=== PATIENT | male | born 1935 | race Caucasian/White ===

== ENCOUNTER → 2016-06-29 | Outpatient (CLI) | payer OTHER ==
[~2016-06-29] MED LIST: AMLO5CAP3 PO; PRVC20 PO; TRAV0.00 OPB; [UNRECOGNIZED DRUG - CODE] OPB
[2016-06-29 12:25] LABS: BASO % 0.8 %; BASO ABS # 0.06 K/uL (0-0.2); COMPLETE YES; EOS % 3.8 %; HEMATOCRIT 45.6 % (42-52); IG% 0.1 %; LYMPH % 25.5 %; LYMPH ABS # 1.83 K/uL (1.2-3.4); MEAN CORPUSCULAR HEMOGLOBIN 31.5 pg (25-34); MEAN CORPUSCULAR HGB CONC 33.6 g/dl (32-36); MEAN PLATELET VOLUME 10.3 fL (7.4-10.4); MONO % 10.2 %; NEUT % 59.6 %; PLATELET COUNT 199 K/uL (130-400); RED BLOOD COUNT 4.85 M/uL (4.7-6.1); WHITE BLOOD COUNT 7.19 K/uL (4.8-10.8)
[2016-06-29 12:44] LABS: ALT/SGPT 20 U/L (12-78); BLOOD UREA NITROGEN 29 mg/dl (7-18); BUN/CREATININE RATIO 26.6 (10-20); CALCIUM 8.9 mg/dl (8.5-10.1); CARBON DIOXIDE 30 mmol/L (21-32); CHLORIDE 108 mmol/L (98-107); CHOLESTEROL 189 mg/dl (0-200); GLUCOSE 108 mg/dl (70-99); POTASSIUM 4.2 mmol/L (3.5-5.1); SODIUM 143 mmol/L (136-145)
[2016-06-29 12:55] LABS: ALB/GLOB RATIO 1.2 (0.9-2); ALKALINE PHOSPHATASE 72 U/L (45-117); AST/SGOT 18 U/L (15-37); CHOLESTEROL/HDL RATIO 4.3; HDL CHOLESTEROL 44 mg/dl; LDL CHOLESTEROL CALCULATED 122 mg/dl; TRIGLYCERIDES 114 mg/dl (0-150); VERY LOW DENSITY LIPOPROT CALC 23 mg/dl
== END | disposition home or self-care (01) ==
LOC: C.LAB1850 09:44
PROVIDERS: ATTEND Internal Medicine
DX: D69.6 Thrombocytopenia, unspecified (principal); E78.5 Hyperlipidemia, unspecified

== ENCOUNTER → 2016-11-29 | Day surgery (SDC) | payer OTHER ==
[2016-11-22 10:13] VITALS: Ht 172.7 cm; Wt 68.2 kg
[~2016-11-29] VITALS: Ht 172.7 cm; Wt 68.2 kg
[~2016-11-29] MED LIST changes: +BRIMONIDINE TART 0.2% OP SOLN PER DROP CHARGE OPR ONE; +BRIMONIDINE TART 0.2% OP SOLN PER DROP CHARGE OPR SCH; +BRIMONIDINE TARTRATE 0.2% 5ML OP SCH; +PILOCARPINE HCL 2% OP SOLN PER DROP CHARGE OPR SCH; +PROPARACAINE 0.5% OP SOLN PER DROP CHARGE OPR SCH; +PrednisoLONE ACET 1% OP SUSP 5 ML BTL OP SCH; +PrednisoLONE ACET 1% OP SUSP 5 ML BTL OPR ONE; +[UNRECOGNIZED DRUG - CODE] OPB; -[UNRECOGNIZED DRUG - CODE] OPB
[2016-11-29 12:00] VITALS: BP 136/76; PULSE 61; O2SAT 97
--- NOTE | 2016-11-29 12:04 | Discharge Instructions-SurgCtr ---
Discharge Instructions Date of Service Nov 29, 2016. Visit Reason for Visit: Right Eye Glaucoma Discharge Discharge Diagnosis / Problem: cataract Discharge Goals Goal(s): Improve function, Improve disease control Activity Recommendations Activity Limitations: per Instructions/Follow-up section Anesthesia . Post Anesthesia Instructions: If you have had General Anesthesia or IV Sedation: * Do not drive today. * Resume driving when surgeon permits. * Do not make important decisions or sign legal documents today. * Call surgeon for: 1. Temperature elevations greater than 101 degrees F. 2. Uncontrollable pain. 3. Excessive bleeding. 4. Persistent nausea and vomiting. 5. Medication intolerance (nausea, vomiting or rash). * For nausea and vomiting use only clear liquids such as: tea, soda, bouillon until nausea subsides, then gradually increase diet as tolerated. * If you have any concerns or questions, call your surgeon's office. If physician is unavailable and it is an emergency, call 911 or go to the nearest emergency room. . Instructions / Follow-Up Instructions / Follow-Up ACTIVITY RECOMMENDATIONS: * No limitations RETURN TO SCHOOL/WORK: * No limitations DIET: * No limitations MEDICATIONS: Resume previous medications unless instructed otherwise by your surgeon. * Please use Prednisolone acetate drops prescription given to you at your office appointment as follows: 1 drop in effected eye 4 times a day for 5 days. * Continue all glaucoma drops as usual with no interruption to either eye. SPECIAL CARE INSTRUCTIONS: Call your doctor at with any concerns or problems. FOLLOW UP VISIT: Follow-up with Dr Dugan in 1 hour. Diet Recommendations Home Diet: resume previous diet Pending Studies Studies pending at discharge: no Medical Emergencies . Who to Call and When: Medical Emergencies: If at any time you feel your situation is an emergency, please call 911 immediately. . Non-Emergent Contact Non-Emergency issues call your: [employer] . . "Provider Documentation" section prepared by Hamzah Dugan. .
--- NOTE | 2016-11-29 12:05 | [facility] Operative Report ---
Operative Report Date of Service Nov 29, 2016. Operative Report Diagnosis: Glaucoma, right eye Procedure: SLT inferior 180 degrees, 52 spots, 1.6 mj Complications: none I attest to the content of the Intraoperative Record and any orders documented therein. Any exceptions are noted below.
== END | disposition home or self-care (01) ==
LOC: X.SURG 10:55
PROVIDERS: ATTEND Ophthalmology
DX: H40.9 Unspecified glaucoma (principal); I10 Essential (primary) hypertension

== ENCOUNTER → 2016-12-30 | Outpatient (CLI) | payer OTHER ==
[~2016-12-30] MED LIST changes: -BRIMONIDINE TART 0.2% OP SOLN PER DROP CHARGE OPR ONE; -BRIMONIDINE TART 0.2% OP SOLN PER DROP CHARGE OPR SCH; -BRIMONIDINE TARTRATE 0.2% 5ML OP SCH; -PILOCARPINE HCL 2% OP SOLN PER DROP CHARGE OPR SCH; -PROPARACAINE 0.5% OP SOLN PER DROP CHARGE OPR SCH; -PrednisoLONE ACET 1% OP SUSP 5 ML BTL OP SCH; -PrednisoLONE ACET 1% OP SUSP 5 ML BTL OPR ONE
== END | disposition home or self-care (01) ==
LOC: C.LAB1850 09:26
PROVIDERS: ATTEND Internal Medicine
DX: R73.9 Hyperglycemia, unspecified (principal)

== ENCOUNTER → 2017-06-29 | Outpatient (CLI) | payer OTHER ==
[~2017-06-29] MED LIST changes: +[UNRECOGNIZED DRUG - CODE] OPB; -[UNRECOGNIZED DRUG - CODE] OPB
[2017-06-29 12:26] LABS: ALT/SGPT 20 U/L (12-78); AST/SGOT 16 U/L (15-37); BLOOD UREA NITROGEN 25 mg/dl (7-18); CALCIUM 9.1 mg/dl (8.5-10.1); CARBON DIOXIDE 31 mmol/L (21-32); CHOLESTEROL 180 mg/dl (0-200); CREATININE 1.15 mg/dl (0.60-1.40); GLUCOSE 102 mg/dl (70-99); POTASSIUM 3.9 mmol/L (3.5-5.1); SODIUM 141 mmol/L (136-145)
[2017-06-29 12:30] LABS: LDL CHOLESTEROL CALCULATED 112 mg/dl
== END | disposition home or self-care (01) ==
LOC: C.LAB1850 09:53
PROVIDERS: ATTEND Internal Medicine
DX: E78.5 Hyperlipidemia, unspecified (principal); N40.0 Benign prostatic hyperplasia without lower urinary tract symptoms; I10 Essential (primary) hypertension

== ENCOUNTER 2021-08-07 10:01 | Inpatient (IN) ==
[2021-08-07] MEDS ORDERED: SODIUM CHLORIDE 0.9% 500 ML IV STA (10:21)
--- NOTE | 2021-08-07 10:23 | Emergency Department Note ---
Impression & Plan Empyema lung ADMIT ED Provider Note HPI: The patient is an 86-year-old gentleman with history of adenocarcinoma of the lung, malignant pleural effusion, history of COPD, presents the emergency department with some difficulty with his breathing last night. Patient states that he is having "hiccups" that were keeping him from getting any sleep last night. He does state that he seems to be working somewhat harder to breathe during this time as well. Denies any difficulty swallowing, denies any chest pain. Patient tells me that he had a Pleurx catheter removed yesterday for his pleural effusion, there was some surrounding cellulitis and purulence at the site, about 250 cc of fluid were removed from the site yesterday. Patient denies any fevers overnight, denies any chills, the site of the Pleurx catheter removal appears with some mild surrounding cellulitis but otherwise no crepitus to palpation and patient is in no acute distress. He does have bilateral breath sounds on presentation. He is saturating at 92% on room air on presentation. ROS: -Pulmonary: Shortness of breath, hiccups *10 point review systems was conducted and is otherwise negative unless stated above *Outpatient medications and allergy history reviewed PE: General: Alert, NAD HEENT: Normocephalic, atraumatic Eyes: Extraocular eye movement is intact, no scleral erythema Pulmonary: Diminished breath sounds on the right side, no wheezing or crackles Cardio: Regular rate and rhythm GI: Abdomen is soft, nontender : No suprapubic tenderness MSK: No evidence of trauma or malformation of the extremities, no edema Skin: No evidence of rash, there is some mild to moderate erythema surrounding the site on the right lower chest of catheter removal, no crepitus to palpation, no active purulent drainage Neuro: Alert, no focal deficits 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 This is in the setting of having a Pleurx catheter removed 2 days ago for malignant pleural effusion. He does have some cellulitic changes to the site. On arrival to the ED the patient does display some slight increased work of breathing on my exam but he is saturating well on room air, denies any chest pain, blood pressure stable. Shortly after arrival IV was established, lab work obtained, patient was placed on it architect. Lab work shows evidence of a new leukocytosis of 15.2, blood cultures were drawn in the ED, patient was started prophylactically on vancomycin and Zosyn. CT angiography of the chest does not show any evidence of pulmonary embolism but does show evidence of what appears to be an empyema in the region of the right lower lung where catheter was recently removed. I discussed the above findings with on-call pulmonology, Dr. Cho, who is in agreement for consultation states the patient will require pigtail catheter to be placed for evacuation of empyema. Patient was placed on 2 L nasal cannula oxygen, saturations remained in the high 90s following this, he has not had any true hypoxic episodes while here in the ED. Case was discussed with the on-call admitting team, [facility] and the patient was admitted in stable condition for further care and pulmonology consultation for empyema. Diagnosis: 1. Empyema, acute, right-sided 2. Leukocytosis 3. Dyspnea 4. History of malignant pleural effusion 5. Cellulitis of right chest wall Disposition: Admission Selvin Sutton DO Emergency Medicine Past Med/Surg History Medical History Actinic keratosis Acute gout Benign colon polyp BPH loc w urin obs/LUTS Carotid artery plaque Empyema lung Essential (primary) hypertension Glaucoma Hematuria Metastatic adenocarcinoma Pleural effusion on right Renal cyst, right Sensorineural hearing loss (SNHL) of both ears Tinnitus Surgical History History of prostate biopsy S/P cataract surgery Status post Mohs surgery Family History Daughter Colon cancer Mother Congestive heart failure Father Congestive heart failure Denies family history of Ovarian cancer Prostate cancer Myocardial infarction Breast cancer Social History Smoking Status: Former smoker Cigarettes Per Day: PIPE SMOKE FOR 5 YEARS - QUIT 50 YEARS AGO; Second Hand Exposure: No; Hx Alcohol Use: No Hx Substance Use: No Preferred Language: Colombian Communication Ability: Effective Visual Impairment: No Limitations Hearing Ability: Normal 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 Required: No Beliefs That Will Affect Care: None marital status: Current Living Situation: Spouse current occupational status: retired Feels Safe at Home: Yes Childhood Exposure to Second-Hand Smoke: Yes Dental Care, Regularly: Yes Physical Activity Frequency: Daily Seatbelt Use: always Sunscreen Use: Yes Assistive Devices: Glasses Allergies Allergies Allergy/AdvReac Type Severity Reaction Status Date / Time HMG-CoA-R Inhibitors Allergy Unknown Unknown Uncoded 08/07/21 11:11 Home Meds Home Medications Medication Instructions Recorded Confirmed travoprost 0.004 % eye drops 1 drops OP QPM 12/17/18 08/07/21 (Travatan Z) timolol 0.5 % eye drops 1 drp OPHTHALMIC (EYE) BID 05/18/20 08/07/21 pembrolizumab 25 mg/mL intravenous See Rx Instructions IV .COMPLEX 06/25/21 08/07/21 solution (Keytruda) Previous Rx's Medication Instructions Recorded pravastatin 20 mg tablet 20 mg PO DAILY #90 tab 08/07/20 tamsulosin 0.4 mg capsule 0.4 mg PO DAILY #90 cap 09/24/20 amlodipine 5 mg-benazepril 20 mg 1 cap PO DAILY #90 cap 11/17/20 capsule (Lotrel) ergocalciferol (vitamin D2) 1,250 1,250 mcg PO .COMPLEX #12 cap 05/11/21 mcg (50,000 unit) capsule tiotropium 2.5 mcg-olodaterol 2.5 2 puff INHALATION DAILY #4 g 07/02/21 mcg/actuation mist for inhalation (Stiolto Respimat) amoxicillin 875 mg-potassium 1 tab PO BID 14 Days #28 tab 08/05/21 clavulanate 125 mg tablet doxycycline hyclate 100 mg capsule 100 mg PO BID 14 Days #28 cap 08/05/21 Results & Data (ED) Vital Signs Vital Signs - 24 hr 08/07/21 10:07 08/07/21 10:56 08/07/21 11:02 Temperature 36.6 C Temperature Source Temporal Artery Scan Pulse Rate 105 H Pulse Rate [Apical] 77 Pulse Rhythm [Apical] Regular Respiratory Rate 18 16 Respiratory Effort / Characteristics Non-Labored Respiratory Depth Normal Blood Pressure 120/68 Blood Pressure [Right Arm] 102/50 L Blood Pressure Mean 85 Blood Pressure Mean [Right Arm] 67 Pulse Oximetry 92 96 99 Oxygen Delivery Method Room Air Nasal Cannula Room Air Oxygen Flow Rate 2 Sepsis Recent Fever Within 48 Hours No Sepsis New/Unexplained Change in Mental Status No Sepsis Action Taken by Nursing No Action Required Laboratory Data Result diagrams: 08/07/21 10:39 08/07/21 10:39 Lab Results 08/07/21 08/07/21 08/07/21 Range/Units 10:39 10:39 10:39 WBC 15.27 H (4.8-10.8) K/uL RBC 4.13 L (4.7-6.1) M/uL Hgb 13.0 L (14.0-18.0) g/dL Hct 39.3 L (42-52) % MCV 95.2 (80-100) fL MCH 31.5 (25-34) pg MCHC 33.1 (32-36) g/dL RDW Std Deviation 49.7 H (36.4-46.3) fL RDW Coeff of Nuno 14.4 (11.5-14.5) % Plt Count 558 H (130-400) K/uL MPV 9.3 (7.4-10.4) fL Immature Gran % (Auto) 0.4 % Neut % (Auto) 87.6 % Lymph % (Auto) 6.8 % [place] % (Auto) 4.7 % Eos % (Auto) 0.3 % Baso % (Auto) 0.2 % Neut # (Auto) 13.38 H (1.4-6.5) K/uL Lymph # (Auto) 1.04 L (1.2-3.4) K/uL [place] # (Auto) 0.72 H (0.11-0.59) K/uL Eos # (Auto) 0.04 (0-0.5) K/uL Baso # (Auto) 0.03 (0-0.2) K/uL Immature Gran # (Auto) 0.06 H (0.00-0.02) K/uL PT 11.9 (9.0-12.0) Seconds INR 1.1 (0.9-1.1) APTT 30.4 (21.0-31.0) Seconds PTT Ratio 1.1 Sodium (136-145) mmol/L Potassium (3.5-5.1) mmol/L Chloride (98-107) mmol/L Carbon Dioxide (21-32) mmol/L Anion Gap (3-11) BUN (6-23) mg/dl Creatinine (0.6-1.4) mg/dl Est Cr Clr Drug Dosing ml/min Est GFR ( Amer) ml/min Est GFR (Non-Af Amer) ml/min BUN/Creatinine Ratio (10-20) Glucose (70-99(Fasting)) mg/dl Calcium (8.5-10.1) mg/dl Total Bilirubin (0.2-1.0) mg/dl AST (13-39) U/L ALT (7-52) U/L Alkaline Phosphatase (34-104) U/L Troponin I High Sens 2.6 (0-20) pg/ml Total Protein (6.0-8.3) gm/dl Albumin (3.4-5.0) gm/dl Globulin (2.5-4.0) gm/dl Albumin/Globulin Ratio (0.9-2) Lipase (11-82) U/L SARS-CoV-2 (PCR) (Negative) Influenza Type A (PCR) (Neg) Influenza Type B (PCR) (Neg) RSV (RT-PCR) (Neg) 08/07/21 08/07/21 Range/Units 10:39 12:17 WBC (4.8-10.8) K/uL RBC (4.7-6.1) M/uL Hgb (14.0-18.0) g/dL Hct (42-52) % MCV (80-100) fL MCH (25-34) pg MCHC (32-36) g/dL RDW Std Deviation (36.4-46.3) fL RDW Coeff of Nuno (11.5-14.5) % Plt Count (130-400) K/uL MPV (7.4-10.4) fL Immature Gran % (Auto) % Neut % (Auto) % Lymph % (Auto) % [place] % (Auto) % Eos % (Auto) % Baso % (Auto) % Neut # (Auto) (1.4-6.5) K/uL Lymph # (Auto) (1.2-3.4) K/uL [place] # (Auto) (0.11-0.59) K/uL Eos # (Auto) (0-0.5) K/uL Baso # (Auto) (0-0.2) K/uL Immature Gran # (Auto) (0.00-0.02) K/uL PT (9.0-12.0) Seconds INR (0.9-1.1) APTT (21.0-31.0) Seconds PTT Ratio Sodium 138 (136-145) mmol/L Potassium 4.0 (3.5-5.1) mmol/L Chloride 103 (98-107) mmol/L Carbon Dioxide 28 (21-32) mmol/L Anion Gap 7 (3-11) BUN 23 (6-23) mg/dl Creatinine 0.95 (0.6-1.4) mg/dl Est Cr Clr Drug Dosing 46.4 ml/min Est GFR ( Amer) 83.7 ml/min Est GFR (Non-Af Amer) 72.2 ml/min BUN/Creatinine Ratio 24.2 H (10-20) Glucose 143 H (70-99(Fasting)) mg/dl Calcium 8.9 (8.5-10.1) mg/dl Total Bilirubin 0.5 (0.2-1.0) mg/dl AST 21 (13-39) U/L ALT 35 (7-52) U/L Alkaline Phosphatase 153 H (34-104) U/L Troponin I High Sens (0-20) pg/ml Total Protein 6.4 (6.0-8.3) gm/dl Albumin 2.6 L (3.4-5.0) gm/dl Globulin 3.8 (2.5-4.0) gm/dl Albumin/Globulin Ratio 0.7 L (0.9-2) Lipase 13 (11-82) U/L SARS-CoV-2 (PCR) NEGATIVE (Negative) Influenza Type A (PCR) Negative (Neg) Influenza Type B (PCR) Negative (Neg) RSV (RT-PCR) Negative (Neg) Administered Medications Vancomycin HCl 1,250 mg/ (Sodium Chloride) 525 mls @ 200 mls/hr IV NOW ONE Stop: 08/07/21 14:34 Last Admin: 08/07/21 13:08 Dose: 200 mls/hr Documented by: [id number] Discontinued Medications Albuterol (Albut/Ipratrop 3mg/0.5mg Neb 3 Ml Vial) 3 ml NEB NOW STA; Protocol Stop: 08/07/21 10:27 Last Admin: 08/07/21 10:43 Dose: 3 ml Documented by: [id number] Sodium Chloride (Nss) 500 mls @ 999 mls/hr IV .Q31M STA Stop: 08/07/21 10:51 Last Infusion: 08/07/21 11:21 Dose: 0 mls/hr Documented by: [id number] Admin: 08/07/21 10:45 Dose: 999 mls/hr Documented by: [id number] Piperacillin Sod/Tazobactam Sod (Zosyn) 4.5 gm in 120 mls @ 240 mls/hr IV NOW ONE Stop: 08/07/21 12:26 Last Admin: 08/07/21 12:23 Dose: 240 mls/hr Documented by: [id number] Ioversol (Optiray 320 125ml) 105 ml IV ONCE ONE Stop: 08/07/21 11:36 Last Admin: 08/07/21 11:36 Dose: 105 ml Documented by: [id number] Imaging Data Radiologist's Impression: Chest CTA 08/07/21 10:21 CT angio chest PE protocol CLINICAL HISTORY: Chest Pain, eval for PE TECHNIQUE: Multidetector row helical CT of the chest was performed with angiographic protocol. Coronal and sagittal reformations were obtained. Coronal and sagittal MIPS were obtained from the axial data set and were submitted for review. Automated dose lowering techniques and/or adjustment according to patient size were utilized for this exam. CT DOSE: 274.39 mGy.cm Comparison: Comparison is made to CT chest 05/18/2021 FINDINGS: Lungs and pleura: A large right pleural effusion is seen with multiple foci of air and a thickened enhancing rim. Atelectasis of the right lung is seen. Again noted is a spiculated right upper lobe nodule measuring 13 x 11 mm. Heart and pericardium: Heart size is normal. No pericardial effusion. Vessels: No evidence of pulmonary embolism. Moderate coronary artery calcifications are seen. Mediastinum and génesis: There is a 13 mm subcarinal lymph node. Additional subcentimeter nodes are seen in the mediastinum and right hilum. Chest wall and lower neck: Subcentimeter thyroid nodules are noted which do not require follow-up by ACR criteria. Abdomen: Unremarkable. Bones: Degenerative changes in the thoracic spine. IMPRESSION: 1. Interval development of a fluid collection with multiple foci of air in the right pleural space with enhancing thick rim. Findings are concerning for empyema. 2. Redemonstration of spiculated right upper lobe nodule concerning for a low density. 3. Leslye. Atelectasis of the right lung likely secondary to the empyema. 4. Subcarinal and mediastinal lymphadenopathy, likely reactive. ACT 112: Negative or not required by law. Electronically signed by: Ross Rowley M.D. 08/07/2021 11:48 AM Chest X-Ray 08/07/21 10:21 XR chest 1V portable CLINICAL HISTORY: Atypical chest pain TECHNIQUE: Single frontal radiograph of the chest was obtained. Comparison: Comparison is made to chest radiograph 06/16/2021 FINDINGS: No lines and tubes are seen. The cardiomediastinal silhouette is normal. There is a right lung base airspace opacity. Small to moderate right pleural effusion. IMPRESSION: Right lung base airspace opacity is somewhat improved from prior exam and may represent atelectasis, pneumonia, and/or aspiration. Interval improvement in small to moderate right pleural effusion. ACT 112: Negative or not required by law. Electronically signed by: Ross Rowley M.D. 08/07/2021 10:40 AM Discharge Plan Visit Data Chief Complaint: Illness Stated Complaint: hiccups last few days cant sleep ED Provider: Selvin Sutton Discharge Problem: Empyema lung Forms Stand Alone Forms: My [facility] Prescriptions Prescriptions: No Action pravastatin 20 mg tablet 20 mg PO DAILY Qty: 90 RF: 3 tamsulosin 0.4 mg capsule 0.4 mg PO DAILY Qty: 90 RF: 3 ergocalciferol (vitamin D2) 1,250 mcg (50,000 unit) capsule 1,250 mcg PO .COMPLEX Qty: 12 RF: 0 timolol 0.5 % drops 1 drp ophthalmic (eye) BID RF: 0 Stiolto Respimat 2.5-2.5 mcg/actuation mist 2 puff inhalation DAILY Qty: 4 RF: 5 Travatan Z 0.004 % drops 1 drops OP QPM RF: 0 amlodipine-benazepril [Lotrel] 5-20 mg capsule 1 cap PO DAILY Qty: 90 RF: 3 Keytruda 25 mg/mL solution See Rx Instructions IV .COMPLEX RF: 0 doxycycline hyclate 100 mg capsule 100 mg PO BID 14 Days Qty: 28 RF: 0 amoxicillin-pot clavulanate 875-125 mg tablet 1 tab PO BID 14 Days Qty: 28 RF: 0 Referrals Referrals: Yoan Nickerson MD [Primary Care Provider] -
[2021-08-07] MEDS ORDERED: ALBUT/IPRATROP 3MG/0.5MG NEB 3 ML VIAL NEB STA (10:26)
--- NOTE | 2021-08-07 10:41 | XRay Report ---
XR chest 1V portable CLINICAL HISTORY: Atypical chest pain TECHNIQUE: Single frontal radiograph of the chest was obtained. Comparison: Comparison is made to chest radiograph 06/16/2021 FINDINGS: No lines and tubes are seen. The cardiomediastinal silhouette is normal. There is a right lung base a irspace opacity. Small to moderate right pleural effusion. IMPRESSION: Right lung base airspace opacity is somewhat improved from prior exam and may represent atelectasis, pneumonia, and/or aspiration. Interval improvement in small to moderate right pleural effusion. ACT 112: Negative or not required by law. Electronically signed by: Ross Rowley M.D. 08/07/2021 10:40 AM
[2021-08-07 11:14] LABS: Basophils # (auto) 0.03 K/uL (0-0.2); Basophils % (auto) 0.2 %; Eosinophils # (auto) 0.04 K/uL (0-0.5); Eosinophils % (auto) 0.3 %; Hematocrit (blood only) 39.3 % (42-52); Immature Granulocytes # (auto) 0.06 K/uL (0.00-0.02); Immature Granulocytes % (auto) 0.4 %; Lymphocytes # (auto) 1.04 K/uL (1.2-3.4); Lymphocytes % (auto) 6.8 %; Mean Corpuscular Hemoglobin 31.5 pg (25-34); Mean Corpuscular Hgb Conc 33.1 g/dL (32-36); Mean Corpuscular Volume 95.2 fL (80-100); Mean Platelet Volume 9.3 fL (7.4-10.4); Monocytes # (auto) 0.72 K/uL (0.11-0.59); Monocytes % (auto) 4.7 %; Neutrophils # (auto) 13.38 K/uL (1.4-6.5); Neutrophils % (auto) 87.6 %; Platelet Count 558 K/uL (130-400); RDW Coefficient of Variation 14.4 % (11.5-14.5); RDW Standard Deviation 49.7 fL (36.4-46.3); Red Blood Count 4.13 M/uL (4.7-6.1); White Blood Count 15.27 K/uL (4.8-10.8)
[2021-08-07 11:16] LABS: INR 1.1 (0.9-1.1); Partial Thromboplastin Ratio 1.1; Partial Thromboplastin Time 30.4 Seconds (21.0-31.0); Prothrombin Time 11.9 Seconds (9.0-12.0)
[2021-08-07 11:20] LABS: Albumin Globulin Ratio 0.7 (0.9-2); Albumin Level 2.6 gm/dl (3.4-5.0); BUN Creatinine Ratio 24.2 (10-20); Bilirubin,Total 0.5 mg/dl (0.2-1.0); Calcium 8.9 mg/dl (8.5-10.1); Creatinine Clr Calc Pharmacy 46.4 ml/min; Est GFR (African American) 83.7 ml/min; Est GFR (Non-African American) 72.2 ml/min; Globulin 3.8 gm/dl (2.5-4.0); Total Protein 6.4 gm/dl (6.0-8.3)
[2021-08-07] MEDS ORDERED: OPTIRAY 320 125ml IV ONE (11:35)
--- NOTE | 2021-08-07 11:51 | CT Scan Report ---
CT angio chest PE protocol CLINICAL HISTORY: Chest Pain, eval for PE TECHNIQUE: Multidetector row helical CT of the chest was performed with angiographic protocol. Maria l and sagittal reformations were obtained. Coronal and sagittal MIPS were obtained from the axial keiko a set and were submitted for review. Automated dose lowering techniques and/or adjustment according to patient size were utilized for this exam. CT DOSE: 274.39 mGy.cm Comparison: Comparison is made to CT chest 05/18/2021 FINDINGS: Lungs and pleura: A large right pleural effusion is seen with multiple foci of air and a thickened en hancing rim. Atelectasis of the right lung is seen. Again noted is a spiculated right upper lobe nodu le measuring 13 x 11 mm. Heart and pericardium: Heart size is normal. No pericardial effusion. Vessels: No evidence of pulmonary embolism. Moderate coronary artery calcifications are seen. Mediastinum and génesis: There is a 13 mm subcarinal lymph node. Additional subcentimeter nodes are seen in the mediastinum and right hilum. Chest wall and lower neck: Subcentimeter thyroid nodules are noted which do not require follow-up by ACR criteria. Abdomen: Unremarkable. Bones: Degenerative changes in the thoracic spine. IMPRESSION: 1. Interval development of a fluid collection with multiple foci of air in the right pleural space w ith enhancing thick rim. Findings are concerning for empyema. 2. Redemonstration of spiculated right upper lobe nodule concerning for a low density. 3. Leslye. Atelectasis of the right lung likely secondary to the empyema. 4. Subcarinal and mediastinal lymphadenopathy, likely reactive. ACT 112: Negative or not required by law. Electronically signed by: Ross Rowley M.D. 08/07/2021 11:48 AM
[2021-08-07] MEDS ORDERED: PIPERACILL/TAZOBAC CONSULT ACTIVE PRN ×2 (11:57→15:42)
[2021-08-07] MEDS ORDERED: VANCOMYCIN CONSULT ACTIVE PRN ×2 (11:57→15:42)
[2021-08-07] MEDS ORDERED: VANCOMYCIN HCL 1,250 MG in SODIUM CHLORIDE 0.9% 500 ML IV ONE (11:57)
[2021-08-07] MEDS ORDERED: PIPERACILLIN/TAZOBACTAM 4.5 GM/120 ML BAG IV ONE (11:57)
--- NOTE | 2021-08-07 12:47 | Pulmonary Consultation ---
Date of Consultation August 07, 2021 Assessment & Plan (1) Empyema lung: (2) Metastatic adenocarcinoma: 86-year-old male with a history of metastatic adenocarcinoma of the lung presenting with an empyema likely related to an indwelling pleural catheter infection. Bedside ultrasound performed of the right hemithorax. Large loculated effusion noted. Right pigtail catheter placed with aspiration of fluid which will be sent for culture and chemistries. We will likely initiate MIST2 protocol once chest x-ray is complete and confirms adequate placement. Continue with broad- spectrum antibiotic treatment. Pleural fluid cultures from 2 days ago suggestive for Staphylococcus infection. Thank you for the consultation. Pulmonary continue following with you. 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 Patient had a Pleurx catheter that was removed on 08/05/2021 from the right hemithorax due to cellulitis. Patient underwent a CT chest today which demonstrates a split pleural sign with findings concerning for empyema. Pleural fluid cultures from the Pleurx catheter on 08/05/2021 seem to be growing Staphylococcus species. Patient was discharged after having his Pleurx catheter removed that same day with Augmentin and doxycycline. Patient also is notably on Keytruda for his adenocarcinoma. Allergies Allergy/AdvReac Type Severity Reaction Status Date / Time HMG-CoA-R Inhibitors Allergy Unknown Unknown Uncoded 08/07/21 11:11 Home Medications Medication Instructions Recorded Confirmed Type travoprost 0.004 % eye drops 1 drops OP QPM 12/17/18 08/07/21 History (Travatan Z) timolol 0.5 % eye drops 1 drp OPHTHALMIC (EYE) BID 05/18/20 08/07/21 History pravastatin 20 mg tablet 20 mg PO DAILY #90 tab 08/07/20 08/07/21 Rx tamsulosin 0.4 mg capsule 0.4 mg PO DAILY #90 cap 09/24/20 08/07/21 Rx amlodipine 5 mg-benazepril 20 mg 1 cap PO DAILY #90 cap 11/17/20 08/07/21 Rx capsule (Lotrel) ergocalciferol (vitamin D2) 1,250 1,250 mcg PO .COMPLEX #12 cap 05/11/21 08/07/21 Rx mcg (50,000 unit) capsule pembrolizumab 25 mg/mL intravenous See Rx Instructions IV .COMPLEX 06/25/21 08/07/21 History solution (Keytruda) tiotropium 2.5 mcg-olodaterol 2.5 2 puff INHALATION DAILY #4 g 07/02/21 08/07/21 Rx mcg/actuation mist for inhalation (Stiolto Respimat) amoxicillin 875 mg-potassium 1 tab PO BID 14 Days #28 tab 08/05/21 08/07/21 Rx clavulanate 125 mg tablet doxycycline hyclate 100 mg capsule 100 mg PO BID 14 Days #28 cap 08/05/21 08/07/21 Rx Patient History Medical History Actinic keratosis Acute gout Benign colon polyp BPH loc w urin obs/LUTS Carotid artery plaque Empyema lung Essential (primary) hypertension Glaucoma Hematuria Metastatic adenocarcinoma Pleural effusion on right Renal cyst, right Sensorineural hearing loss (SNHL) of both ears Tinnitus Surgical History History of prostate biopsy S/P cataract surgery Status post Mohs surgery Family History Daughter Colon cancer Mother Congestive heart failure Father Congestive heart failure Denies family history of Ovarian cancer Prostate cancer Myocardial infarction Breast cancer Social History Smoking Status: Former smoker Cigarettes Per Day: PIPE SMOKE FOR 5 YEARS - QUIT 50 YEARS AGO; Second Hand Exposure: No; Hx Alcohol Use: No Hx Substance Use: No Preferred Language: Thai Communication Ability: Effective Visual Impairment: No Limitations Hearing Ability: Normal 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 Uniforms Required: No Beliefs That Will Affect Care: None marital status: Current Living Situation: Spouse current occupational status: retired Feels Safe at Home: Yes Childhood Exposure to Second-Hand Smoke: Yes Dental Care, Regularly: Yes Physical Activity Frequency: Daily Seatbelt Use: always Sunscreen Use: Yes Assistive Devices: Glasses Review of Systems Review of Systems: All systems reviewed & are unremarkable except as noted in HPI & below Physical Exam Constitutional: + ill appearing and + thin Eyes: PERRL, conjunctivae normal, anicteric sclerae ENMT: external ear and nose normal, oropharynx normal Neck: trachea midline, no thyromegaly Respiratory: Diminished on the right side. Otherwise clear. Cardiovascular: RRR, no murmur, no edema Gastrointestinal (Abdomen): normal bowel sounds, soft, nontender, no hepatosplenomegaly Musculoskeletal: no cyanosis or clubbing, extremities motor strength 5/5 Skin: Cellulitic appearing area in the right chest wall. Induration noted. No fluctuance. Neurologic: PERRL, EOMI, accommodation nl, no face palsy, no dysarthria Psychiatric: A+Ox3, euthymic affect Results & Data Results & Data ([facility]) Vital Signs (Past 12 Hours) Vital Signs Temp Pulse Pulse Resp BP BP Pulse Ox 08/07/21 11:02 77 16 102/50 L 99 08/07/21 10:56 96 08/07/21 10:07 36.6 C 105 H 18 120/68 92 PG Care Time/CCT Total # of Minutes Spent Total Time Spent with Patient: Total time spent is greater than 50% in coordination of care (as documented) at patient's floor/unit and/or counseling patient: Coding Level of Care Code 96641 Initial Inpt Care Lvl 3 Diagnoses Empyema lung J86.9 Metastatic adenocarcinoma C79.9
--- NOTE | 2021-08-07 13:03 | History & Physical Report ---
Date of Service August 07, 2021 Assessment & Plan (1) Metastatic adenocarcinoma: Plan: - Had Pleurx catheter placed on 06/16 for malignant pleural effusion, however had to be removed on 08/05 due to developing cellulitis at catheter site. Patient placed on p.o. Augmentin and doxycycline. - Empyema seen on CTA here, will stop p.o. antibiotics and place empirically on vancomycin and Zosyn. - Pulmonary consult placed, case discussed with Dr. Monreal. Plan for pigtail catheter placement. Will defer to him for DVT PPx. - Pleural cultures from 08/05 growing Staphylococcus species. - Blood cultures collected today and sent. Pleural fluid from today sent for cultures and chemistry. - CXR s/p catheter placement without any evidence of pneumothorax. - Pembrolizumab every 3 weeks, was due for it this past , 08/05, however could not undergo due to cellulitis of Pleurx catheter site. Due for this upcoming , 08/12. (2) Empyema lung: Plan: - Vancomycin and Zosyn, as above. - WBC 15.7 on admission, with left shift. Ordered procalcitonin and repeat CBC in AM. (3) COPD (chronic obstructive pulmonary disease): Plan: - Stiolto inhaler daily, continue this or for hospital formulary equivalent. - Will order albuterol as needed. (4) Cellulitis: Plan: - Site of Pleurx catheter, reason for removal 2 days ago. Mildly erythematous, no crepitus or purulent drainage currently. Was on doxycycline Augmentin p.o., holding these in favor of IV ABX as above. (5) Essential (primary) hypertension: Plan: - Hold amlodipine/benazepril as patient is borderline hypotensive in ED. - Continue to monitor. (6) Hyperlipidemia: Plan: - Continue pravastatin 20 mg daily. (7) BPH loc w urin obs/LUTS: Plan: - Continue Flomax 0.4 mg daily. (8) Glaucoma: Plan: -Continue eyedrops. Plan: - Admit to PCU. - SCDS for DVT ppx, hold on lovenox for today 08/07, will be on MISt2 protocl s/p pigtail catheter placement. - Full Code. History of Present Illness Chief Complaint: Shortness of breath associated with hiccups Primary Care Provider: Yoan Nickerson MD Mr. 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 Cultures were obtained, so far growing Staphylococcus species. Since, he has had hiccups that interrupt his sleep and make it momentarily difficult for him to breathe, however no other symptoms, he denies fever/chills, weakness, fatigue, chest pain, palpitations, cough, abdominal pain, nausea, vomiting. In ED, borderline hypotensive 102/50, otherwise VS wnl and stable. Labs significant for WBC 15.27, Hgb 13.0, PLT 558, alk phos 153, albumin 2.6. COVID/RSV/Flu negative. CXR with right lung base airspace opacity is somewhat improved from prior exam and may represent atelectasis, pneumonia, and/or aspiration. Interval improvement in small to moderate right pleural effusion. Chest CTA with interval development of a fluid collection with multiple foci of air in the right pleural space with enhancing thick rim concerning for empyema. Re-demonstration of spiculated right upper lobe nodule concerning for a low density. Emphysema. Atelectasis of the right lung likely secondary to the empyema. Subcarinal and mediastinal lymphadenopathy, likely reactive. Blood cultures ordered, sent. Startes on vancomycin and zosyn in ED, will continue. Pulmonary consulted for evaluation and recommendations, performing ultrasound-guided right sided pigtail catheter placement at bedside for pleural effusion. Allergies Allergy/AdvReac Type Severity Reaction Status Date / Time HMG-CoA-R Inhibitors Allergy Unknown Unknown Uncoded 08/07/21 11:11 Home Medications Medication Instructions Recorded Confirmed Type travoprost 0.004 % eye drops 1 drops OP QPM 12/17/18 08/07/21 History (Travatan Z) timolol 0.5 % eye drops 1 drp OPHTHALMIC (EYE) BID 05/18/20 08/07/21 History pravastatin 20 mg tablet 20 mg PO DAILY #90 tab 08/07/20 08/07/21 Rx tamsulosin 0.4 mg capsule 0.4 mg PO DAILY #90 cap 09/24/20 08/07/21 Rx amlodipine 5 mg-benazepril 20 mg 1 cap PO DAILY #90 cap 11/17/20 08/07/21 Rx capsule (Lotrel) ergocalciferol (vitamin D2) 1,250 1,250 mcg PO .COMPLEX #12 cap 05/11/21 08/07/21 Rx mcg (50,000 unit) capsule pembrolizumab 25 mg/mL intravenous See Rx Instructions IV .COMPLEX 06/25/21 08/07/21 History solution (Keytruda) tiotropium 2.5 mcg-olodaterol 2.5 2 puff INHALATION DAILY #4 g 07/02/21 08/07/21 Rx mcg/actuation mist for inhalation (Stiolto Respimat) amoxicillin 875 mg-potassium 1 tab PO BID 14 Days #28 tab 08/05/21 08/07/21 Rx clavulanate 125 mg tablet doxycycline hyclate 100 mg capsule 100 mg PO BID 14 Days #28 cap 08/05/21 08/07/21 Rx Past Med/Surg History Medical History Actinic keratosis Acute gout Benign colon polyp BPH loc w urin obs/LUTS Carotid artery plaque Empyema lung Essential (primary) hypertension Glaucoma Hematuria Metastatic adenocarcinoma Pleural effusion on right Renal cyst, right Sensorineural hearing loss (SNHL) of both ears Tinnitus Surgical History History of prostate biopsy S/P cataract surgery Status post Mohs surgery Family History Daughter Colon cancer Mother Congestive heart failure Father Congestive heart failure Denies family history of Ovarian cancer Prostate cancer Myocardial infarction Breast cancer Social History Smoking Status: Former smoker Cigarettes Per Day: PIPE SMOKE FOR 5 YEARS - QUIT 50 YEARS AGO; Second Hand Exposure: No; Do You Dip or Chew Tobacco: No; Tobacco Cessation Education Requested by Patient: No Hx Alcohol Use: No Hx Substance Use: No Preferred Language: Syriac Communication Ability: Effective Visual Impairment: No Limitations Hearing Ability: Normal Alumnae Secretary Required: No Beliefs That Will Affect Care: None marital status: Current Living Situation: Spouse current occupational status: retired Other Information That Helps Us Care for You: No Feels Safe at Home: Yes Safety Concerns: Feels Safe At This Time Childhood Exposure to Second-Hand Smoke: Yes Dental Care, Regularly: Yes Physical Activity Frequency: Daily Seatbelt Use: always Sunscreen Use: Yes Assistive Devices: None Review of Systems Review of Systems: Constitutional: No fever/chills, weakness, fatigue, myalgias, anorexia, night sweats Eyes: No diplopia, no worsening or blurred vision ENT: normal hearing, no trouble swallowing Respiratory: No cough, sputum, dyspnea at rest or on exertion Cardiovascular: No chest pain, tightness or palpitations Abdomen: No pain, nausea, vomiting, diarrhea or constipation : Denies dysuria, hematuria, increased urgency/frequency, urinary retention Musculoskeletal: No joint pain, calf pain, swelling Neurologic: No weakness, numbness/tingling, or balance problems Psychiatric: No anxiety or depression Skin: No rash or itch Physical Exam Physical Exam: Physical exam: General: awake, alert, no apparent distress, on 2 LNC, right-sided pigtail catheter in place Head: Normocephalic, atraumatic ENT: PERRL, EOMI, no pharyngeal exudate, mucous membranes moist Chest: Clear to auscultation, on room air, no adventitious breath sounds Cardiac: Regular rate and rhythm, no murmur, no JVD, normal peripheral pulses, good capillary refill Abdominal: NABS x 4 quadrants, soft, nontender to palpation, no rebound, guarding or tenderness Extremities: Normal inspection, no peripheral edema or erythema, calfs nontender to palpation Psych: Normal mood and affect Neuro: AAO x 3, strength intact bilaterally and rated 5/5, no motor deficits, speech is clear, no peripheral sensory deficits Skin: Mild erythema under right breast where a Pleurx catheter was previously placed; no crepitus, purulent drainage Results & Data Results & Data ([facility]) Vital Signs (Past 12 Hours) Vital Signs Temp Pulse Pulse Resp BP BP Pulse Ox 08/07/21 11:02 77 16 102/50 L 99 08/07/21 10:56 96 08/07/21 10:07 36.6 C 105 H 18 120/68 92 Laboratory Results Abnormal lab results 08/07/21 08/07/21 Range/Units 10:39 10:39 WBC 15.27 H (4.8-10.8) K/uL RBC 4.13 L (4.7-6.1) M/uL Hgb 13.0 L (14.0-18.0) g/dL Hct 39.3 L (42-52) % RDW Std Deviation 49.7 H (36.4-46.3) fL Plt Count 558 H (130-400) K/uL Neut # (Auto) 13.38 H (1.4-6.5) K/uL Lymph # (Auto) 1.04 L (1.2-3.4) K/uL Navarro # (Auto) 0.72 H (0.11-0.59) K/uL Immature Gran # (Auto) 0.06 H (0.00-0.02) K/uL BUN/Creatinine Ratio 24.2 H (10-20) Glucose 143 H (70-99(Fasting)) mg/dl Alkaline Phosphatase 153 H (34-104) U/L Albumin 2.6 L (3.4-5.0) gm/dl Albumin/Globulin Ratio 0.7 L (0.9-2) Diagnostic Findings Chest CTA 08/07/21 10:21 CT angio chest PE protocol CLINICAL HISTORY: Chest Pain, eval for PE TECHNIQUE: Multidetector row helical CT of the chest was performed with angiographic protocol. Coronal and sagittal reformations were obtained. Coronal and sagittal MIPS were obtained from the axial data set and were submitted for review. Automated dose lowering techniques and/or adjustment according to patient size were utilized for this exam. CT DOSE: 274.39 mGy.cm Comparison: Comparison is made to CT chest 05/18/2021 FINDINGS: Lungs and pleura: A large right pleural effusion is seen with multiple foci of air and a thickened enhancing rim. Atelectasis of the right lung is seen. Again noted is a spiculated right upper lobe nodule measuring 13 x 11 mm. Heart and pericardium: Heart size is normal. No pericardial effusion. Vessels: No evidence of pulmonary embolism. Moderate coronary artery calcifications are seen. Mediastinum and génesis: There is a 13 mm subcarinal lymph node. Additional subcentimeter nodes are seen in the mediastinum and right hilum. Chest wall and lower neck: Subcentimeter thyroid nodules are noted which do not require follow-up by ACR criteria. Abdomen: Unremarkable. Bones: Degenerative changes in the thoracic spine. IMPRESSION: 1. Interval development of a fluid collection with multiple foci of air in the right pleural space with enhancing thick rim. Findings are concerning for empyema. 2. Redemonstration of spiculated right upper lobe nodule concerning for a low density. 3. Leslye. Atelectasis of the right lung likely secondary to the empyema. 4. Subcarinal and mediastinal lymphadenopathy, likely reactive. ACT 112: Negative or not required by law. Electronically signed by: Ross Rowley M.D. 08/07/2021 11:48 AM Chest X-Ray 08/07/21 10:21 XR chest 1V portable CLINICAL HISTORY: Atypical chest pain TECHNIQUE: Single frontal radiograph of the chest was obtained. Comparison: Comparison is made to chest radiograph 06/16/2021 FINDINGS: No lines and tubes are seen. The cardiomediastinal silhouette is normal. There is a right lung base airspace opacity. Small to moderate right pleural effusion. IMPRESSION: Right lung base airspace opacity is somewhat improved from prior exam and may represent atelectasis, pneumonia, and/or aspiration. Interval improvement in small to moderate right pleural effusion. ACT 112: Negative or not required by law. Electronically signed by: Ross Rowley M.D. 08/07/2021 10:40 AM Chest X-Ray 08/07/21 14:15 XR chest 1V portable CLINICAL HISTORY: s/p right pigtail catheter TECHNIQUE: Single frontal radiograph of the chest was obtained. Comparison: Comparison is made to chest radiograph 08/07/2021 FINDINGS: Interval placement of right pigtail catheter. The cardiomediastinal silhouette is normal. Stable appearance of right lower lung airspace opacities. Stable right pleural effusion. No evidence of pneumothorax. IMPRESSION: Status post placement of right pigtail catheter without evidence of pneumothorax. ACT 112: Negative or not required by law. Electronically signed by: Ross Rowley M.D. 08/07/2021 2:29 PM ECG Additional Comments: Normal sinus rhythm with sinus arrhythmia Normal ECG No previous ECGs available. No ST segment or T wave changes. Code Status & VTE Plan Code Status Full code. Supervising Physician Co-Signing Physician Notes I personally saw and examined the patient. I verified all burris points and agree with Edna Jeter PA-C with the following exceptions and/or additions: 86 year old male admission due to shortness of breath. Known metastatic lung adenocarcinoma O/E patient using accessory muscles, Mild dark erythema surrounding previous pleurx site. Right basal diminished breath sounds, no crackles or wheezing. A/P Empyema - discussed care with Dr Monreal at patient bedside. Pigtail catheter about to be placed. Will place on broad spectrum antibiotics pending full identification of staph species fro pleural fluid from 08/07. PG Care Time/CCT Total # of Minutes Spent Total Time Spent with Patient: Total time spent is greater than 50% in coordination of care (as documented) at patient's floor/unit and/or counseling patient: Coding Level of Care Code 88605 Initial Inpt Care Lvl 3 Diagnoses Metastatic adenocarcinoma C79.9 COPD (chronic obstructive pulmonary disease) J44.9 Empyema lung J86.9 Cellulitis L03.90 Glaucoma H40.9 Essential (primary) hypertension I10 BPH loc w urin obs/LUTS N40.1 Hyperlipidemia E78.5
[2021-08-07 13:18] LABS: Influenza A virus by PCR Negative (Neg); Influenza B virus by PCR Negative (Neg); RSV by PCR Negative (Neg); SARS CoV2 RNA(COVID-19) InHosp NEGATIVE (Negative)
[2021-08-07] MEDS ORDERED: LIDOCAINE 1% LOCAL 20 ML VIAL ONE (13:29)
--- NOTE | 2021-08-07 14:28 | Procedure Note ---
Procedure Note Date of Service August 07, 2021 Note PIGTAIL CATHETER PLACEMENT NOTE: Procedure: Pigtail Catheter Chest Tube Placement Indication: Empyema Anesthesia: 15 mL lidocaine 1% Written consent was obtained and placed on the chart. Timeout was done prior to the procedure. Prior to procedure, chest x-ray films were reviewed by myself and demonstrated a large loculated effusion. A time-out was completed verifying correct patient, procedure, site, positioning, and implant(s) or special equipment if applicable. Utilizing bedside ultrasound, chest wall was evaluated for location for optimal chest tube placement. Location between the fifth and sixth ribs were marked on the skin using gentle pressure. The right sided chest wall was prepped with chlorhexidine and draped in the typical sterile fashion. 15 mL of 1% Lidocaine without epinephrine was used to anesthetize the skin down to the dorsal surface of the fifth rib. Fluid return confirmed entry into the pleural space. Lidocaine was injected into the pleural space for increased anesthetization. Introducer needle on syringe was inserted in perpendicular fashion taking care to ride just above the dorsal surface of the sixth rib. Entry into the pleural space was heralded by fluid return into the syringe while under gentle aspiration. Guide wire was advanced into the pleural space without resistance and the introducer needle was subsequently removed. Scalpel was used to make small incision of the superficial tissue, parallel to the direction of the rib anatomy. Dilator was advanced uneventfully over the guide wire into the pleural space. 14 Welsh Pigtail Catheter was inserted into the pleural space. Inner introducer and guide wire were removed. Drain was immediately connected to pre- prepared SYDNIE pleur-evac system. Pigtail was sutured securely in place and sterile dressing was applied. Chest tube was placed to -20 cmH2O suction. Patient tolerated procedure well. Blood Loss: Minimal Complications: None Post procedure chest x-ray ordered. Coding CPT Codes Pulmonary/Thoracic - Pulmonary and Thoracic: 55814 US, Chest, real time with imaging documentation ([id number]) Pulmonary/Thoracic - Pulmonary and Thoracic: 91493 Tube thoracostomy ([id number]) [facility] [place] Procedure Codes (Charges) Pulmonary/Thoracic Procedure 1: Pulmonary and Thoracic: 69997 US, Chest, real time with imaging documentation Procedure 2: Pulmonary and Thoracic: 74818 Tube thoracostomy
--- NOTE | 2021-08-07 14:30 | XRay Report ---
XR chest 1V portable CLINICAL HISTORY: s/p right pigtail catheter TECHNIQUE: Single frontal radiograph of the chest was obtained. Comparison: Comparison is made to chest radiograph 08/07/2021 FINDINGS: Interval placement of right pigtail catheter. The cardiomediastinal silhouette is normal. Stable appe arance of right lower lung airspace opacities. Stable right pleural effusion. No evidence of pneumoth orax. IMPRESSION: Status post placement of right pigtail catheter without evidence of pneumothorax. ACT 112: Negative or not required by law. Electronically signed by: Ross Rowley M.D. 08/07/2021 2:29 PM
[2021-08-07 15:33] LABS: Amylase Pleural Fluid 22 U/L; Glucose Pleural Fluid < 10 mg/dl; LDH Pleural Fluid 8066 U/L; Total Protein Pleural Fluid < 3.0 gm/dl
[2021-08-07 15:37] LABS: Appearance Pleural Fluid BLOODY; Basophils, Fluid 0 %; Color Pleural Fluid RED; Eosinophils, Fluid 3 %; Lymphocytes, Fluid 2 %; Mono,Macrophage,Mesothelial 0 %; Neutrophils, Fluid 95 %; RBC Pleural Fluid (A) 36000 /uL; Source Pleural Fluid RIGHT LUNG; WBC Pleural Fluid (A) 29888 /uL
[2021-08-07] MEDS ORDERED: ALBUTEROL 0.083% NEBU SOLN 3 ML VIAL NEB PRN (15:42)
[2021-08-07] MEDS ORDERED: ONDANSETRON INJ 2 MG/ML 2 ML VIAL IV PRN (15:42)
[2021-08-07] MEDS ORDERED: ACETAMINOPHEN 325 MG TAB PO PRN (15:42)
[2021-08-07] MEDS ORDERED: POLYETHYLENE (MIRALAX) 17 GM PACK PO PRN (15:42)
[2021-08-07] MEDS: ALTEPLASE, RECOMBINANT 10 MG in SYRINGE 50 ML IPL SCH (16:38)
[2021-08-07] MEDS ORDERED: TAMSULOSIN HCL 0.4 MG CAP PO ONE (17:00)
[2021-08-07] MEDS: DORNASE ALFA 5 ML in SYRINGE 25 ML IPL SCH (17:43)
[2021-08-07] MEDS: PRAVASTATIN SOD 20 MG TAB PO SCH (18:12)
[2021-08-07] MEDS: PIPERACILLIN/TAZOBACTAM 4.5 GM in DEXTROSE 5% 100 ML IV SCH (18:12)
[2021-08-07] MEDS ORDERED: Nursing to Pharmacy Communication SCH (20:15)
[2021-08-07] MEDS: TRAVOPROST Z 0.004% OPH SOLN 2.5 ML BTL OP SCH (21:48)
[2021-08-07] MEDS: TIMOLOL MALEATE 0.5% OP SOLN 5 ML BTL OP SCH (21:49)
[2021-08-07] MEDS ORDERED: VANCOMYCIN HCL 1,000 MG in SODIUM CHLORIDE 0.9% 250 ML IV SCH (22:00)
[2021-08-08] MEDS: PIPERACILLIN/TAZOBACTAM 4.5 GM in DEXTROSE 5% 100 ML IV SCH (01:27)
[2021-08-08] MEDS: ALTEPLASE, RECOMBINANT 10 MG in SYRINGE 50 ML IPL SCH ×3 (04:30→21:48)
[2021-08-08 05:31] LABS: Appearance Urine Clear (Clear); Bacteria Urine Automated Negative (Negative); Bilirubin Urine Negative (Negative); Blood Urine 3+ (Negative); Color Urine Yellow; Glucose Urine UA Negative (Negative); Ketones Urine Negative (Negative); Leukocyte Esterase Urine Negative (Negative); Nitrite Urine Negative (Negative); Protein Urine Negative (Negative); RBC Urine Automated >30 /hpf (0-4); Specific Gravity Urine 1.027 (1.000-1.030); Urobilinogen Urine Negative (Negative)
[2021-08-08] MEDS: DORNASE ALFA 5 ML in SYRINGE 25 ML IPL SCH ×2 (05:40→15:04)
--- NOTE | 2021-08-08 06:17 | Communication Note ---
Date of Service: August 08, 2021 08/07/21 at 9:45pm -- Patient with urinary retention and bladder scan of 600cc. Patient with no symptoms other than the retention. Ordered straight cath. 08/08/21 at 5:00 am -- Patient still w/ urinary retention and some blood clots with straining to urinate. Most recent dose of alteplase given at 4:30am. Ordered harvey and UA. Per RN, after placement of harvey there was 450cc of mild hematuria which cleared as urine came out; urine sent for UA.
[2021-08-08 06:23] LABS: Albumin Globulin Ratio 0.6 (0.9-2); Albumin Level 2.2 gm/dl (3.4-5.0); BUN Creatinine Ratio 19.4 (10-20); Bilirubin,Total 0.5 mg/dl (0.2-1.0); Calcium 8.4 mg/dl (8.5-10.1); Creatinine Clr Calc Pharmacy 46.2 ml/min; Est GFR (African American) 85.9 ml/min; Est GFR (Non-African American) 74.1 ml/min; Globulin 3.4 gm/dl (2.5-4.0); Total Protein 5.6 gm/dl (6.0-8.3)
[2021-08-08 06:34] LABS: Basophils # (auto) 0.03 K/uL (0-0.2); Basophils % (auto) 0.2 %; Eosinophils # (auto) 0.09 K/uL (0-0.5); Eosinophils % (auto) 0.7 %; Hematocrit (blood only) 37.3 % (42-52); Hemoglobin 12.1 g/dL (14.0-18.0); Immature Granulocytes # (auto) 0.06 K/uL (0.00-0.02); Immature Granulocytes % (auto) 0.5 %; Lymphocytes # (auto) 1.49 K/uL (1.2-3.4); Lymphocytes % (auto) 12.1 %; Mean Corpuscular Hemoglobin 30.7 pg (25-34); Mean Corpuscular Hgb Conc 32.4 g/dL (32-36); Mean Corpuscular Volume 94.7 fL (80-100); Mean Platelet Volume 9.1 fL (7.4-10.4); Monocytes # (auto) 0.62 K/uL (0.11-0.59); Neutrophils % (auto) 81.5 %; Platelet Count 471 K/uL (130-400); RDW Coefficient of Variation 14.4 % (11.5-14.5); RDW Standard Deviation 49.4 fL (36.4-46.3); Red Blood Count 3.94 M/uL (4.7-6.1); White Blood Count 12.29 K/uL (4.8-10.8)
--- NOTE | 2021-08-08 07:35 | Urology Consultation ---
Date of Consultation August 08, 2021 Assessment & Plan (1) Urinary retention: Urinary retention may be secondary to blood clot that has been evacuated. This blood clot may have been precipitated by medicines administered with the mist 2 protocol Urinalysis has been checked and was not taken for infection Urine appears clear at the present time Recommend maintaining Cruz catheter for 24 hours with bladder rest at which time consideration can be given to attempting a voiding trial History of Present Illness Reason for Consultation: Urinary retention Attending Physician: Hayden Morales MD History of Present Illness This is an 86-year-old male with a history of stage IV lung cancer. He was admitted to the hospital on 08/07/2021 secondary to worsening shortness of breath and cough. It is nowhere the mention that the patient had a Pleurx catheter in place and this was removed on 08/05/2021 secondary to concern for cellulitis. Time of admission he underwent a CT scan that showed concern for developing empyema in his pleural space on the right side. Because of this pulmonary was consulted and patient had a right pigtail catheter placed in the mist 2 protocol was initiated. Since admission patient was noted to have urinary retention and he required straight cath on 08/07/2021 for 600 cc of fluid. He continued to have urinary retention and he was passing some blood clots and straining to urinate so he had a Cruz catheter placed at which time 450 cc of blood colored urine had been placed but this has subsequently cleared. I question the patient got urinary tension and he has never had this problem before. He denies any dysuria. He denies any back pain. Since Cruz catheter has been placed again his urine has cleared and the patient notes symptomatic relief. Allergies Allergy/AdvReac Type Severity Reaction Status Date / Time HMG-CoA-R Inhibitors Allergy Unknown Unknown Uncoded 08/07/21 11:11 Home Medications Medication Instructions Recorded Confirmed Type travoprost 0.004 % eye drops 1 drops OP QPM 12/17/18 08/07/21 History (Travatan Z) timolol 0.5 % eye drops 1 drp OPHTHALMIC (EYE) BID 05/18/20 08/07/21 History pravastatin 20 mg tablet 20 mg PO DAILY #90 tab 08/07/20 08/07/21 Rx tamsulosin 0.4 mg capsule 0.4 mg PO DAILY #90 cap 09/24/20 08/07/21 Rx amlodipine 5 mg-benazepril 20 mg 1 cap PO DAILY #90 cap 11/17/20 08/07/21 Rx capsule (Lotrel) ergocalciferol (vitamin D2) 1,250 1,250 mcg PO .COMPLEX #12 cap 05/11/21 08/07/21 Rx mcg (50,000 unit) capsule pembrolizumab 25 mg/mL intravenous See Rx Instructions IV .COMPLEX 06/25/21 08/07/21 History solution (Keytruda) tiotropium 2.5 mcg-olodaterol 2.5 2 puff INHALATION DAILY #4 g 07/02/21 08/07/21 Rx mcg/actuation mist for inhalation (Stiolto Respimat) amoxicillin 875 mg-potassium 1 tab PO BID 14 Days #28 tab 08/05/21 08/07/21 Rx clavulanate 125 mg tablet doxycycline hyclate 100 mg capsule 100 mg PO BID 14 Days #28 cap 08/05/21 08/07/21 Rx Patient History Medical History Actinic keratosis Acute gout Benign colon polyp BPH loc w urin obs/LUTS Carotid artery plaque Empyema lung Essential (primary) hypertension Glaucoma Hematuria Metastatic adenocarcinoma Pleural effusion on right Renal cyst, right Sensorineural hearing loss (SNHL) of both ears Tinnitus Surgical History History of prostate biopsy S/P cataract surgery Status post Mohs surgery Family History Daughter Colon cancer Mother Congestive heart failure Father Congestive heart failure Denies family history of Ovarian cancer Prostate cancer Myocardial infarction Breast cancer Social History Smoking Status: Former smoker Cigarettes Per Day: PIPE SMOKE FOR 5 YEARS - QUIT 50 YEARS AGO; Second Hand Exposure: No; Do You Dip or Chew Tobacco: No; Tobacco Cessation Education Requested by Patient: No Hx Alcohol Use: No Hx Substance Use: No Preferred Language: Gibraltarian Communication Ability: Effective Visual Impairment: No Limitations Hearing Ability: Normal Barrel Rifler Hook Required: No Beliefs That Will Affect Care: None marital status: Current Living Situation: Spouse current occupational status: retired Other Information That Helps Us Care for You: No Feels Safe at Home: Yes Safety Concerns: Feels Safe At This Time Childhood Exposure to Second-Hand Smoke: Yes Dental Care, Regularly: Yes Physical Activity Frequency: Daily Seatbelt Use: always Sunscreen Use: Yes Assistive Devices: Glasses Review of Systems Constitutional: no fever Eyes: no eye pain Ear, Nose, Mouth, Throat: no ear pain Respiratory: + cough and + dyspnea Cardiovascular: no chest pain Gastrointestinal: no nausea and no vomiting Genitourinary: + as per Subjective / HPI Musculoskeletal: no back pain Integumentary: no rash Neurologic: no localized weakness Physical Exam Constitutional: no acute distress Eyes: no conjunctival abnormality ENMT: Ears: no hearing impairment Neck: trachea midline Respiratory: normal respiratory effort; no respiratory distress and no labored breathing Cardiovascular: Rate/Rhythm: regular rate and regular rhythm Gastrointestinal (Abdomen): Soft and nontender Musculoskeletal: No calf tenderness Skin: no rashes Neurologic: moves all extremities Psychiatric: A+Ox3, euthymic affect Genitourinary: no CVA tenderness Results & Data ([facility]) Vital Signs (Past 12 Hours) Vital Signs Temp Pulse Pulse Resp BP Pulse Ox 08/08/21 04:45 36.8 C 84 18 112/65 98 08/08/21 01:34 88 08/08/21 00:45 36.8 C 80 18 102/59 L 97 08/07/21 19:43 37.0 C 90 18 134/79 95 PG Care Time/CCT Total # of Minutes Spent Total Time Spent with Patient: Total time spent is greater than 50% in coordination of care (as documented) at patient's floor/unit and/or counseling patient: Coding Level of Care Code 96129 Inpt Consult Level 5 Diagnoses Urinary retention R33.9
--- NOTE | 2021-08-08 09:04 | Pulmonology Progress Note ---
Date of Service August 08, 2021 Assessment & Plan (1) Empyema lung: (2) Metastatic adenocarcinoma: Plan: 86-year-old male with a history of metastatic adenocarcinoma of the lung presenting with an empyema likely related to an indwelling pleural catheter infection. Chest x-ray with improvement today. Continue tPA and dornase instillations via the pigtail. Instructed nurse to leave the dwell time of the tPA to be 4 hours in the pleural space with repositioning frequently so that we can break up the loculations. Cellulitis around the chest tubes insertion site appears to be improving. No significant bleeding seen. Pleural cultures consistent with MSSA. Will de-escalate antibiotics to Unasyn. Thank you for the consultation. Pulmonary continue following with you. Admission and Anticipated Discharge Date Admission Date: August 07, 2021 Subjective Patient tolerating pigtail catheter well. Approximately 1 L of drainage overnight. He denies any pain or shortness of breath. He feels that his hiccups have improved compared to yesterday. Review of Systems Review of Systems: All systems reviewed & are unremarkable except as noted in HPI & below Physical Exam Constitutional: + ill appearing and + thin Eyes: PERRL, conjunctivae normal, anicteric sclerae ENMT: external ear and nose normal, oropharynx normal Neck: trachea midline, no thyromegaly Cardiovascular: RRR, no murmur, no edema Gastrointestinal (Abdomen): normal bowel sounds, soft, nontender, no hepatosplenomegaly Musculoskeletal: no cyanosis or clubbing, extremities motor strength 5/5 Neurologic: PERRL, EOMI, accommodation nl, no face palsy, no dysarthria Psychiatric: A+Ox3, euthymic affect Results & Data Results & Data ([facility]) Vital Signs (Past 12 Hours) Vital Signs Temp Pulse Pulse Resp BP Pulse Ox 08/08/21 08:14 36.5 C 79 18 107/50 L 95 08/08/21 04:45 36.8 C 84 18 112/65 98 08/08/21 01:34 88 08/08/21 00:45 36.8 C 80 18 102/59 L 97 PG Care Time/CCT Total # of Minutes Spent Total Time Spent with Patient: Total time spent is greater than 50% in coordination of care (as documented) at patient's floor/unit and/or counseling patient: Coding Level of Care Code 11451 Subseq Hosp Care Lvl 3 Diagnoses Empyema lung J86.9 Metastatic adenocarcinoma C79.9
--- NOTE | 2021-08-08 09:07 | XRay Report ---
XR chest 1V portable HISTORY: Chest tube ? MIST 2 protocol COMPARISON: Chest 08/07/2021. FINDINGS: The left lung remains clear. The heart is mildly enlarged. Consolidative airspace opacities within the right mid to lower lung zone are again noted. Right basilar pleural catheter is unchanged in position. There is gas within the right basilar pleural space likely due to the catheter placemen t and partial resolution of the right pleural effusion. IMPRESSION: 1. Right basilar pleural catheter is unchanged in position. There is gas within the right basilar ple ural space likely due to the catheter placement and partial resolution of the right pleural effusion. 2. Right mid to lower lung zone airspace opacities are again noted. ACT 112: Negative or not required by law. Electronically signed by: Jesus Enamorado M.D. 08/08/2021 9:06 AM
--- NOTE | 2021-08-08 10:06 | Electrocardiogram Report ---
Test Reason : Blood Pressure : / mmHG Vent. Rate : 084 BPM Atrial Rate : 084 BPM P-R Int : 208 ms QRS Dur : 076 ms QT Int : 352 ms P-R-T Axes : 004 014 047 degrees QTc Int : 415 ms Normal sinus rhythm with sinus arrhythmia Normal ECG No previous ECGs available Confirmed by Oziel Peres ([id number]) on 08/08/2021 10:06:35 AM Referred By: REFERRED SELF Confirmed By:Oziel Peres
[2021-08-08] MEDS: TAMSULOSIN HCL 0.4 MG CAP PO SCH (10:29)
[2021-08-08] MEDS: AMPICILLIN/SULBACTAM SOD 3,000 MG in 0.9 % SODIUM CHLORIDE 100 ML IV SCH ×3 (10:29→21:55)
[2021-08-08] MEDS: PRAVASTATIN SOD 20 MG TAB PO SCH ×2 (10:30→17:52)
[2021-08-08] MEDS: TIMOLOL MALEATE 0.5% OP SOLN 5 ML BTL OP SCH ×2 (10:30→21:51)
[2021-08-08] MEDS: UMECLIDINIUM/VILANTEROL 62.5/25MCG 7 PUFFS/INHALER INH SCH (10:31)
--- NOTE | 2021-08-08 11:54 | Hospitalist Progress Note ---
Date of Service August 08, 2021 Assessment & Plan (1) Empyema lung: Plan: Had Pleurx catheter placed on 06/16 for malignant pleural effusion, however had to be removed on 08/05 due to developing cellulitis at catheter site. Patient placed on p.o. Augmentin and doxycycline at that time. - Pleural fluid from 08/05 growing MSSA. - Continue Unasyn per pulm - Undergoing MIST2 protocol (2) Metastatic adenocarcinoma: Plan: Had Pleur-X for recurrent malignant effusions. Empyema seen on CTA here. - Pulmonary following for empyema. - Pembrolizumab every 3 weeks, was due for it this past , 08/05, however could not undergo due to cellulitis of Pleurx catheter site. Due for this upcoming , 08/12. (3) BPH loc w urin obs/LUTS: Plan: Had urinary retention overnight of 08/07 and required Cruz. Had some clots that were flushed out, unclear if this was from trauma from catheter insertion, alteplase from MIST protocol, or combination. - Continue Flomax 0.4 mg daily. - Urology following - Keep Cruz for another 24 hours or so. (4) COPD (chronic obstructive pulmonary disease): Plan: - Stiolto inhaler daily, continue this or for hospital formulary equivalent. - Albuterol as needed. (5) Cellulitis: Plan: Site of Pleurx catheter, reason for removal 2 days ago. Mildly erythematous, no crepitus or purulent drainage currently. Was on doxycycline Augmentin p.o., holding these in favor of IV ABX as above. - As above (6) Essential (primary) hypertension: Plan: BP today is 105/60. - Hold amlodipine/benazepril - Continue to monitor. (7) Hyperlipidemia: Plan: - Continue pravastatin 20 mg daily. (8) Glaucoma: Plan: - Continue eyedrops. Plan: SCDS for DVT ppx, hold on lovenox for today 08/07, will be on MIST2 protocol s/p pigtail catheter placement. Admission and Anticipated Discharge Date Admission Date: August 07, 2021 Subjective Doing well. No hiccups. No pain. Reports no fevers/chills, chest pain, shortness of breath, abdominal pain, nausea, or vomiting. Physical Exam Constitutional: WD/WN, vitals as above Eyes: EOM intact bilaterally; no conjunctival abnormality ENMT: external ear and nose normal, oropharynx normal Neck: trachea midline, no thyromegaly normal visual inspection Respiratory: normal respiratory effort, lungs clear to auscultation no respiratory distress Pigtail drain on right side Cardiovascular: RRR, no murmur, no edema Chest (Breasts): Chest: normal inspection of chest Gastrointestinal (Abdomen): Inspection/Auscultation: abdomen normal to inspection; abdomen not distended Musculoskeletal: no cyanosis or clubbing, extremities motor strength 5/5 Skin: no rashes, warm and dry Neurologic: moves all extremities and awake Psychiatric: Orientation: alert, oriented to person and cooperative Results & Data Results & Data ([facility]) Vital Signs (Past 12 Hours) Vital Signs Temp Pulse Pulse Resp BP Pulse Ox 08/08/21 11:36 36.5 C 77 16 104/61 98 08/08/21 08:14 36.5 C 79 18 107/50 L 95 08/08/21 04:45 36.8 C 84 18 112/65 98 08/08/21 01:34 88 08/08/21 00:45 36.8 C 80 18 102/59 L 97 PG Care Time/CCT Total # of Minutes Spent Total Time Spent with Patient: Total time spent is greater than 50% in coordination of care (as documented) at patient's floor/unit and/or counseling patient: Coding Level of Care Code 82183 Subseq Hosp Care Lvl 3 Diagnoses Metastatic adenocarcinoma C79.9 Empyema lung J86.9 COPD (chronic obstructive pulmonary disease) J44.9 Cellulitis L03.90 Essential (primary) hypertension I10 Hyperlipidemia E78.5 BPH loc w urin obs/LUTS N40.1 Glaucoma H40.9
[2021-08-08] MEDS: TRAVOPROST Z 0.004% OPH SOLN 2.5 ML BTL OP SCH (21:51)
[2021-08-09] MEDS: DORNASE ALFA 5 ML in SYRINGE 25 ML IPL SCH ×2 (02:24→14:00)
[2021-08-09] MEDS: AMPICILLIN/SULBACTAM SOD 3,000 MG in 0.9 % SODIUM CHLORIDE 100 ML IV SCH ×4 (02:28→21:56)
[2021-08-09 07:22] LABS: Hemoglobin 12.3 g/dL (14.0-18.0); Mean Corpuscular Hemoglobin 30.6 pg (25-34); Mean Corpuscular Hgb Conc 32.4 g/dL (32-36); Mean Corpuscular Volume 94.5 fL (80-100); Platelet Count 485 K/uL (130-400); RDW Coefficient of Variation 14.4 % (11.5-14.5); RDW Standard Deviation 49.5 fL (36.4-46.3); Red Blood Count 4.02 M/uL (4.7-6.1); White Blood Count 14.88 K/uL (4.8-10.8)
[2021-08-09 07:48] LABS: BUN Creatinine Ratio 26.3 (10-20); Calcium 8.3 mg/dl (8.5-10.1); Creatinine Clr Calc Pharmacy 53.5 ml/min; Est GFR (African American) 93.8 ml/min; Est GFR (Non-African American) 80.9 ml/min; Magnesium 1.6 mg/dl (1.7-2.4); Potassium 3.8 mmol/L (3.5-5.1)
[2021-08-09] MEDS: TIMOLOL MALEATE 0.5% OP SOLN 5 ML BTL OP SCH ×2 (09:13→21:54)
[2021-08-09] MEDS: UMECLIDINIUM/VILANTEROL 62.5/25MCG 7 PUFFS/INHALER INH SCH (09:13)
[2021-08-09] MEDS: TAMSULOSIN HCL 0.4 MG CAP PO SCH (09:15)
[2021-08-09] MEDS: PRAVASTATIN SOD 20 MG TAB PO SCH ×2 (09:15→18:08)
[2021-08-09] MEDS: ALTEPLASE, RECOMBINANT 10 MG in SYRINGE 50 ML IPL SCH ×2 (09:19→21:47)
--- NOTE | 2021-08-09 09:39 | XRay Report ---
XR chest 1V portable CLINICAL HISTORY: Chest tube ? MIST 2 protocol COMPARISON STUDY: Chest CT August 07, 2021. Chest radiograph August 08, 2021. FINDINGS: Right basilar pleural catheter remains in place. There is an adjacent pocket of pleural gas and measures 7.3 x 7 cm. This was shown on prior exam. A small residual right pleural effusion is no sheldon. Extensive right mid and lower lung airspace opacity is noted. Right lung aeration has improved. Right lung volume loss is again noted. There is no left pneumothorax. No evidence for pulmonary edema . Dense right midlung opacity has slightly improved. IMPRESSION: 1. Right basilar pleural catheter in place. Adjacent pleural gas, similar to prior exam with a small residual right pleural effusion. 2. Extensive right mid and lower lung airspace opacity, mildly improved. ACT 112: Negative or not required by law. Electronically signed by: Quinn Blanca M.D. 08/09/2021 9:37 AM
--- NOTE | 2021-08-09 10:11 | Pulmonology Progress Note ---
Date of Service August 09, 2021 Assessment & Plan (1) Empyema lung: (2) Cellulitis: (3) Malignant pleural effusion: (4) Metastatic adenocarcinoma: Plan: Attending: Dr. 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 Malignant pleural effusion. Pleurx catheter removed secondary to cellulitis and empyema. Patient now with right-sided pigtail catheter and undergoing MIST 2 protocol. COPD with FEV1 of 27% of predicted and moderate decrease in DLCO which corrects for VA. Recommendations: 1. Empyema: * Recurrent right-sided malignant pleural effusion status post Pleurx catheter * Pleurx catheter removed 08/05/2021 secondary to cellulitis. Laboratory findings suggest MSSA * Patient started amoxicillin and doxycycline on 08/05/2021 for total of 14 days * Presented back to hospital on 08/07/2021 and found to have recurrent loculated effusion * 14 [place] pigtail catheter placed 08/07/2021 * MIST 2 protocol initialized -treatment #3 this morning * Chest x-ray this morning shows improvement with only trace pleural effusion. * Blood cultures x2 are negative for bacteremia 2. COPD: * GOLD class IV * History of pipe tobacco smoking for approximately 5 years. Quit smoking 50 years ago * Most recent pulmonary function testing on 06/01/2021 shows severe obstruction with FEV1 of 27% of predicted and moderate decrease in DLCO at 48% with correction for VA * Maintain SaO2 between 88 and 92% * Continue Anoro Ellipta while inpatient. On discharge, continue patient on home Spiolto (LAMA/LABA) 3. Metastatic adenocarcinoma: * Stage IV. [facility] * Currently undergoing treatment with Keytruda * Patient follows with Dr. Arango. Defer further management to her Thank you for including us in the care of this patient. We will continue to follow along with you. Admission and Anticipated Discharge Date Admission Date: August 07, 2021 Subjective Attending: Dr. Monreal This is an 86-year-old male that presented 05/18/2021 to the outpatient pulmonary office where he was seen by Dr. Ugalde for right-sided pleural effusion. He was scheduled for thoracentesis on 05/19/2021 with YOAV Roman were 1700 cc of yellow fluid was removed. Patient then had repeat thoracentesis performed 06/03/2021 and 2100 mL of lory fluid was removed. Patient then presented for recurrent pleural effusion on the right on 06/16/2021 and a Pleurx catheter was placed by Dr. Ugalde. We received a call on 08/05/2021 the patient appeared to have cellulitis around the catheter insertion site. He was seen by Dr. Ugalde and the Pleurx catheter was removed. 250 mL of dark brown fluid was drained and sent to the lab for evaluation. Patient was placed on doxycycline and amoxicillin for total 14 days. The patient then presented to the emergency department on 08/07/2021 with increased shortness of breath and found to have a loculated effusion. He was seen by Dr. Monreal in consultation and a 14 [place] pigtail catheter was placed in the right pleural space. Patient then began MIST 2 protocol. Patient currently is an inpatient and has a Leti Pleur-evac system hooked up to the 14 [place] pigtail catheter. Currently there appears to be about 1900 cc of serosanguineous fluid in the Pleur-evac. Patient currently is getting mist 2 protocol. Prior to initiation of installation this morning, RN reports no air leak. Patient is comfortable with no pain at the insertion site. He has no pleural pain. He denies any fever. He has no shortness of breath. Patient has no other acute complaints. Review of Systems Review of Systems: A total of 10 systems was reviewed and is negative other than as listed in the HPI Physical Exam Physical Exam: GENERAL : No acute distress although he does appear somewhat confused but is easily reoriented. EYES: No icterus, gaze conjugate NOSE: No evidence of epistaxis MOUTH: No lesions or candidiasis NECK: Supple LUNGS: CTA B/L, no wheezes, rales or rhonchi FLANK: Right flank has pigtail catheter inserted at approximately the sixth intercostal rib. This appears to be secure.There is no drainage around the insertion site. No evidence of cellulitis at the insertion site. HEART: Regular, rate controlled ABDOMEN: Soft, NT, ND, BS Present EXTREMITIES: No LE edema, pedal pulses intact and equal bilaterally NEURO: A&OX3. Results & Data Results & Data ([facility]) Vital Signs (Past 12 Hours) Vital Signs Temp Pulse Pulse Resp BP BP Pulse Ox 08/09/21 08:38 36.7 C 85 18 98/54 L 92 08/09/21 03:56 36.6 C 85 18 111/54 L 93 08/08/21 23:36 80 08/08/21 23:20 36.6 C 80 18 102/59 L 94 Critical Care Results & Data Vital Signs (Past 12 Hours) Vital Signs Temp Pulse Pulse Resp BP BP Pulse Ox 08/09/21 08:38 36.7 C 85 18 98/54 L 92 08/09/21 03:56 36.6 C 85 18 111/54 L 93 08/08/21 23:36 80 08/08/21 23:20 36.6 C 80 18 102/59 L 94 Lab & Micro Results (Past 24 Hours) RBC 4.27 M/uL (4.7-6.1) L 08/10/21 WBC 14.11 K/uL (4.8-10.8) H 08/10/21 Hgb 12.8 g/dL (14.0-18.0) L 08/10/21 Hct 39.8 % (42-52) L 08/10/21 MCV 93.2 fL (80-100) 08/10/21 MCH 30.0 pg (25-34) 08/10/21 MCHC 32.2 g/dL (32-36) 08/10/21 RDW Standard Deviation 49.3 fL (36.4-46.3) H 08/10/21 RDW Coefficient of Variation 14.5 % (11.5-14.5) 08/10/21 Plt Count 485 K/uL (130-400) H 08/10/21 MPV 9.0 fL (7.4-10.4) 08/10/21 Na 139 mmol/L (136-145) 08/10/21 K 3.8 mmol/L (3.5-5.1) 08/10/21 Cl 107 mmol/L (98-107) 08/10/21 CO2 25 mmol/L (21-32) 08/10/21 Anion Gap 7 (3-11) 08/10/21 BUN 22 mg/dl (6-23) 08/10/21 Creatinine 0.77 mg/dl (0.6-1.4) 08/10/21 Estimated GFR ( Amer) 95.2 ml/min 08/10/21 Estimated GFR (Non-Af Amer) 82.2 ml/min 08/10/21 BUN/Creatinine Ratio 28.6 (10-20) H 08/10/21 Glu 77 mg/dl (70-99(Fasting)) 08/10/21 Ca 8.3 mg/dl (8.5-10.1) L 08/10/21 Mg 1.7 mg/dl (1.7-2.4) 08/10/21 05:34 08/10/21 Calcium Level 8.3 mg/dl (8.5-10.1) L 08/10/21 05:34 08/10/21 Microbiology 08/07/21 12:17 Aerobic Blood Culture - Preliminary Blood No growth in Aerobic bottle after 24 hours. Anaerobic Blood Culture - Preliminary No growth in Anaerobic bottle after 24 hours. 08/07/21 12:21 Aerobic Blood Culture - Preliminary Blood No growth in Aerobic bottle after 24 hours. Anaerobic Blood Culture - Preliminary No growth in Anaerobic bottle after 24 hours. 08/07/21 13:45 Gram Stain - Final Pleural Fluid Aerobic and Anaerobic Culture - Preliminary Pin-point growth present, reincubating. Diagnostic Findings (Past 24 Hours) Chest X-Ray 08/09/21 08:00 XR chest 1V portable CLINICAL HISTORY: Chest tube ? MIST 2 protocol COMPARISON STUDY: Chest CT August 07, 2021. Chest radiograph August 08, 2021. FINDINGS: Right basilar pleural catheter remains in place. There is an adjacent pocket of pleural gas and measures 7.3 x 7 cm. This was shown on prior exam. A small residual right pleural effusion is noted. Extensive right mid and lower lung airspace opacity is noted. Right lung aeration has improved. Right lung volume loss is again noted. There is no left pneumothorax. No evidence for pulmonary edema. Dense right midlung opacity has slightly improved. IMPRESSION: 1. Right basilar pleural catheter in place. Adjacent pleural gas, similar to prior exam with a small residual right pleural effusion. 2. Extensive right mid and lower lung airspace opacity, mildly improved. ACT 112: Negative or not required by law. Electronically signed by: Quinn Blanca M.D. 08/09/2021 9:37 AM I & O Totals 24 Hours 08/08/21 08/09/21 08/10/21 06:59 06:59 06:59 Intake Total 1775.000 / 1775.000 652 / 652 Output Total 2301 / 2301 1780 / 1780 50 / 50 Balance -526.000 / -526.000 -1128 / -1128 -50 / -50 Cumulative 08/07/21 10:01 thru 08/09/21 07:27 Intake Total 2427.000 Output Total 4131 Balance -1704.000 RT Ventilator Mngmt (Last Documented) Ventilator Ordered Settings Respiratory Rate 18 08/09/21 08:38 Ventilator - PT Measurements Respiratory Rate 18 PG Care Time/CCT Total # of Minutes Spent Total Time Spent with Patient: Total time spent is greater than 50% in coordination of care (as documented) at patient's floor/unit and/or counseling patient:20 minutes face to face Coding Level of Care Code 40351 Subseq Hosp Care Lvl 2 Diagnoses Empyema lung J86.9 Cellulitis L03.90 Malignant pleural effusion J91.0 Metastatic adenocarcinoma C79.9
--- NOTE | 2021-08-09 11:42 | Hospitalist Progress Note ---
Date of Service August 09, 2021 Assessment & Plan (1) Empyema lung: Plan: Had Pleurx catheter placed on 06/16 for malignant pleural effusion, however had to be removed on 08/05 due to developing cellulitis at catheter site. Patient placed on p.o. Augmentin and doxycycline at that time. - Pleural fluid from 08/05 growing MSSA. - Continue Unasyn per pulm - Undergoing MIST2 protocol - Presently on day #3. Unclear from pulmonary note how long it will be. Will touch base today, but likely 2-3 more days. (2) Metastatic adenocarcinoma: Plan: Had Pleur-X for recurrent malignant effusions. Empyema seen on CTA here. - Pulmonary following for empyema. - Pembrolizumab every 3 weeks, was due for it this past , 08/05, however could not undergo due to cellulitis of Pleurx catheter site. Due for this upcoming , 08/12. (3) BPH loc w urin obs/LUTS: Plan: Had urinary retention overnight of 08/07 and required Cruz. Had some clots that were flushed out, unclear if this was from trauma from catheter insertion, alteplase from MIST protocol, or combination. - Continue Flomax 0.4 mg daily. - Urology following - Keep Cruz for another 24 hours or so. No blood in last 24 hours. (4) COPD (chronic obstructive pulmonary disease): Plan: - Stiolto inhaler daily, continue this or for hospital formulary equivalent. - Albuterol as needed. (5) Cellulitis: Plan: Site of Pleurx catheter, reason for removal 2 days ago. Was on doxycycline Augmentin p.o., holding these in favor of IV ABX as above. - Improving. (6) Essential (primary) hypertension: Plan: BP today is 100/55. - Hold amlodipine/benazepril - Continue to monitor. (7) Hyperlipidemia: Plan: - Continue pravastatin 20 mg daily. (8) Glaucoma: Plan: - Continue eyedrops. Plan: SCDs for DVT ppx. - Hold Lovenox for MIST2 protocol and hematuria. Admission and Anticipated Discharge Date Admission Date: August 07, 2021 Subjective Doing well today. No pain from catheter site. Reports no fevers/chills, chest pain, shortness of breath, abdominal pain, nausea, or vomiting. Physical Exam Constitutional: WD/WN, vitals as above Eyes: EOM intact bilaterally; no conjunctival abnormality ENMT: external ear and nose normal, oropharynx normal Neck: trachea midline, no thyromegaly normal visual inspection Respiratory: normal respiratory effort, lungs clear to auscultation no respiratory distress Cardiovascular: RRR, no murmur, no edema Chest (Breasts): Chest: normal inspection of chest Gastrointestinal (Abdomen): Inspection/Auscultation: abdomen normal to inspection; abdomen not distended Musculoskeletal: no cyanosis or clubbing, extremities motor strength 5/5 Skin: no rashes, warm and dry Neurologic: moves all extremities and awake Psychiatric: Orientation: alert, oriented to person and cooperative Results & Data Results & Data ([facility]) Vital Signs (Past 12 Hours) Vital Signs Temp Pulse Resp BP BP Pulse Ox 08/09/21 08:38 36.7 C 85 18 98/54 L 92 08/09/21 03:56 36.6 C 85 18 111/54 L 93 PG Care Time/CCT Total # of Minutes Spent Total Time Spent with Patient: Total time spent is greater than 50% in coordination of care (as documented) at patient's floor/unit and/or counseling patient: Coding Level of Care Code 10811 Subseq Hosp Care Lvl 2 Diagnoses Empyema lung J86.9 Metastatic adenocarcinoma C79.9 BPH loc w urin obs/LUTS N40.1 COPD (chronic obstructive pulmonary disease) J44.9 Cellulitis L03.90 Essential (primary) hypertension I10 Hyperlipidemia E78.5 Glaucoma H40.9
--- NOTE | 2021-08-09 12:41 | Urology Progress Note ---
Date of Service August 09, 2021 Assessment & Plan (1) Urinary retention: (2) Hematuria: Plan: 86yo M with a PMHx of stage IV lung cancer admitted secondary to worsening shortness of breath and cough with CT imaging concerning for developing empyema in his pleural space on the right side. Pt had a right pigtail catheter placed and the mist 2 protocol was initiated. Since admission patient was noted to have urinary retention and he required multiple straight catheterizations. He continued to have urinary retention, was passing some blood clots, and straining to urinate therefore requiring Cruz catheter placement. - Reviewed plan of care with Dr. Salazar. - Urine has now cleared. - Tolerating catheter with minimal bother. - Afebrile, Labs reviewed - Wbc 14.88, Creatinine 0.80, Hemoglobin 12.3. - Urinalysis on admission with 3+blood, otherwise unremarkable. - Given his urine remains clear, can attempt voiding trial prior to his discharge. - Unclear etiology of bleeding/retention, possibly exacerbated by medicines administered with the mist 2 protocol and/or catheter trauma. - Will need to complete full hematuria work-up with imaging and cystoscopy as an outpatient after acute issues have resolved. - Discussed with patient, he is agreeable. - Urology will sign-off. Thank you for allowing us to participate in the acute care of Mr. Mulligan. Please reconsult us with additional questions, concerns or changes in patient status. Admission and Anticipated Discharge Date Admission Date: August 07, 2021 Subjective Pt examined at bedside. Awake, resting in bed on arrival. No acute distress. Subjectively feeling well. Cruz catheter intact, draining clear yellow urine. Denies any pain or discomfort at present. Review of Systems Constitutional: as per Subjective / HPI Genitourinary: + as per Subjective / HPI Physical Exam Constitutional: no acute distress Respiratory: no respiratory distress and no labored breathing Gastrointestinal (Abdomen): Inspection/Auscultation: abdomen normal to inspection Skin: Warm and dry Neurologic: awake Psychiatric: Orientation: alert, oriented x 3 and cooperative Genitourinary: Cruz catheter intact, draining clear yellow urine Results & Data ([facility]) Vital Signs (Past 12 Hours) Vital Signs Temp Pulse Pulse Resp BP BP Pulse Ox 08/09/21 08:38 36.7 C 85 18 98/54 L 92 08/09/21 03:56 36.6 C 85 18 111/54 L 93 08/08/21 23:36 80 08/08/21 23:20 36.6 C 80 18 102/59 L 94 PG Care Time/CCT Total # of Minutes Spent Total Time Spent with Patient: Total time spent is greater than 50% in coordination of care (as documented) at patient's floor/unit and/or counseling patient: Coding Level of Care Code 99496 Subseq Hosp Care Lvl 2 Diagnoses Urinary retention R33.9 Hematuria R31.9
[2021-08-09] MEDS: TRAVOPROST Z 0.004% OPH SOLN 2.5 ML BTL OP SCH (21:53)
[2021-08-10] MEDS: DORNASE ALFA 5 ML in SYRINGE 25 ML IPL SCH (02:22)
[2021-08-10] MEDS: AMPICILLIN/SULBACTAM SOD 3,000 MG in 0.9 % SODIUM CHLORIDE 100 ML IV SCH ×4 (03:28→22:01)
[2021-08-10 05:55] LABS: Hematocrit (blood only) 39.8 % (42-52); Hemoglobin 12.8 g/dL (14.0-18.0); Mean Corpuscular Hgb Conc 32.2 g/dL (32-36); Mean Corpuscular Volume 93.2 fL (80-100); Platelet Count 485 K/uL (130-400); RDW Coefficient of Variation 14.5 % (11.5-14.5); RDW Standard Deviation 49.3 fL (36.4-46.3); Red Blood Count 4.27 M/uL (4.7-6.1); White Blood Count 14.11 K/uL (4.8-10.8)
[2021-08-10 06:21] LABS: BUN Creatinine Ratio 28.6 (10-20); Calcium 8.3 mg/dl (8.5-10.1); Est GFR (African American) 95.2 ml/min; Est GFR (Non-African American) 82.2 ml/min; Magnesium 1.7 mg/dl (1.7-2.4); Potassium 3.8 mmol/L (3.5-5.1)
[2021-08-10] MEDS: TAMSULOSIN HCL 0.4 MG CAP PO SCH (08:08)
[2021-08-10] MEDS: TIMOLOL MALEATE 0.5% OP SOLN 5 ML BTL OP SCH ×2 (08:08→20:16)
[2021-08-10] MEDS: PRAVASTATIN SOD 20 MG TAB PO SCH ×2 (08:08→17:29)
[2021-08-10] MEDS: UMECLIDINIUM/VILANTEROL 62.5/25MCG 7 PUFFS/INHALER INH SCH (08:09)
--- NOTE | 2021-08-10 09:39 | CT Scan Report ---
CT OF THE CHEST WITHOUT IV CONTRAST CLINICAL HISTORY: Follow-up empyema. Lung cancer. COMPARISON STUDY: Chest CT August 07, 2021. Chest radiograph August 10, 2021 at 6:[address] DOSE: 224.72 mGy.cm TECHNIQUE: Axial images of the chest were obtained without IV contrast. Images were reviewed in the axial, sagittal, and coronal planes. IV contrast was not administered for this examination. Automat ed exposure control was utilized for the study. A dose lowering technique was utilized adhering to t he principles of ALARA. FINDINGS: Right basilar pleural catheter is well positioned. The empyema shown on chest CT of June 07, 2021 has markedly decreased in size. There is a moderate size residual right hydropneumothorax. T he right pleural fluid is more simple appearing than on prior CT. There is persistent right pleural t hickening. Extensive right lower lobe volume loss is again noted. Emphysema is present. A 1.4 cm spic ulated right upper lobe nodule on image 80 of 346 is again noted. A small left pleural effusion has d eveloped. Mild dilatation of the ascending aorta is unchanged. There is moderate coronary artery calc ification. There is no pericardial effusion. There is no left-sided pneumothorax. No suspicious lesio n within the visualized bony thorax is present. There is no thoracic lymphadenopathy. IMPRESSION: 1. Well-positioned right pleural catheter. Significant interval decrease in size of the right-sided e mpyema since chest CT of August 07, 2021. Residual moderate right hydropneumothorax. Right pleural fluid more similar-appearing than on prior CT. 2. Persistent right pleural thickening which could be infectious or neoplastic. 3. Persistent extensive right lower lobe volume loss. 4. Interval development of a small left pleural effusion. 5. Redemonstration of a suspicious 1.4 cm spiculated right upper lobe nodule. ACT 112: Negative or not required by law. Electronically signed by: Quinn Blanca M.D. 08/10/2021 9:37 AM
--- NOTE | 2021-08-10 10:05 | XRay Report ---
SINGLE VIEW CHEST CLINICAL HISTORY: Chest tube. FINDINGS: An AP, portable, upright chest radiograph is compared to study dated 08/09/2021 and correlat ed with chest CT dated 08/07/2021. The cardiomediastinal silhouette is top normal for projection notin g atherosclerotic calcification of the thoracic aorta. Emphysema and chronic interstitial thickening is similar to previous with volume loss in the right lung. A chest tube is again seen at the right don ng base. Residual hydropneumothorax at the right lung base is similar to yesterday. Loculated fluid i s seen tracking laterally along the right chest wall. Airspace opacities in the right midlung persist . Trace pleural effusion is suggested on the left. No left-sided pneumothorax is seen. The skeletal s tructures are osteopenic. The bony thorax is grossly intact. IMPRESSION: 1. A right-sided chest tube is unchanged in position. Residual right-sided hydropneumothorax is uncha nged from yesterday. 2. Airspace opacities in the right midlung is similar to previous. 3. Trace left pleural effusion. 4. Emphysema. ACT 112: Negative or not required by law. Electronically signed by: Judd Cleary M.D. 08/10/2021 10:04 AM
--- NOTE | 2021-08-10 10:09 | Pulmonology Progress Note ---
Date of Service August 10, 2021 Assessment & Plan (1) Empyema lung: (2) Cellulitis: (3) Malignant pleural effusion: (4) Metastatic adenocarcinoma: Plan: Attending: Dr. 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 Malignant pleural effusion. Pleurx catheter removed secondary to cellulitis and empyema. Patient now with right-sided pigtail catheter and undergoing MIST 2 protocol. COPD with FEV1 of 27% of predicted and moderate decrease in DLCO which corrects for VA. Recommendations: 1. Empyema: * Recurrent right-sided malignant pleural effusion status post Pleurx catheter * Pleurx catheter removed 08/05/2021 secondary to cellulitis. Laboratory findings suggest MSSA * Patient started amoxicillin and doxycycline on 08/05/2021 for total of 14 days * Presented back to hospital on 08/07/2021 and found to have recurrent loculated effusion * 14 Armenian pigtail catheter placed 08/07/2021 * Completed MIST2 protocol * CT chest 08/10/2021 demonstrates significant improvement in the right pleural effusion. There does appear to be a persistent hydropneumothorax. Patient may have possible lung entrapment given the malignancy. Increased suction to -40 cm H2O. We will repeat a chest x-ray tomorrow. Continue with Unasyn for the time being. 2. COPD: * GOLD class IV * History of pipe tobacco smoking for approximately 5 years. Quit smoking 50 years ago * Most recent pulmonary function testing on 06/01/2021 shows severe obstruction with FEV1 of 27% of predicted and moderate decrease in DLCO at 48% with correction for VA * Maintain SaO2 between 88 and 92% * Continue Anoro Ellipta while inpatient. On discharge, continue patient on home Stiolto (LAMA/LABA) 3. Metastatic adenocarcinoma: * Stage IV. [facility] * Currently undergoing treatment with Keytruda * Patient follows with Dr. Arango. Defer further management to her Thank you for including us in the care of this patient. We will continue to follow along with you. Admission and Anticipated Discharge Date Admission Date: August 07, 2021 Subjective Patient doing very well. Denies any dyspnea. Hiccups significantly improved. No chest pain. Patient has drained approximately 2.8 L since insertion of the chest tube. Review of Systems Review of Systems: All systems reviewed & are unremarkable except as noted in HPI & below Physical Exam Physical Exam: GENERAL : No acute distress although he does appear somewhat confused but is easily reoriented. EYES: No icterus, gaze conjugate NOSE: No evidence of epistaxis MOUTH: No lesions or candidiasis NECK: Supple LUNGS: CTA B/L, no wheezes, rales or rhonchi FLANK: Right flank has pigtail catheter inserted at approximately the sixth intercostal rib. This appears to be secure.There is no drainage around the insertion site. No evidence of cellulitis at the insertion site. HEART: Regular, rate controlled ABDOMEN: Soft, NT, ND, BS Present EXTREMITIES: No LE edema, pedal pulses intact and equal bilaterally NEURO: A&OX3. Results & Data Results & Data ([facility]) Vital Signs (Past 12 Hours) Vital Signs Temp Pulse Pulse Resp BP BP Pulse Ox 08/10/21 07:50 36.6 C 91 H 18 91/55 L 91 08/10/21 03:53 37.0 C 104 H 18 86/59 L 96 08/10/21 00:13 36.9 C 18 100/57 L 91 08/09/21 22:30 83 PG Care Time/CCT Total # of Minutes Spent Total Time Spent with Patient: Total time spent is greater than 50% in coordination of care (as documented) at patient's floor/unit and/or counseling patient: Coding Level of Care Code 92716 Subseq Hosp Care Lvl 3 Diagnoses Empyema lung J86.9 Cellulitis L03.90 Malignant pleural effusion J91.0 Metastatic adenocarcinoma C79.9
--- NOTE | 2021-08-10 11:25 | Electrocardiogram Report ---
Test Reason : Blood Pressure : / mmHG Vent. Rate : 096 BPM Atrial Rate : 098 BPM P-R Int : 000 ms QRS Dur : 066 ms QT Int : 290 ms P-R-T Axes : 000 025 061 degrees QTc Int : 366 ms Atrial fibrillation Abnormal ECG When compared with ECG of 07-AUG-2021 10:28, Atrial fibrillation has replaced Sinus rhythm Confirmed by Naseem Cleveland ([id number]) on 08/10/2021 11:25:01 AM Referred By: REFERRED SELF Confirmed By:Willy Cleveland
[2021-08-10] MEDS: ENOXAPARIN INJ 40 MG/0.4 ML SYR SQ SCH (12:04)
--- NOTE | 2021-08-10 13:35 | Hospitalist Progress Note ---
Date of Service August 10, 2021 Assessment & Plan (1) Empyema lung: Plan: Had Pleurx catheter placed on 06/16 for malignant pleural effusion, however had to be removed on 08/05 due to developing cellulitis at catheter site. Patient placed on p.o. Augmentin and doxycycline at that time. - Pleural fluid from 08/05 growing MSSA. - Finished MIST2 protocol - Still with significant hydrothorax on CT chest on 08/10. Increased suction on pigtail. - Continue Unasyn per pulm (2) Atrial fibrillation: Plan: Had approx. 5 hours of afib/flutter on 08/10 in the [employer] experience [employer]. Rates were stable ~100 bpm. None since then. - Will start low-dose beta-bacilio in case he returns into afib - Hold anticoagulation for now in setting pigtail cath and prior hematuria - Echo ordered (3) Metastatic adenocarcinoma: Plan: Had Pleur-X for recurrent malignant effusions. Empyema seen on CTA here. - Pulmonary following for empyema. - Pembrolizumab every 3 weeks, was due for it this past , 08/05, however could not undergo due to cellulitis of Pleurx catheter site. Due for this upcoming , 08/12. (4) BPH loc w urin obs/LUTS: Plan: Had urinary retention overnight of 08/07 and required Cruz. Had some clots that were flushed out, unclear if this was from trauma from catheter insertion, alteplase from MIST protocol, or combination. - Continue Flomax 0.4 mg daily. - Urology following - No blood in last 24 hours. Will pull the Cruz per patient's request. May need it back if he retains again. (5) COPD (chronic obstructive pulmonary disease): Plan: - Stiolto inhaler daily, continue this or for hospital formulary equivalent. - Albuterol as needed. (6) Cellulitis: Plan: Site of Pleurx catheter, reason for removal 2 days ago. Was on doxycycline Augmentin p.o., holding these in favor of IV ABX as above. - Improving. (7) Essential (primary) hypertension: Plan: BP today is 110/55. - Hold amlodipine/benazepril - Continue to monitor. (8) Hyperlipidemia: Plan: - Continue pravastatin 20 mg daily. (9) Glaucoma: Plan: - Continue eyedrops. Plan: SCDs for DVT ppx. - Hold Lovenox for MIST2 protocol and hematuria. Admission and Anticipated Discharge Date Admission Date: August 07, 2021 Subjective Doing well. No pain. Breathing comfortably. Reports no fevers/chills, chest pain, abdominal pain, nausea, or vomiting. Physical Exam Constitutional: WD/WN, vitals as above Eyes: EOM intact bilaterally; no conjunctival abnormality ENMT: external ear and nose normal, oropharynx normal Neck: trachea midline, no thyromegaly normal visual inspection Respiratory: normal respiratory effort, lungs clear to auscultation no respiratory distress Cardiovascular: RRR, no murmur, no edema Chest (Breasts): Chest: normal inspection of chest Gastrointestinal (Abdomen): Inspection/Auscultation: abdomen normal to inspection; abdomen not distended Musculoskeletal: no cyanosis or clubbing, extremities motor strength 5/5 Skin: no rashes, warm and dry Neurologic: moves all extremities and awake Psychiatric: Orientation: alert, oriented to person and cooperative Results & Data Results & Data ([facility]) Vital Signs (Past 12 Hours) Vital Signs Temp Pulse Pulse Resp BP BP Pulse Ox 08/10/21 12:03 08/10/21 11:44 36.6 C 89 18 110/57 L 94 08/10/21 08:00 99 H 08/10/21 07:50 36.6 C 91 H 18 91/55 L 91 08/10/21 03:53 37.0 C 104 H 18 86/59 L 96 Pulse Ox 08/10/21 12:03 95 08/10/21 11:44 08/10/21 08:00 08/10/21 07:50 08/10/21 03:53 PG Care Time/CCT Total # of Minutes Spent Total Time Spent with Patient: Total time spent is greater than 50% in coordination of care (as documented) at patient's floor/unit and/or counseling patient: Coding Level of Care Code 57018 Subseq Hosp Care Lvl 3 Diagnoses Empyema lung J86.9 Metastatic adenocarcinoma C79.9 BPH loc w urin obs/LUTS N40.1 COPD (chronic obstructive pulmonary disease) J44.9 Cellulitis L03.90 Essential (primary) hypertension I10 Hyperlipidemia E78.5 Glaucoma H40.9 Atrial fibrillation I48.91
--- NOTE | 2021-08-10 19:17 | XCELERA ---
[id number]
[2021-08-10] MEDS: TRAVOPROST Z 0.004% OPH SOLN 2.5 ML BTL OP SCH (20:17)
[2021-08-10] MEDS: METOPROLOL SUCC 25MG EXT REL TAB PO SCH (20:19)
[2021-08-11] MEDS: AMPICILLIN/SULBACTAM SOD 3,000 MG in 0.9 % SODIUM CHLORIDE 100 ML IV SCH ×4 (04:31→21:17)
[2021-08-11 06:56] LABS: Hematocrit (blood only) 37.6 % (42-52); Mean Corpuscular Hemoglobin 30.2 pg (25-34); Mean Corpuscular Hgb Conc 31.9 g/dL (32-36); Mean Corpuscular Volume 94.5 fL (80-100); Mean Platelet Volume 8.9 fL (7.4-10.4); Platelet Count 471 K/uL (130-400); RDW Coefficient of Variation 14.1 % (11.5-14.5); RDW Standard Deviation 48.8 fL (36.4-46.3); Red Blood Count 3.98 M/uL (4.7-6.1); White Blood Count 10.99 K/uL (4.8-10.8)
[2021-08-11 07:14] LABS: BUN Creatinine Ratio 32.5 (10-20); Calcium 8.2 mg/dl (8.5-10.1); Creatinine Clr Calc Pharmacy 54.8 ml/min; Est GFR (African American) 93.8 ml/min; Est GFR (Non-African American) 80.9 ml/min; Magnesium 1.7 mg/dl (1.7-2.4); Potassium 3.7 mmol/L (3.5-5.1)
--- NOTE | 2021-08-11 08:37 | XRay Report ---
XR chest 1V portable CLINICAL HISTORY: follow up chest tube drainage. Right-sided hydropneumothorax. COMPARISON STUDY: 08/10/2021 TECHNIQUE: 1 view of the chest FINDINGS: Single frontal view of the chest demonstrates the cardiomediastinal silhouette to be within normal li mits. Compared to previous examination, chest tube is again seen in the right lung base with stable h ydropneumothorax present. There is atelectasis of the right lower lobe above this finding. The left h emithorax remains clear. There is no evidence for left pleural effusion. There is no evidence for vas cular congestion. There is no acute osseous pathology. IMPRESSION: 1. Compared to previous examination, there is no significant interval change with right-sided chest t ube and hydropneumothorax again seen in the right lung base. Right basilar atelectasis also again see n. ACT 112: Negative or not required by law. Electronically signed by: Michael Aguila M.D. 08/11/2021 8:35 AM
[2021-08-11] MEDS ORDERED: MAGNESIUM HYDROXIDE SUSP 30 ML UDC PO PRN (09:30)
[2021-08-11] MEDS: TIMOLOL MALEATE 0.5% OP SOLN 5 ML BTL OP SCH ×2 (10:18→21:18)
[2021-08-11] MEDS: TAMSULOSIN HCL 0.4 MG CAP PO SCH (10:19)
[2021-08-11] MEDS: UMECLIDINIUM/VILANTEROL 62.5/25MCG 7 PUFFS/INHALER INH SCH (10:19)
[2021-08-11] MEDS: PRAVASTATIN SOD 20 MG TAB PO SCH ×2 (10:19→18:16)
--- NOTE | 2021-08-11 11:55 | Pulmonology Progress Note ---
Date of Service August 11, 2021 Assessment & Plan (1) Empyema lung: (2) Cellulitis: (3) Malignant pleural effusion: (4) Metastatic adenocarcinoma: Plan: Attending: Dr. 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 Malignant pleural effusion. Pleurx catheter removed secondary to cellulitis and empyema. Patient now with right-sided pigtail catheter and undergoing MIST 2 protocol. COPD with FEV1 of 27% of predicted and moderate decrease in DLCO which corrects for VA. Recommendations: 1. Empyema: * Recurrent right-sided malignant pleural effusion status post Pleurx catheter * Pleurx catheter removed 08/05/2021 secondary to cellulitis. Laboratory findings suggest MSSA * Patient started amoxicillin and doxycycline on 08/05/2021 for total of 14 days * Presented back to hospital on 08/07/2021 and found to have recurrent loculated effusion * 14 [place] pigtail catheter placed 08/07/2021 * Completed MIST2 protocol * CT chest 08/10/2021 demonstrates significant improvement in the right pleural effusion. There does appear to be a persistent hydropneumothorax. Patient may have possible lung entrapment given the malignancy. Increased suction to -40 cm H2O. We will repeat a chest x-ray tomorrow. Continue with Unasyn for the time being. * Suspect that continued drainage of fluid is most likely from his cancer and not from infection. We will check glucose, pH, culture. If glucose and pH are negative tomorrow, we will plan on removing pigtail catheter and discharging patient from a pulmonary perspective. * Patient will most likely need thoracentesis next week. Unable to place new Pleurx catheter until infection is completely cleared. * Patient can most likely be discharged on amoxicillin for 4 weeks if pleural fluid labs come back negative. 2. COPD: * GOLD class IV * History of pipe tobacco smoking for approximately 5 years. Quit smoking 50 years ago * Most recent pulmonary function testing on 06/01/2021 shows severe obstruction with FEV1 of 27% of predicted and moderate decrease in DLCO at 48% with correction for VA * Maintain SaO2 between 88 and 92% * Continue Anoro Ellipta while inpatient. On discharge, continue patient on home Stiolto (LAMA/LABA) * Patient doing well on room air. No exacerbation. No complaints from patient. 3. Metastatic adenocarcinoma: * Stage IV. [facility] * Currently undergoing treatment with Keytruda * Patient follows with Dr. Arango. Defer further management to her Thank you for including us in the care of this patient. We will continue to follow along with you. Admission and Anticipated Discharge Date Admission Date: August 07, 2021 Subjective Attending: Dr. Monreal Patient seen and examined in room 209. He is still putting out greater than 400 mL/day from the pigtail catheter. He denies any chest pain, no pain at the insertion site of the pigtail catheter, no shortness of breath, no other complaints. He did question discharge plan. Fluid is most likely secondary to his cancer at this point and not empyema or infection. However, if we discharge him he will most likely need recurrent thoracentesis with later placement of Pleurx catheter. He agrees to 1 more day of monitoring and drainage. Patient has no other complaints at this time. Review of Systems Review of Systems: A total of 10 systems was reviewed and is negative other than as listed in the HPI Physical Exam Physical Exam: GENERAL : No acute distress EYES: No icterus, gaze conjugate NOSE: No evidence of epistaxis MOUTH: No lesions or candidiasis NECK: Supple LUNGS: CTA B/L, no wheezes, rales or rhonchi CHEST: Right flank evaluated at location of pigtail catheter placement. No eryt giovanna. Catheter is secure with a skater fix. Tubing is also secure HEART: Regular, rate controlled ABDOMEN: Soft, NT, ND, BS Present EXTREMITIES: No LE edema, pedal pulses intact NEURO: A&OX3 Results & Data Results & Data ([facility]) Vital Signs (Past 12 Hours) Vital Signs Temp Pulse Pulse Resp BP Pulse Ox 08/11/21 08:00 67 08/11/21 06:44 36.6 C 79 18 99/60 L 94 08/11/21 03:05 36.6 C 71 16 100/56 L 93 Critical Care Results & Data Vital Signs (Past 12 Hours) Vital Signs Temp Pulse Pulse Resp BP Pulse Ox 08/11/21 08:00 67 08/11/21 06:44 36.6 C 79 18 99/60 L 94 08/11/21 03:05 36.6 C 71 16 100/56 L 93 Lab & Micro Results (Past 24 Hours) RBC 3.98 M/uL (4.7-6.1) L 08/11/21 WBC 10.99 K/uL (4.8-10.8) H 08/11/21 Hgb 12.0 g/dL (14.0-18.0) L 08/11/21 Hct 37.6 % (42-52) L 08/11/21 MCV 94.5 fL (80-100) 08/11/21 MCH 30.2 pg (25-34) 08/11/21 MCHC 31.9 g/dL (32-36) L 08/11/21 RDW Standard Deviation 48.8 fL (36.4-46.3) H 08/11/21 RDW Coefficient of Variation 14.1 % (11.5-14.5) 08/11/21 Plt Count 471 K/uL (130-400) H 08/11/21 MPV 8.9 fL (7.4-10.4) 08/11/21 Na 139 mmol/L (136-145) 08/11/21 K 3.7 mmol/L (3.5-5.1) 08/11/21 Cl 105 mmol/L (98-107) 08/11/21 CO2 29 mmol/L (21-32) 08/11/21 Anion Gap 5 (3-11) 08/11/21 BUN 26 mg/dl (6-23) H 08/11/21 Creatinine 0.80 mg/dl (0.6-1.4) 08/11/21 Estimated GFR ( Amer) 93.8 ml/min 08/11/21 Estimated GFR (Non-Af Amer) 80.9 ml/min 08/11/21 BUN/Creatinine Ratio 32.5 (10-20) H 08/11/21 Glu 73 mg/dl (70-99(Fasting)) 08/11/21 Ca 8.2 mg/dl (8.5-10.1) L 08/11/21 Mg 1.7 mg/dl (1.7-2.4) 08/11/21 06:27 08/11/21 Calcium Level 8.2 mg/dl (8.5-10.1) L 08/11/21 06:27 08/11/21 Diagnostic Findings (Past 24 Hours) Chest X-Ray 08/11/21 07:00 XR chest 1V portable CLINICAL HISTORY: follow up chest tube drainage. Right-sided hydropneumothorax. COMPARISON STUDY: 08/10/2021 TECHNIQUE: 1 view of the chest FINDINGS: Single frontal view of the chest demonstrates the cardiomediastinal silhouette to be within normal limits. Compared to previous examination, chest tube is again seen in the right lung base with stable hydropneumothorax present. There is atelectasis of the right lower lobe above this finding. The left hemithorax remains clear. There is no evidence for left pleural effusion. There is no e vidence for vascular congestion. There is no acute osseous pathology. IMPRESSION: 1. Compared to previous examination, there is no significant interval change wit h right-sided chest tube and hydropneumothorax again seen in the right lung base. Right basilar atelectasis also again seen. ACT 112: Negative or not required by law. Electronically signed by: Michael Aguila M.D. 08/11/2021 8:35 AM I & O Totals 24 Hours 08/10/21 08/11/21 08/12/21 06:59 06:59 06:59 Intake Total 832 / 832 952 / 952 150 / 150 Output Total 1525 / 1525 845 / 845 250 / 250 Balance -693 / -693 107 / 107 -100 / -100 Cumulative 08/07/21 10:01 thru 08/11/21 10:22 Intake Total 4361.000 Output Total 6701 Balance -2340.000 RT Ventilator Mngmt (Last Documented) Ventilator Ordered Settings Respiratory Rate 18 08/11/21 06:44 Ventilator - PT Measurements Respiratory Rate 18 PG Care Time/CCT Total # of Minutes Spent Total Time Spent with Patient: Total time spent is greater than 50% in coordination of care (as documented) at patient's floor/unit and/or counseling patient: 20 minutes Coding Level of Care Code 35079 Subseq Hosp Care Lvl 2 Diagnoses Empyema lung J86.9 Cellulitis L03.90 Malignant pleural effusion J91.0 Metastatic adenocarcinoma C79.9
--- NOTE | 2021-08-11 12:46 | Hospitalist Progress Note ---
Date of Service August 11, 2021 Assessment & Plan (1) Empyema lung: Plan: Had Pleurx catheter placed on 06/16 for malignant pleural effusion, however had to be removed on 08/05 due to developing cellulitis at catheter site. Patient placed on p.o. Augmentin and doxycycline at that time. - Pleural fluid from 08/05 growing MSSA. - Finished MIST2 protocol - Still with significant hydrothorax on CT chest on 08/10. Increased suction on pigtail on 08/09. - Continue Unasyn per pulm -> Hope to pull the pigtail today or tomorrow, then could go home on 4 weeks abx. 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 Rates were stable ~100 bpm. None since then. - Started low-dose beta-bacilio in case he returns into afib - Hold anticoagulation for now in setting pigtail cath and prior hematuria - Discussed with cardiology who agree. Given no further afib/flutter seen, no need for anticoagulation. - Echo on 08/10 showed EF 55-60%, aortic valve sclerosis, mild AVR. (3) Metastatic adenocarcinoma: Plan: Had Pleur-X for recurrent malignant effusions. Empyema seen on CTA here. - Pulmonary following for empyema. - Pembrolizumab every 3 weeks, was due for it this past , 08/05, however could not undergo due to cellulitis of Pleurx catheter site. Due for this upcoming , 08/12. (4) BPH loc w urin obs/LUTS: Plan: Had urinary retention overnight of 08/07 and required Cruz. Had some clots that were flushed out, unclear if this was from trauma from catheter insertion, alteplase from MIST protocol, or combination. - Continue Flomax 0.4 mg daily. - Urology following - No blood in last 24 hours. Will pull the Cruz per patient's request. May need it back if he retains again. (5) COPD (chronic obstructive pulmonary disease): Plan: - Stiolto inhaler daily, continue this or for hospital formulary equivalent. - Albuterol as needed. (6) Cellulitis: Plan: Site of Pleurx catheter, reason for removal 2 days ago. Was on doxycycline Augmentin p.o., holding these in favor of IV ABX as above. - Improving. (7) Essential (primary) hypertension: Plan: BP today is 120/55. - Hold amlodipine/benazepril - Continue to monitor. (8) Hyperlipidemia: Plan: - Continue pravastatin 20 mg daily. (9) Glaucoma: Plan: - Continue eyedrops. CDS Queries: Moderate protein-calorie malnutrition Empyema due to indwelling pleural catheter, a complication of care Plan: SCDs for DVT ppx. - Hold Lovenox for MIST2 protocol and hematuria. Admission and Anticipated Discharge Date Admission Date: August 07, 2021 Subjective Doing well today. Still no pain. Reports no fevers/chills, chest pain, shortness of breath, abdominal pain, nausea, or vomiting. Physical Exam Constitutional: WD/WN, vitals as above Eyes: EOM intact bilaterally; no conjunctival abnormality ENMT: external ear and nose normal, oropharynx normal Neck: trachea midline, no thyromegaly normal visual inspection Respiratory: normal respiratory effort, lungs clear to auscultation no respiratory distress Cardiovascular: RRR, no murmur, no edema Chest (Breasts): Chest: normal inspection of chest Gastrointestinal (Abdomen): Inspection/Auscultation: abdomen normal to inspection; abdomen not distended Musculoskeletal: no cyanosis or clubbing, extremities motor strength 5/5 Skin: no rashes, warm and dry Neurologic: moves all extremities and awake Psychiatric: Orientation: alert, oriented to person and cooperative Results & Data Results & Data ([facility]) Vital Signs (Past 12 Hours) Vital Signs Temp Pulse Pulse Resp BP Pulse Ox 08/11/21 12:10 36.6 C 80 17 119/68 93 08/11/21 08:00 67 08/11/21 06:44 36.6 C 79 18 99/60 L 94 08/11/21 03:05 36.6 C 71 16 100/56 L 93 PG Care Time/CCT Total # of Minutes Spent Total Time Spent with Patient: Total time spent is greater than 50% in coordination of care (as documented) at patient's floor/unit and/or counseling patient: Coding Level of Care Code 15855 Subseq Hosp Care Lvl 2 Diagnoses Empyema lung J86.9 Atrial fibrillation I48.91 Metastatic adenocarcinoma C79.9 BPH loc w urin obs/LUTS N40.1 COPD (chronic obstructive pulmonary disease) J44.9 Cellulitis L03.90 Essential (primary) hypertension I10 Hyperlipidemia E78.5 Glaucoma H40.9
[2021-08-11] MEDS: ENOXAPARIN INJ 40 MG/0.4 ML SYR SQ SCH (12:56)
--- NOTE | 2021-08-11 14:21 | XRay Report ---
XR chest 1V portable at 10:55 AM CLINICAL HISTORY: Kinked chest tube; large output after fixing. COMPARISON STUDY: Portable chest from 08/11/2021 at 6:56 AM TECHNIQUE: 1 view of the chest FINDINGS: Single frontal view of the chest demonstrates the cardiomediastinal silhouette to be within normal li mits. Compared to the previous examination, right-sided chest tube is again seen with interval decrea se in the amount of fluid present within the hydropneumothorax at the right lung base. The amount of air is unchanged. There is again atelectasis involving the right lower lobe. The left hemithorax rosalba ins clear. There is no acute osseous pathology. IMPRESSION: 1. Interval decrease in the amount of fluid present involving the hydropneumothorax at the right lung base. ACT 112: Negative or not required by law. Electronically signed by: Michael Aguila M.D. 08/11/2021 2:19 PM
[2021-08-11 15:41] LABS: Appearance Pleural Fluid CLOUDY; Color Pleural Fluid YELLOW; RBC Pleural Fluid (A) 3000 /uL; Source Pleural Fluid RIGHT LUNG; WBC Pleural Fluid (A) 7730 /uL
[2021-08-11 15:46] LABS: Eosinophils, Fluid 0 %; Lymphocytes, Fluid 10 %; Mono,Macrophage,Mesothelial 2 %; Neutrophils, Fluid 88 %
[2021-08-11] MEDS: METOPROLOL SUCC 25MG EXT REL TAB PO SCH (21:18)
[2021-08-11] MEDS: TRAVOPROST Z 0.004% OPH SOLN 2.5 ML BTL OP SCH (21:18)
[2021-08-12] MEDS: AMPICILLIN/SULBACTAM SOD 3,000 MG in 0.9 % SODIUM CHLORIDE 100 ML IV SCH ×4 (02:02→20:33)
[2021-08-12 07:37] LABS: Hematocrit (blood only) 38.4 % (42-52); Hemoglobin 12.5 g/dL (14.0-18.0); Mean Corpuscular Hemoglobin 30.2 pg (25-34); Mean Corpuscular Hgb Conc 32.6 g/dL (32-36); Mean Corpuscular Volume 92.8 fL (80-100); Mean Platelet Volume 9.2 fL (7.4-10.4); Platelet Count 524 K/uL (130-400); RDW Coefficient of Variation 14.4 % (11.5-14.5); RDW Standard Deviation 49.3 fL (36.4-46.3); Red Blood Count 4.14 M/uL (4.7-6.1); White Blood Count 11.48 K/uL (4.8-10.8)
[2021-08-12 07:58] LABS: BUN Creatinine Ratio 30.4 (10-20); Calcium 8.2 mg/dl (8.5-10.1); Creatinine Clr Calc Pharmacy 55.5 ml/min; Est GFR (African American) 94.2 ml/min; Est GFR (Non-African American) 81.3 ml/min; Magnesium 1.8 mg/dl (1.7-2.4); Potassium 3.9 mmol/L (3.5-5.1)
[2021-08-12] MEDS: UMECLIDINIUM/VILANTEROL 62.5/25MCG 7 PUFFS/INHALER INH SCH (09:57)
[2021-08-12] MEDS: TAMSULOSIN HCL 0.4 MG CAP PO SCH (09:57)
[2021-08-12] MEDS: TIMOLOL MALEATE 0.5% OP SOLN 5 ML BTL OP SCH ×2 (09:57→20:31)
[2021-08-12] MEDS: ENOXAPARIN INJ 40 MG/0.4 ML SYR SQ SCH (10:45)
[2021-08-12] MEDS: PRAVASTATIN SOD 20 MG TAB PO SCH ×2 (11:36→18:40)
--- NOTE | 2021-08-12 11:42 | Hospitalist Progress Note ---
Date of Service August 12, 2021 Assessment & Plan (1) Empyema lung: Plan: Had Pleurx catheter placed on 06/16 for malignant pleural effusion, however had to be removed on 08/05 due to developing cellulitis at catheter site. Patient placed on p.o. Augmentin and doxycycline at that time. - Pleural fluid from 08/05 growing MSSA. - Finished MIST2 protocol - Still with significant hydrothorax on CT chest on 08/10. Increased suction on pigtail on 08/09. - Continue Unasyn per pulm -> pH of pleural effusion is 7.17, so there is still concern for empyema. Will follow cultures and retest fluid tomorrow. 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 Rates were stable ~100 bpm. None since then. - Started low-dose beta-bacilio in case he returns into afib - Hold anticoagulation for now in setting pigtail cath and prior hematuria - Discussed with cardiology who agree. Given no further afib/flutter seen, no need for anticoagulation. - Echo on 08/10 showed EF 55-60%, aortic valve sclerosis, mild AVR. (3) Metastatic adenocarcinoma: Plan: Had Pleur-X for recurrent malignant effusions. Empyema seen on CTA here. - Pulmonary following for empyema. - Pembrolizumab every 3 weeks, was due for it this past , 08/05, however could not undergo due to cellulitis of Pleurx catheter site. Due for this upcoming , 08/12. Discussed with Dr. Ordoñze who will follow. Could restart while still on abx, but not while there is still concern for active infection. (4) BPH loc w urin obs/LUTS: Plan: Had urinary retention overnight of 08/07 and required Cruz. Had some clots that were flushed out, unclear if this was from trauma from catheter insertion, alteplase from MIST protocol, or combination. - Continue Flomax 0.4 mg daily. - Urology following - Cruz pulled per patient's request. Straight cath on 08/11 for 600 mL. If he retains again, will re-insert Cruz catheter and leave it in. So far PVRs have been <200 mL. Monitoring closely. (5) COPD (chronic obstructive pulmonary disease): Plan: - Stiolto inhaler daily, continue this or for hospital formulary equivalent. - Albuterol as needed. (6) Cellulitis: Plan: Site of Pleurx catheter, reason for removal 2 days ago. Was on doxycycline Augmentin p.o., holding these in favor of IV ABX as above. - Improving. (7) Essential (primary) hypertension: Plan: BP today is 115/65. - Hold amlodipine/benazepril - Continue to monitor. (8) Hyperlipidemia: Plan: - Continue pravastatin 20 mg daily. (9) Glaucoma: Plan: - Continue eyedrops. CDS Queries: Moderate protein-calorie malnutrition Empyema due to indwelling pleural catheter, a complication of care Plan: SCDs for DVT ppx. - Hold Lovenox for MIST2 protocol and hematuria. Admission and Anticipated Discharge Date Admission Date: August 07, 2021 Subjective Doing well today. Still no pain. Reports no fevers/chills, chest pain, shortness of breath, abdominal pain, nausea, or vomiting. Physical Exam Constitutional: WD/WN, vitals as above Eyes: EOM intact bilaterally; no conjunctival abnormality ENMT: external ear and nose normal, oropharynx normal Neck: trachea midline, no thyromegaly normal visual inspection Respiratory: normal respiratory effort, lungs clear to auscultation no respiratory distress Cardiovascular: RRR, no murmur, no edema Chest (Breasts): Chest: normal inspection of chest Gastrointestinal (Abdomen): Inspection/Auscultation: abdomen normal to inspection; abdomen not distended Musculoskeletal: no cyanosis or clubbing, extremities motor strength 5/5 Skin: no rashes, warm and dry Neurologic: moves all extremities and awake Psychiatric: Orientation: alert, oriented to person and cooperative Results & Data Results & Data ([facility]) Vital Signs (Past 12 Hours) Vital Signs Temp Pulse Resp BP Pulse Ox 08/12/21 04:52 36.6 C 72 20 100/51 L 92 PG Care Time/CCT Total # of Minutes Spent Total Time Spent with Patient: Total time spent is greater than 50% in coordination of care (as documented) at patient's floor/unit and/or counseling patient: Coding Level of Care Code 48863 Subseq Hosp Care Lvl 2 Diagnoses Empyema lung J86.9 Atrial fibrillation I48.91 Metastatic adenocarcinoma C79.9 BPH loc w urin obs/LUTS N40.1 COPD (chronic obstructive pulmonary disease) J44.9 Cellulitis L03.90 Essential (primary) hypertension I10 Hyperlipidemia E78.5 Glaucoma H40.9
--- NOTE | 2021-08-12 13:22 | XRay Report ---
SINGLE VIEW CHEST CLINICAL HISTORY: Chest tube. FINDINGS: An AP, portable, upright chest radiograph is compared to study dated 08/11/2021 and correlat ed with chest CT dated 08/07/2021. The cardiomediastinal silhouette is top normal for projection notin g atherosclerotic calcification of the thoracic aorta. Emphysema and chronic interstitial thickening is similar to previous with volume loss in the right lung. A chest tube is again seen at the right don ng base. Residual hydropneumothorax at the right lung base is similar to yesterday. Airspace opacitie s in the right midlung persist. No significant pleural effusion is seen on the left. No left-sided pn eumothorax is identified. The skeletal structures are osteopenic. The bony thorax is grossly intact. IMPRESSION: 1. A right-sided chest tube is unchanged in position. Residual right-sided hydropneumothorax is uncha nged from yesterday. 2. Airspace opacities in the right midlung is similar to previous. 3. Emphysema. ACT 112: Negative or not required by law. Electronically signed by: Judd Cleary M.D. 08/12/2021 1:20 PM
[2021-08-12] MEDS: METOPROLOL SUCC 25MG EXT REL TAB PO SCH (20:31)
[2021-08-12] MEDS: TRAVOPROST Z 0.004% OPH SOLN 2.5 ML BTL OP SCH (20:31)
--- NOTE | 2021-08-12 23:58 | Pulmonology Progress Note ---
Date of Service August 12, 2021 Assessment & Plan (1) Empyema lung: (2) Cellulitis: (3) Malignant pleural effusion: (4) Metastatic adenocarcinoma: Plan: Attending: Dr. 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 Malignant pleural effusion. Pleurx catheter removed secondary to cellulitis and empyema. Patient now with right-sided pigtail catheter and undergoing MIST 2 protocol. COPD with FEV1 of 27% of predicted and moderate decrease in DLCO which corrects for VA. Recommendations: 1. Empyema: * Recurrent right-sided malignant pleural effusion status post Pleurx catheter * Pleurx catheter removed 08/05/2021 secondary to cellulitis. Laboratory findings suggest MSSA * Patient started amoxicillin and doxycycline on 08/05/2021 for total of 14 days * Presented back to hospital on 08/07/2021 and found to have recurrent loculated effusion * 14 Latvian pigtail catheter placed 08/07/2021 * Completed MIST2 protocol * CT chest 08/10/2021 demonstrates significant improvement in the right pleural effusion. There does appear to be a persistent hydropneumothorax. Patient may have possible lung entrapment given the malignancy. Increased suction to -40 cm H2O. We will repeat a chest x-ray tomorrow. Continue with Unasyn for the time being. * Patient continues to drain 300 to 400 cc daily.While this may be from the patient's malignancy, pH on pleural fluid is 7.17 suggesting infectious process. Gram stain and culture shows no growth on the sample of pleural fluid sent to the lab yesterday.Suction was turned down to -20 cm of water.We will check a repeat chest x-ray in the morning. We will most likely clamp the pigtail catheter and repeat the chest x-ray later in the morning. If no change in the pleural separation, anticipate removal of chest tube and discharge home. * Patient can most likely be discharged tomorrow on amoxicillin for 4 weeks. * Will schedule follow-up appointment in [facility] next week for probable thoracentesis 2. COPD: * GOLD class IV * History of pipe tobacco smoking for approximately 5 years. Quit smoking 50 years ago * Most recent pulmonary function testing on 06/01/2021 shows severe obstruction with FEV1 of 27% of predicted and moderate decrease in DLCO at 48% with correction for VA * Maintain SaO2 between 88 and 92% * Continue Anoro Ellipta while inpatient. On discharge, continue patient on home Stiolto (LAMA/LABA) * Patient doing well on room air. No exacerbation. No complaints from patient. 3. Metastatic adenocarcinoma: * Stage IV. [facility] * Currently undergoing treatment with Keytruda * Patient follows with Dr. Arango. Defer further management to her Thank you for including us in the care of this patient. We will continue to follow along with you. Anticipate discharge home tomorrow with outpatient follow-up next week Admission and Anticipated Discharge Date Admission Date: August 07, 2021 Subjective Attending: Dr. Monreal Patient seen and examined at bedside.Patient continues to have drainage from his pigtail catheter. Overnight he about 300 cc of yellow fluid. Patient denies any pain at the pigtail catheter insertion site. He denies any chest pain or flank pain. He has no fever. No significant cough or sputum production. The patient has no acute complaints. Review of Systems Review of Systems: A total of 10 systems was reviewed and is negative other than as listed in the HPI Physical Exam Physical Exam: GENERAL : No acute distress EYES: No icterus, gaze conjugate NOSE: No evidence of epistaxis MOUTH: No lesions or candidiasis NECK: Supple LUNGS: CTA B/L, no wheezes, rales or rhonchi CHEST: Right flank evaluated at location of pigtail catheter placement. No erythema. Catheter is secure with a skater fix. Tubing is also secure HEART: Regular, rate controlled ABDOMEN: Soft, NT, ND, BS Present EXTREMITIES: No LE edema, pedal pulses intact NEURO: A&OX3 Results & Data Results & Data ([facility]) Vital Signs (Past 12 Hours) Vital Signs Temp Pulse Resp BP Pulse Ox 08/12/21 20:28 36.8 C 78 18 122/65 94 Critical Care Results & Data Vital Signs (Past 12 Hours) Vital Signs Temp Pulse Resp BP Pulse Ox 08/12/21 20:28 36.8 C 78 18 122/65 94 Lab & Micro Results (Past 24 Hours) RBC 4.14 M/uL (4.7-6.1) L 08/12/21 WBC 11.48 K/uL (4.8-10.8) H 08/12/21 Hgb 12.5 g/dL (14.0-18.0) L 08/12/21 Hct 38.4 % (42-52) L 08/12/21 MCV 92.8 fL (80-100) 08/12/21 MCH 30.2 pg (25-34) 08/12/21 MCHC 32.6 g/dL (32-36) 08/12/21 RDW Standard Deviation 49.3 fL (36.4-46.3) H 08/12/21 RDW Coefficient of Variation 14.4 % (11.5-14.5) 08/12/21 Plt Count 524 K/uL (130-400) H 08/12/21 MPV 9.2 fL (7.4-10.4) 08/12/21 Na 140 mmol/L (136-145) 08/12/21 K 3.9 mmol/L (3.5-5.1) 08/12/21 Cl 106 mmol/L (98-107) 08/12/21 CO2 29 mmol/L (21-32) 08/12/21 Anion Gap 5 (3-11) 08/12/21 BUN 24 mg/dl (6-23) H 08/12/21 Creatinine 0.79 mg/dl (0.6-1.4) 08/12/21 Estimated GFR ( Amer) 94.2 ml/min 08/12/21 Estimated GFR (Non-Af Amer) 81.3 ml/min 08/12/21 BUN/Creatinine Ratio 30.4 (10-20) H 08/12/21 Glu 79 mg/dl (70-99(Fasting)) 08/12/21 Ca 8.2 mg/dl (8.5-10.1) L 08/12/21 Mg 1.8 mg/dl (1.7-2.4) 08/12/21 06:33 08/12/21 Calcium Level 8.2 mg/dl (8.5-10.1) L 08/12/21 06:33 08/12/21 Microbiology 08/07/21 13:45 Gram Stain - Final Pleural Fluid Aerobic and Anaerobic Culture - Preliminary Staphylococcus aureus Prob.radha gram positive cocci 08/11/21 14:30 Gram Stain - Final Pleural Fluid Aerobic and Anaerobic Culture - Preliminary No growth to date. Diagnostic Findings (Past 24 Hours) Chest X-Ray 08/12/21 07:00 SINGLE VIEW CHEST CLINICAL HISTORY: Chest tube. FINDINGS: An AP, portable, upright chest radiograph is compared to study dated 08/11/2021 and correlated with chest CT dated 08/07/2021. The cardiomediastinal silhouette is top normal for projection noting atherosclerotic calcification of the thoracic aorta. Emphysema and chronic interstitial thickening is similar to previous with volume loss in the right lung. A chest tube is again seen at the right lung base. Residual hydropneumothorax at the right lung base is similar to yesterday. Airspace opacities in the right midlung persist. No significant pleural effusion is seen on the left. No left-sided pneumothorax is identified. The skeletal structures are osteopenic. The bony thorax is grossly intact. IMPRESSION: 1. A right-sided chest tube is unchanged in position. Residual right-sided hydropneumothorax is unchanged from yesterday. 2. Airspace opacities in the right midlung is similar to previous. 3. Emphysema. ACT 112: Negative or not required by law. Electronically signed by: Judd Cleary M.D. 08/12/2021 1:20 PM I & O Totals 24 Hours 08/11/21 08/12/21 08/13/21 06:59 06:59 06:59 Intake Total 952 / 952 782 / 782 324 / 324 Output Total 845 / 845 1476 / 1476 945 / 945 Balance 107 / 107 -694 / -694 -621 / -621 Cumulative 08/07/21 10:01 thru 08/12/21 21:10 Intake Total 5317.000 Output Total 8872 Balance -3555.000 RT Ventilator Mngmt (Last Documented) Ventilator Ordered Settings Respiratory Rate 18 08/12/21 20:28 Ventilator - PT Measurements Respiratory Rate 18 PG Care Time/CCT Total # of Minutes Spent Total Time Spent with Patient: Total time spent is greater than 50% in coordination of care (as documented) at patient's floor/unit and/or counseling patient:25Minutes Coding Level of Care Code 77919 Subseq Hosp Care Lvl 2 Diagnoses Empyema lung J86.9 Cellulitis L03.90 Malignant pleural effusion J91.0 Metastatic adenocarcinoma C79.9
[2021-08-13] MEDS: AMPICILLIN/SULBACTAM SOD 3,000 MG in 0.9 % SODIUM CHLORIDE 100 ML IV SCH ×3 (03:10→14:47)
[2021-08-13 06:32] LABS: Hemoglobin 11.9 g/dL (14.0-18.0); Mean Corpuscular Hemoglobin 29.8 pg (25-34); Mean Corpuscular Hgb Conc 32.2 g/dL (32-36); Mean Corpuscular Volume 92.5 fL (80-100); Mean Platelet Volume 8.8 fL (7.4-10.4); Platelet Count 433 K/uL (130-400); RDW Coefficient of Variation 14.5 % (11.5-14.5); RDW Standard Deviation 49.1 fL (36.4-46.3); White Blood Count 11.21 K/uL (4.8-10.8)
[2021-08-13 06:49] LABS: BUN Creatinine Ratio 27.5 (10-20); Creatinine Clr Calc Pharmacy 52.5 ml/min; Est GFR (African American) 93.8 ml/min; Est GFR (Non-African American) 80.9 ml/min; Magnesium 1.8 mg/dl (1.7-2.4); Potassium 3.7 mmol/L (3.5-5.1)
--- NOTE | 2021-08-13 08:35 | XRay Report ---
XR chest 1V portable CLINICAL HISTORY: Chest tube COMPARISON STUDY: Chest CT August 10, 2021. Chest radiograph August 12, 2021. FINDINGS: Right basilar pleural catheter remains in place. A right hydropneumothorax is similar to pr ior exam. Right mid and lower lung airspace opacity persists. Left lung is unremarkable. Rightward me diastinal shift is unchanged. Cardiomediastinal silhouette is stable. Appearance of the chest is unch anged. IMPRESSION: No significant change in appearance of chest. Right basilar pleural catheter in place wi th stable hydropneumothorax and right mid and lower lung airspace opacity. ACT 112: Negative or not required by law. Electronically signed by: Quinn Blanca M.D. 08/13/2021 8:34 AM
[2021-08-13] MEDS ORDERED: ERGOCALCIFEROL 50,000 UNITS 1250 MCG CAP PO SCH (09:00)
[2021-08-13] MEDS: ENOXAPARIN INJ 40 MG/0.4 ML SYR SQ SCH (09:25)
[2021-08-13] MEDS: TIMOLOL MALEATE 0.5% OP SOLN 5 ML BTL OP SCH (09:26)
[2021-08-13] MEDS: UMECLIDINIUM/VILANTEROL 62.5/25MCG 7 PUFFS/INHALER INH SCH (09:26)
[2021-08-13] MEDS: TAMSULOSIN HCL 0.4 MG CAP PO SCH (09:27)
--- NOTE | 2021-08-13 11:48 | Pulmonology Progress Note ---
Date of Service August 13, 2021 Assessment & Plan (1) Empyema lung: (2) Cellulitis: (3) Malignant pleural effusion: (4) Metastatic adenocarcinoma: Plan: Attending: Dr. 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 Malignant pleural effusion. Pleurx catheter removed secondary to cellulitis and empyema. Patient now with right-sided pigtail catheter and undergoing MIST 2 protocol. COPD with FEV1 of 27% of predicted and moderate decrease in DLCO which corrects for VA. Recommendations: 1. Empyema: * Recurrent right-sided malignant pleural effusion status post Pleurx catheter * Pleurx catheter removed 08/05/2021 secondary to cellulitis. Laboratory findings suggest MSSA * Patient started amoxicillin and doxycycline on 08/05/2021 for total of 14 days * Presented back to hospital on 08/07/2021 and found to have recurrent loculated effusion * 14 Venezuelan pigtail catheter placed 08/07/2021 * Completed MIST2 protocol * Continue with Unasyn while inpatient * Repeat pleural culture from 08/11/2021 with no growth to date * Chest tube placed to waterseal this morning at 08:00. No airleak on Leti. * Patient can most likely be discharged today on amoxicillin for 4 weeks. * Will schedule follow-up appointment in [facility] next for probable thoracentesis. This will be coordinated through the outpatient staff with [facility]. * Outpatient follow-up with Dr. Ugalde next available appointment. 2. COPD: * GOLD class IV * History of pipe tobacco smoking for approximately 5 years. Quit smoking 50 years ago * Most recent pulmonary function testing on 06/01/2021 shows severe obstruction with FEV1 of 27% of predicted and moderate decrease in DLCO at 48% with correction for VA * Maintain SaO2 between 88 and 92% * Continue Anoro Ellipta while inpatient. On discharge, continue patient on home Stiolto (LAMA/LABA) * Patient doing well on room air. No exacerbation. No complaints from patient. 3. Metastatic adenocarcinoma: * Stage IV. [facility] * Currently undergoing treatment with Keytruda * Patient follows with Dr. Arango. Defer further management to her Thank you for including us in the care of this patient. We will continue to follow along with you. Anticipate discharge home today after re[peat CXR at noon Admission and Anticipated Discharge Date Admission Date: August 07, 2021 Supervising Physician Co-Signing Physician Notes Patient seen and examined with the physician speech language pathologist assistant. Agree with the note as above. Patient with likely lung entrapment/trapped lung. Pigtail chest tube removed at bedside. High likelihood of recurrence of pleural effusion secondary to malignancy. We will hold off on a Pleurx catheter for the next 1 to 2 weeks given the empyema during this admission. Patient to follow-up with his outpatient unit clerk, Dr. Ugalde. Subjective Attending: Dr. Monreal Patient seen and examined in room 209. No shortness of breath. No pain. No fever. Oxygenation is adequate on room air. Patient has no distress. Review of Systems Review of Systems: A total of 10 systems was reviewed and is negative other than as listed in the HPI Physical Exam Physical Exam: GENERAL : No acute distress. Pleasant EYES: No icterus, gaze conjugate NOSE: No evidence of epistaxis MOUTH: No lesions or candidiasis NECK: Supple LUNGS: Some decrease in breath sounds at the right base. Otherwise clear to auscultation bilaterally. HEART: Regular, rate controlled ABDOMEN: Soft, NT, ND, BS Present EXTREMITIES: No LE edema, pedal pulses intact NEURO: A&OX3 Results & Data Results & Data ([facility]) Vital Signs (Past 12 Hours) Vital Signs Temp Pulse Pulse Pulse Resp BP Pulse Ox 08/13/21 08:15 36.8 C 77 19 109/49 L 95 08/13/21 03:13 36.6 C 73 16 117/62 92 08/13/21 00:37 36.9 C 72 16 113/58 L 93 08/13/21 00:00 70 Critical Care Results & Data Vital Signs (Past 12 Hours) Vital Signs Temp Pulse Pulse Pulse Resp BP Pulse Ox 08/13/21 08:15 36.8 C 77 19 109/49 L 95 08/13/21 03:13 36.6 C 73 16 117/62 92 08/13/21 00:37 36.9 C 72 16 113/58 L 93 08/13/21 00:00 70 Lab & Micro Results (Past 24 Hours) RBC 4.00 M/uL (4.7-6.1) L 08/13/21 WBC 11.21 K/uL (4.8-10.8) H 08/13/21 Hgb 11.9 g/dL (14.0-18.0) L 08/13/21 Hct 37.0 % (42-52) L 08/13/21 MCV 92.5 fL (80-100) 08/13/21 MCH 29.8 pg (25-34) 08/13/21 MCHC 32.2 g/dL (32-36) 08/13/21 RDW Standard Deviation 49.1 fL (36.4-46.3) H 08/13/21 RDW Coefficient of Variation 14.5 % (11.5-14.5) 08/13/21 Plt Count 433 K/uL (130-400) H 08/13/21 MPV 8.8 fL (7.4-10.4) 08/13/21 Na 139 mmol/L (136-145) 08/13/21 K 3.7 mmol/L (3.5-5.1) 08/13/21 Cl 108 mmol/L (98-107) H 08/13/21 CO2 27 mmol/L (21-32) 08/13/21 Anion Gap 4 (3-11) 08/13/21 BUN 22 mg/dl (6-23) 08/13/21 Creatinine 0.80 mg/dl (0.6-1.4) 08/13/21 Estimated GFR ( Amer) 93.8 ml/min 08/13/21 Estimated GFR (Non-Af Amer) 80.9 ml/min 08/13/21 BUN/Creatinine Ratio 27.5 (10-20) H 08/13/21 Glu 90 mg/dl (70-99(Fasting)) 08/13/21 Ca 8.0 mg/dl (8.5-10.1) L 08/13/21 Mg 1.8 mg/dl (1.7-2.4) 08/13/21 06:05 08/13/21 Calcium Level 8.0 mg/dl (8.5-10.1) L 08/13/21 06:05 08/13/21 Microbiology 08/07/21 12:17 Aerobic Blood Culture - Final Blood No growth in Aerobic bottle after 5 days. Anaerobic Blood Culture - Final No growth in Anaerobic bottle after 5 days. 08/07/21 12:21 Aerobic Blood Culture - Final Blood No growth in Aerobic bottle after 5 days. Anaerobic Blood Culture - Final No growth in Anaerobic bottle after 5 days. 08/07/21 13:45 Gram Stain - Final Pleural Fluid Aerobic and Anaerobic Culture - Preliminary Staphylococcus aureus Prob.radha gram positive cocci 08/11/21 14:30 Gram Stain - Final Pleural Fluid Aerobic and Anaerobic Culture - Preliminary No growth to date. Diagnostic Findings (Past 24 Hours) Chest X-Ray 08/12/21 07:00 SINGLE VIEW CHEST CLINICAL HISTORY: Chest tube. FINDINGS: An AP, portable, upright chest radiograph is compared to study dated 08/11/2021 and correlated with chest CT dated 08/07/2021. The cardiomediastinal silhouette is top normal for projection noting atherosclerotic calcification of the thoracic aorta. Emphysema and chronic interstitial thickening is similar to previous with volume loss in the right lung. A chest tube is again seen at the right lung base. Residual hydropneumothorax at the right lung base is similar to yesterday. Airspace opacities in the right midlung persist. No significant pleural effusion is seen on the left. No left-sided pneumothorax is identified. The skeletal structures are osteopenic. The bony thorax is grossly intact. IMPRESSION: 1. A right-sided chest tube is unchanged in position. Residual right-sided hydropneumothorax is unchanged from yesterday. 2. Airspace opacities in the right midlung is similar to previous. 3. Emphysema. ACT 112: Negative or not required by law. Electronically signed by: Judd Cleary M.D. 08/12/2021 1:20 PM Chest X-Ray 08/13/21 08:00 XR chest 1V portable CLINICAL HISTORY: Chest tube COMPARISON STUDY: Chest CT August 10, 2021. Chest radiograph August 12, 2021. FINDINGS: Right basilar pleural catheter remains in place. A right hydropneumothorax is similar to prior exam. Right mid and lower lung airspace opacity persists. Left lung is unremarkable. Rightward mediastinal shift is unchanged. Cardiomediastinal silhouette is stable. Appearance of the chest is unchanged. IMPRESSION: No significant change in appearance of chest. Right basilar pleural catheter in place with stable hydropneumothorax and right mid and lower lung airspace opacity. ACT 112: Negative or not required by law. Electronically signed by: Quinn Blanca M.D. 08/13/2021 8:34 AM I & O Totals 24 Hours 08/12/21 08/13/21 08/14/21 06:59 06:59 06:59 Intake Total 782 / 782 432 / 432 108 / 108 Output Total 1476 / 1476 1415 / 1415 Balance -694 / -694 -983 / -983 108 / 108 Cumulative 08/07/21 10:01 thru 08/13/21 09:55 Intake Total 5533.000 Output Total 9342 Balance -3809.000 RT Ventilator Mngmt (Last Documented) Ventilator Ordered Settings Respiratory Rate 19 08/13/21 08:15 Ventilator - PT Measurements Respiratory Rate 19 PG Care Time/CCT Total # of Minutes Spent Total Time Spent with Patient: Total time spent is greater than 50% in coordination of care (as documented) at patient's floor/unit and/or counseling patient: Coding Level of Care Code 73616 Subseq Hosp Care Lvl 2 Diagnoses Empyema lung J86.9 Cellulitis L03.90 Malignant pleural effusion J91.0 Metastatic adenocarcinoma C79.9
--- NOTE | 2021-08-13 12:55 | XRay Report ---
XR chest 1V portable HISTORY: follow up waterseal of chest tube COMPARISON: Chest 08/13/2021. FINDINGS: Right basilar pleural catheter remains in place. A right hydropneumothorax is similar to pr ior exam. Right mid and lower lung airspace opacity persists. Left lung is unremarkable. Rightward me diastinal shift is unchanged. Cardiomediastinal silhouette is stable. Emphysema. Overall, no signific ant change. IMPRESSION: No significant change in appearance of chest. Right basilar pleural catheter in place wi th stable hydropneumothorax and right mid and lower lung airspace opacity. ACT 112: Negative or not required by law. Electronically signed by: Jesus Enamorado M.D. 08/13/2021 12:53 PM
--- NOTE | 2021-08-13 14:25 | XRay Report ---
XR chest 1V portable HISTORY: 86 years-old Male Chest tube follow-up study in a patient with right-sided chest tube and p leural effusion COMPARISON: Chest radiograph 08/13/2021 at 12:08 PM TECHNIQUE: AP view of the chest FINDINGS: A right basilar pleural catheter is in place. Unchanged right-sided hydropneumothorax with right midl salvatore and right basilar consolidation with right lung volume loss. Emphysema. Compensatory hyperinflati on of the left lung which is generally clear. The cardiomediastinal and hilar silhouettes are unchang ed. The bones appear grossly intact. IMPRESSION: 1. Right basilar chest tube is in place with unchanged hydropneumothorax. 2. Right lung volume loss with airspace opacities appear stable. ACT 112: Negative or not required by law. The above report was generated using voice recognition software. It may contain grammatical, syntax o r spelling errors. Electronically signed by: Albert Lanier M.D. 08/13/2021 2:23 PM
--- NOTE | 2021-08-13 15:06 | Procedure Note ---
Procedure Note Date of Service August 13, 2021 Note PROCEDURE: Pigtail catheter drainage and removal DATE: 08/13/2021 TIME: 1330 PROVIDER: Judd Roman PA-C CONSENT: Not indicated NARRATIVE: Patient was admitted 08/07/2021 for shortness of breath. On 08/05/2021 patient had Pleurx catheter removed as an outpatient which was found to have cellulitis and infection. Patient started on outpatient oral antibiotics and then admitted for empyema. Patient was placed on Unasyn. Patient seen in consultation by Dr. Monreal who placed a 14 Spanish pigtail catheter in place at suction. Patient also underwent mist 2 protocol. Initial cultures on pleural fluid showed MSSA. Repeat cultures drawn on 08/11/2021 showed no growth to date. It should be noted that the pleural fluid pH remained at 7.17. PROCEDURE SUMMARY: Patient was seen at bedside in room 209. He was placed in a left lateral recumbent position and chest tube set up was inspected. He was found to have a significant kink in the tube with no passage of air or fluid. Drainage line to this area pump was removed and a Luer-Franlkyn catheter from a thoracentesis kit was placed on the hub of the pigtail catheter with a syringe pump system. Initially I got approximately 180 cc of air. I then successfully evacuated approximately 250 cc of pleural fluid followed by additional air. A postprocedural chest x- ray was completed and reviewed personally by Dr. Monreal. Right basilar chest tube remained in place with unchanged hydropneumothorax. Patient was then placed in the left lateral recumbent position again. The dressing was taken down and the area around the chest tube site was cleaned with a sterile saline pad. A Jeffry sandal suture was released with no retention of suture material in the skin. The pigtail catheter appeared to be a Cook catheter without a retention string and was removed easily as the patient blew out heavily to create positive pressure. A chlorhexidine disc was placed over the drainage tube insertion site and secured with 2 x 2 gauze pads as well as a 4 x 4 3/4 inch Tegaderm. There was good adhesion of the Tegaderm dressing to the skin. Patient was advised that he should not remove the Tegaderm for 48 to 72 hours. The patient experienced no discomfort or shortness of breath during the removal of the chest tube. Dr. Monreal and Dr. Hayden Morales were contacted after the procedure with results. The patient could be discharged home from a pulmonary perspective. He will be followed up in the outpatient setting next at noon. The patient tolerated the procedure well with no shortness of breath, no hypotension, no increase in heart rate, and no other acute symptoms. Coding
--- NOTE | 2021-08-13 16:46 | Discharge Summary ---
Date of Service August 13, 2021 Admission HPI Per Admitting Provider Mr. 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 Cultures were obtained, so far growing Staphylococcus species. Since, he has had hiccups that interrupt his sleep and make it momentarily difficult for him to breathe, however no other symptoms, he denies fever/chills, weakness, fatigue, chest pain, palpitations, cough, abdominal pain, nausea, vomiting. In ED, borderline hypotensive 102/50, otherwise VS wnl and stable. Labs signifi cant for WBC 15.27, Hgb 13.0, PLT 558, alk phos 153, albumin 2.6. COVID/RSV/Flu negative. CXR with right lung base airspace opacity is somewhat improved from prior exam and may represent atelectasis, pneumonia, and/or aspiration. Interval improvement in small to moderate right pleural effusion. Chest CTA with interval development of a fluid collection with multiple foci of air in the right pleural space with enhancing thick rim concerning for empyema. Re-demonstration of spiculated right upper lobe nodule concerning for a low density. Emphysema. Atelectasis of the right lung likely secondary to the empyema. Subcarinal and mediastinal lymphadenopathy, likely reactive. Blood cultures ordered, sent. Startes on vancomycin and zosyn in ED, will continue. Pulmonary consulted for evaluation and recommendations, performing ultrasound-guided right sided pigtail catheter placement at bedside for pleural effusion. Principal Diagnosis Empyema Discharge Exam Constitutional WD/WN, vitals as above Eyes EOM intact bilaterally; no conjunctival abnormality ENMT external ear and nose normal, oropharynx normal Neck trachea midline, no thyromegaly normal visual inspection Respiratory normal respiratory effort, lungs clear to auscultation no respiratory distress Cardiovascular RRR, no murmur, no edema Chest (Breasts) Chest: normal inspection of chest Gastrointestinal (Abdomen) Inspection/Auscultation: abdomen normal to inspection; abdomen not distended Musculoskeletal no cyanosis or clubbing, extremities motor strength 5/5 Skin no rashes, warm and dry Neurologic moves all extremities and awake Psychiatric Orientation: alert, oriented to person and cooperative Discharge Data Allergies Allergy/AdvReac Type Severity Reaction Status Date / Time HMG-CoA-R Inhibitors Allergy Unknown Unknown Uncoded 08/07/21 11:11 Consultations 08/07/21 13:01 ED Decision to Admit Stat 08/07/21 15:42 Consult Pulmonology Routine 08/08/21 07:02 Consult Urology Routine Ordered Studies 08/07/21 10:21 CT angio chest PE protocol Stat 08/07/21 12:41 US point of care ultrasound Urgent 08/10/21 08:16 CT chest diagnostic wo con Urgent Hospital Course (1) Empyema lung: Had Pleurx catheter placed on 06/16 for malignant pleural effusion, however had to be removed on 08/05 due to developing cellulitis at catheter site. Patient placed on p.o. Augmentin and doxycycline at that time. - Pleural fluid from 08/05 growing MSSA. - Finished MIST2 protocol - Still with significant hydrothorax on CT chest on 08/10. Increased suction on pigtail on 08/09. - Continue Unasyn per pulm -> Drained for another few days. Pig-tail catheter pulled on 08/13. Concern that there is some level of trapped lung. Will get another thoracentesis on per pulm. - Discharged on Augmentin x 4 weeks. (2) Atrial fibrillation: Had approx. 5 hours of afib/flutter on 08/10 in the pediatric physical therapy assistant. Rates were stable ~100 bpm. None since then. - Hold anticoagulation for now in setting pigtail cath and prior hematuria - D iscussed with cardiology who agree. Given no further afib/flutter seen, no need for anticoagulation. - Echo on 08/10 showed EF 55-60%, aortic valve sclerosis, mild AVR. -> Discharged on Toprol XL 25 mg HS. (3) Metastatic adenocarcinoma: Had Pleur-X for recurrent malignant effusions. Empyema seen on CTA here. - Pulmonary following for empyema. - Pembrolizumab every 3 weeks, was due for it this past , 08/05, however could not undergo due to cellulitis of Pleurx catheter site. Due for this upcoming August 20. Discussed with Dr. Ordoñez who will follow. Could restart while still on abx, but not while there is still concern for active infection. (4) BPH loc w urin obs/LUTS: Had urinary retention overnight of 08/07 and required Cruz. Had some clots that were flushed out, unclear if this was from trauma from catheter insertion, alteplase from MIST protocol, or combination. - Continue Flomax 0.4 mg daily. - Urology following - Had to have Cruz re-inserted prior to discharge. Will f/u with urology for voiding trial in 1-2 weeks. (5) COPD (chronic obstructive pulmonary disease): - Stiolto inhaler daily, continue this or for hospital formulary equivalent. - Albuterol as needed. (6) Cellulitis: Site of Pleurx catheter, reason for removal 2 days ago. Was on doxycycline Augmentin p.o., holding these in favor of IV ABX as above. - Improving. (7) Essential (primary) hypertension: BP today is 115/65. - Hold amlodipine/benazepril on discharge. - Discharged on metoprolol after episode of afib. (8) Hyperlipidemia: - Continue pravastatin 20 mg daily. (9) Glaucoma: - Continue eyedrops. CDS Queries: Moderate protein-calorie malnutrition Empyema due to indwelling pleural catheter, a complication of care SCDs for DVT ppx. - Hold Lovenox for MIST2 protocol and hematuria. Total Time Total Time Spent Total Time Spent (In Minutes): 45 Discharge Plan Discharge Items Patient Disposition: Home - Self-Care Reason For Visit: empyema Discharge Diagnosis: Empyema Activity: Resume your previous activity Non-emergency contact: Primary Care Provider and Oncologist Call non-emergency contact if: your symptoms worsen Follow-up/Referrals: Yoan Nickerson MD [Primary Care Provider] - 09/10/21 10:30 am Charlie Salazar DO [Physician] - (Please call Dr. Salazar's office to get a follow up in 1-2 weeks to attempt to remove the Cruz.) Vanessa Arango MD [Physician] - (Please see Dr. Arango to discuss resuming your chemotherapy.) Diet: Regular Addtl Attending Provider Instructions: Mr. Mulligan, You were admitted with an infection in the space between your lung and the inner rib cage called an "empyema." With medication in a chest tube, we helped dissolve the gunk in that area. We have used IV antibiotics while you were here, but we can transition to oral antibiotics for the next 4 weeks. We did see a temporary fast heart rate while you were here, but it has gone away. We stopped your blood pressure medication, and in its place, we started metoprolol which will help keep your heart calm. You can take this medication every evening before bedtime. For your urinary issues, we did have to use a Cruz catheter. You can keep this catheter in place on discharge and follow up with Urology as an outpatient. Pending Studies at Discharge: No Stand-Alone Forms: [facility], Smoking Cessation Medications and DC Order Prescriptions: New metoprolol succinate 25 mg Tablet Extended Release 24 Hr 25 mg PO HS Qty: 30 RF: 0 Continued pravastatin 20 mg tablet 20 mg PO DAILY Qty: 90 RF: 3 tamsulosin 0.4 mg capsule 0.4 mg PO DAILY Qty: 90 RF: 3 ergocalciferol (vitamin D2) 1,250 mcg (50,000 unit) capsule 1,250 mcg PO .COMPLEX Qty: 12 RF: 0 timolol 0.5 % drops 1 drp ophthalmic (eye) BID RF: 0 Stiolto Respimat 2.5-2.5 mcg/actuation mist 2 puff inhalation DAILY Qty: 4 RF: 5 Travatan Z 0.004 % drops 1 drops OP QPM RF: 0 Keytruda 25 mg/mL solution See Rx Instructions IV .COMPLEX RF: 0 amoxicillin-pot clavulanate 875-125 mg tablet 1 tab PO BID 14 Days Qty: 28 RF: 0 Discontinued amlodipine-benazepril [Lotrel] 5-20 mg capsule 1 cap PO DAILY Qty: 90 RF: 3 doxycycline hyclate 100 mg capsule 100 mg PO BID 14 Days Qty: 28 RF: 0 Discharge Orders: Discharge Order (Routine); Ordered 08/13/21 Ordered By: Hayden Osborn/Other Patient Handouts: ED Cruz Catheter, Care Admission Data Admit Date/Time: 08/07/21 13:13 Attending Provider: Hayden Morales Admit Provider: Richy Fermin Primary Care Provider: Yoan Nickerson Other Providers: Hayden Morales ; Charlie Salazar ; Slade Monreal ; [facility] Other Interventions: Discharge Summary Assessment (RN) Last Done: 08/13/21 15:08 Coding Level of Care Code D/C DAY MANAGEMENT >30 MINS Diagnoses Empyema lung J86.9 Atrial fibrillation I48.91 Metastatic adenocarcinoma C79.9 BPH loc w urin obs/LUTS N40.1 COPD (chronic obstructive pulmonary disease) J44.9 Cellulitis L03.90 Essential (primary) hypertension I10 Hyperlipidemia E78.5 Glaucoma H40.9
== END 2021-08-13 16:56 | disposition home or self-care (01) | DRG 919 ==
LOC: ED 10:01 → SUATTDRO 13:13 → 2E 13:13
DX: E78.5 Hyperlipidemia, unspecified; C78.2 Secondary malignant neoplasm of pleura; J86.9 Pyothorax without fistula; J43.9 Emphysema, unspecified; I48.91 Unspecified atrial fibrillation; H40.9 Unspecified glaucoma; Y84.8 Other medical procedures as the cause of abnormal reaction of the patient, or of later complication, without mention of misadventure at the time of the procedure; E44.0 Moderate protein-calorie malnutrition; T85.79XA Infection and inflammatory reaction due to other internal prosthetic devices, implants and grafts, initial encounter; I48.92 Unspecified atrial flutter; Z86.010 Personal history of colon polyps; H90.3 Sensorineural hearing loss, bilateral; L03.313 Cellulitis of chest wall; J91.0 Malignant pleural effusion; I10 Essential (primary) hypertension; N40.1 Benign prostatic hyperplasia with lower urinary tract symptoms; J98.4 Other disorders of lung; C34.11 Malignant neoplasm of upper lobe, right bronchus or lung; Z68.1 Body mass index [BMI] 19.9 or less, adult; Z87.891 Personal history of nicotine dependence

== ENCOUNTER 2021-11-14 19:43 | Inpatient (IN) ==
[2021-11-14 21:48] LABS: Basophils # (auto) 0.02 K/uL (0-0.2); Basophils % (auto) 0.1 %; Hematocrit (blood only) 49.5 % (40.1-51.0); Hemoglobin 16.2 g/dl (14.0-18.0); Immature Granulocytes # (auto) 0.11 K/uL (0.00-0.02); Immature Granulocytes % (auto) 0.5 %; Lymphocytes # (auto) 1.26 K/uL (1.2-3.4); Lymphocytes % (auto) 6.2 %; Mean Corpuscular Hemoglobin 28.7 pg (25.0-34.0); Mean Corpuscular Hgb Conc 32.7 g/dL (32.0-36.0); Mean Corpuscular Volume 87.6 fL (80.0-100.0); Mean Platelet Volume 9.4 fL (9.4-12.4); Monocytes # (auto) 0.92 K/uL (0.24-0.82); Monocytes % (auto) 4.5 %; Neutrophils # (auto) 18.11 K/uL (1.4-6.5); Neutrophils % (auto) 88.7 %; Platelet Count 365 K/uL (130-400); RDW Coefficient of Variation 16.2 % (11.5-14.5); RDW Standard Deviation 50.8 fL (36.4-46.3); Red Blood Count 5.65 M/uL (4.63-6.08); White Blood Count 20.42 K/ul (4.8-10.8)
[2021-11-14 21:59] LABS: INR 1.1 (0.9-1.1); Partial Thromboplastin Time 26.8 Seconds (21.0-31.0); Prothrombin Time 11.6 Seconds (9.0-12.0)
[2021-11-14 22:14] LABS: Alanine Aminotransferase 32 U/L (7-52); Albumin Level 4.1 gm/dl (3.4-5.0); Alkaline Phosphatase 114 U/L (34-104); Anion Gap 15 (3-11); Aspartate Aminotransferase 27 U/L (13-39); BUN Creatinine Ratio 24.8 (10-20); Blood Urea Nitrogen 53 mg/dl (6-23); Calcium 10.7 mg/dl (8.5-10.1); Carbon Dioxide 21 mmol/L (21-32); Chloride 106 mmol/L (98-107); Est GFR (African American) 31.3 ml/min; Globulin 4.1 gm/dl (2.5-4.0); Glucose 142 mg/dl (70-99(Fasting)); Magnesium 2.1 mg/dl (1.7-2.4); Potassium 4.9 mmol/L (3.5-5.1); Sodium 142 mmol/L (136-145); Total Protein 8.2 gm/dl (6.0-8.3)
[2021-11-14 22:15] LABS: Appearance Urine Cloudy (Clear); Bacteria Urine Automated 4+ (Negative); Bilirubin Urine Negative (Negative); Blood Urine 2+ (Negative); Color Urine Yellow; Epithelial Cell Urine Auto >30 /lpf (0-5); Glucose Urine UA Negative (Negative); Ketones Urine Negative (Negative); Leukocyte Esterase Urine 2+ (Negative); Nitrite Urine Negative (Negative); Specific Gravity Urine 1.016 (1.000-1.030); Urobilinogen Urine Negative (Negative); pH Urine >= 9.0 (4.5-7.5)
[2021-11-14] MEDS ORDERED: CEFEPIME 2,000 MG/20 ML VIAL IV STA (22:15)
[2021-11-14] MEDS ORDERED: SODIUM CHLORIDE 0.9% 1000ML 1,000 ML IV ONE (22:15)
--- NOTE | 2021-11-14 22:21 | Emergency Department Note ---
History of Present Illness General Chief complaint: Weakness Stated complaint: WEAKNESS, DEHYDRATED, STAGE 4 LUNG CANCER Time Seen by Provider: 11/14/21 21:50 History of Present Illness 86-year-old male presents to the ED with a chief complaint of generalized weakness, sleeping all day, not eating or drinking much all day and decreased urine output. The provides most of the history. She states that the Cruz catheter has not been draining all day today. She states that his abdomen seems a little larger than normal. He has not had any nausea, vomiting or diarrhea. No cold symptoms or shortness of breath. No abdominal pains. The patient's states that he seemed to be fine last night. His symptoms deteriorated through the day today. He does have history of lung cancer as well as bladder stones. No additional complaints at this time. Home Medications Medication Instructions Recorded Confirmed Type travoprost 0.004 % eye drops 1 drops ophthalmic (eye) QPM 12/17/18 11/14/21 History (Travatan Z) timolol 0.5 % eye drops 1 drp ophthalmic (eye) BID 05/18/20 11/14/21 History pembrolizumab 25 mg/mL intravenous See Rx Instructions IV .COMPLEX 06/25/21 11/14/21 History solution (Keytruda) tiotropium 2.5 mcg-olodaterol 2.5 2 puff inhalation DAILY #4 grams 07/02/21 11/14/21 Rx mcg/actuation mist for inhalation (Stiolto Respimat) metoprolol succinate 25 mg 25 mg PO HS #30 tabs 08/13/21 11/14/21 Rx tablet,extended release 24 hr ergocalciferol (vitamin D2) 1,250 1,250 mcg PO .COMPLEX #12 caps 08/16/21 11/14/21 Rx mcg (50,000 unit) capsule pravastatin 20 mg tablet 20 mg PO DAILY #90 tabs 08/16/21 11/14/21 Rx tamsulosin 0.4 mg capsule 0.4 mg PO DAILY #90 caps 08/31/21 11/14/21 Rx Allergies Allergy/AdvReac Type Severity Reaction Status Date / Time amoxicillin [From Augmentin] Allergy Intermediate Rash Verified 11/14/21 23:02 clavulanic acid Allergy Intermediate Rash Verified 11/14/21 23:02 [From Augmentin] Llltuuh-DVK-AsP Reductase Allergy Unknown Unknown Verified 11/14/21 22:59 Inhibitor Past Med/Surg History Medical History Actinic keratosis Acute gout Benign colon polyp BPH loc w urin obs/LUTS Carotid artery plaque Empyema lung Essential (primary) hypertension Glaucoma Hematuria Metastatic adenocarcinoma Pleural effusion on right Renal cyst, right Sensorineural hearing loss (SNHL) of both ears Tinnitus Surgical History History of prostate biopsy S/P cataract surgery Status post Mohs surgery Family History Daughter Colon cancer Mother Congestive heart failure Father Congestive heart failure Denies family history of Ovarian cancer Prostate cancer Myocardial infarction Breast cancer Social History Smoking Status: Former smoker Tobacco Type: Cigarettes Cigarettes Per Day: PIPE SMOKE FOR 5 YEARS - QUIT 50 YEARS AGO; Second Hand Exposure: No; Hx Alcohol Use: No Hx Substance Use: No Preferred Language: Burkinan Communication Ability: Effective Visual Impairment: No Limitations Hearing Ability: Normal Strip Cutter Required: No Beliefs That Will Affect Care: None marital status: Current Living Situation: Spouse current occupational status: retired Feels Safe at Home: Yes Childhood Exposure to Second-Hand Smoke: Yes Dental Care, Regularly: Yes Physical Activity Frequency: Daily Seatbelt Use: always Sunscreen Use: Yes Assistive Devices: Glasses Review of Systems A total of 10 systems reviewed and were otherwise negative Physical Exam Vital Signs Vital Signs - 24 hr 11/14/21 19:57 11/14/21 21:44 11/14/21 21:44 Temperature 36.2 C L Temperature Source Temporal Artery Scan Pulse Rate 107 H Pulse Rate [Apical] Respiratory Rate 16 Respiratory Effort / Characteristics Non-Labored Spontaneous Non-Labored Respiratory Depth Normal Blood Pressure 168/96 H Blood Pressure [Right Arm] Blood Pressure Mean 120 Blood Pressure Mean [Right Arm] Pulse Oximetry 96 Oxygen Delivery Method Room Air Room Air Sepsis Recent Fever Within 48 Hours No Sepsis New/Unexplained Change in Mental Status Yes Sepsis Action Taken by Nursing No Action Required 11/14/21 21:44 11/14/21 23:00 11/14/21 22:05 Temperature Temperature Source Pulse Rate 103 H Pulse Rate [Apical] 84 Respiratory Rate 16 14 Respiratory Effort / Characteristics Respiratory Depth Blood Pressure 149/87 H Blood Pressure [Right Arm] 139/88 Blood Pressure Mean 107 Blood Pressure Mean [Right Arm] 105 Pulse Oximetry 96 97 Oxygen Delivery Method Room Air Sepsis Recent Fever Within 48 Hours Sepsis New/Unexplained Change in Mental Status Sepsis Action Taken by Nursing 11/14/21 22:31 Temperature Temperature Source Pulse Rate 93 H Pulse Rate [Apical] Respiratory Rate 20 Respiratory Effort / Characteristics Respiratory Depth Blood Pressure 152/77 H Blood Pressure [Right Arm] Blood Pressure Mean 102 Blood Pressure Mean [Right Arm] Pulse Oximetry 98 Oxygen Delivery Method Sepsis Recent Fever Within 48 Hours Sepsis New/Unexplained Change in Mental Status Sepsis Action Taken by Nursing CONSTITUTIONAL/VITAL SIGNS: Reviewed / noted above. GENERAL: Non-toxic in appearance. Generalized weakness. INTEGUMENTARY: Warm, dry, and [place]. HEAD: Normocephalic. EYES: without scleral icterus or trauma. ENT/OROPHARYNX: clear and moist. LYMPHADENOPATHY/NECK: Is supple without lymphadenopathy or meningismus. RESPIRATORY: Clear to auscultation bilaterally. No increased work of breathing. CARDIOVASCULAR: Regular rate and rhythm. GI/ABDOMEN: Soft and nontender. Suprapubic area appears to be somewhat distended. Bladder appears to be enlarged. Indwelling Cruz catheter. Not draining. EXTREMITIES: Warm and well perfused. BACK: No CVA tenderness. NEUROLOGICAL: Intact without focal deficits. PSYCHIATRIC: normal affect. MUSCULOSKELETAL: Normally developed with good muscle tone. TRIAGE NURSING DOCUMENTATION REVIEWED. Course Administered Medications Discontinued Medications Sodium Chloride (Nss 1000ml) 1,000 mls @ 999 mls/hr IV .Q1H1M ONE Stop: 11/14/21 23:15 Last Infusion: 11/15/21 00:31 Dose: 0 mls/hr Documented By: Admin: 11/14/21 22:58 Dose: 999 mls/hr Documented By: OLIVIA Cefepime HCl (Maxipime) 2,000 mg in 20 mls @ 5 mls/min IV NOW STA; Protocol Stop: 11/14/21 22:18 Last Admin: 11/14/21 22:58 Dose: 5 mls/min Documented By: OLIVIA Medical Decision Making Differential Diagnosis Differential includes acute coronary syndrome, myocardial infarction, CVA, TIA, anemia, infection, pneumonia, UTI, pyelonephritis, poor nutrition, dehydration, electrolyte disturbance,hypoglycemia. Medical Records Attestation: I reviewed the patient's medical records. Home Medications Current Medication List: was personally reviewed by me Laboratory Data Attestation: I reviewed the patient's lab results. Result diagrams: 11/14/21 21:25 11/14/21 21:25 Lab Results 11/14/21 11/14/21 11/14/21 Range/Units 21:25 21:25 21:25 WBC 20.42 H (4.8-10.8) K/ul RBC 5.65 (4.63-6.08) M/uL Hgb 16.2 (14.0-18.0) g/dl Hct 49.5 (40.1-51.0) % MCV 87.6 (80.0-100.0) fL MCH 28.7 (25.0-34.0) pg MCHC 32.7 (32.0-36.0) g/dL RDW Std Deviation 50.8 H (36.4-46.3) fL RDW Coeff of Nuno 16.2 H (11.5-14.5) % Plt Count 365 (130-400) K/uL MPV 9.4 (9.4-12.4) fL Immature Gran % (Auto) 0.5 % Neut % (Auto) 88.7 % Lymph % (Auto) 6.2 % [place] % (Auto) 4.5 % Eos % (Auto) 0.0 % Baso % (Auto) 0.1 % Neut # (Auto) 18.11 H (1.4-6.5) K/uL Lymph # (Auto) 1.26 (1.2-3.4) K/uL [place] # (Auto) 0.92 H (0.24-0.82) K/uL Eos # (Auto) 0.00 (0-0.50) K/uL Baso # (Auto) 0.02 (0-0.2) K/uL Immature Gran # (Auto) 0.11 H (0.00-0.02) K/uL PT 11.6 (9.0-12.0) Seconds INR 1.1 (0.9-1.1) APTT 26.8 (21.0-31.0) Seconds PTT Ratio 1.0 Sodium 142 (136-145) mmol/L Potassium 4.9 (3.5-5.1) mmol/L Chloride 106 (98-107) mmol/L Carbon Dioxide 21 (21-32) mmol/L Anion Gap 15 H (3-11) BUN 53 H (6-23) mg/dl Creatinine 2.14 H (0.6-1.4) mg/dl Est Cr Clr Drug Dosing Not Reportable Est GFR ( Amer) 31.3 ml/min Est GFR (Non-Af Amer) 27.0 ml/min BUN/Creatinine Ratio 24.8 H (10-20) Glucose 142 H (70-99(Fasting)) mg/dl Calcium 10.7 H (8.5-10.1) mg/dl Magnesium 2.1 (1.7-2.4) mg/dl Total Bilirubin 1.0 (0.2-1.0) mg/dl AST 27 (13-39) U/L ALT 32 (7-52) U/L Alkaline Phosphatase 114 H (34-104) U/L Total Protein 8.2 (6.0-8.3) gm/dl Albumin 4.1 (3.4-5.0) gm/dl Globulin 4.1 H (2.5-4.0) gm/dl Albumin/Globulin Ratio 1.0 (0.9-2) Procalcitonin (0-0.5) ng/ml Urine Color Urine Appearance (Clear) Urine pH (4.5-7.5) Ur Specific [place] (1.000-1.030) Urine Protein (Negative) Urine Glucose (UA) (Negative) Urine Ketones (Negative) Urine Blood (Negative) Urine Nitrite (Negative) Urine Bilirubin (Negative) Urine Urobilinogen (Negative) Ur Leukocyte Esterase (Negative) Urine WBC (Auto) (0-5) /hpf Urine RBC (Auto) (0-4) /hpf U Hyaline Cast (Auto) U Epithel Cells (Auto) (0-5) /lpf Urine Bacteria (Auto) (Negative) Ur Renal Epithelial Cell Amorphous Sediment (None Prsent) Urine Yeast SARS-CoV-2, RNA, NAAT (NEGATIVE) 11/14/21 11/14/21 11/14/21 Range/Units 21:25 21:32 21:36 WBC (4.8-10.8) K/ul RBC (4.63-6.08) M/uL Hgb (14.0-18.0) g/dl Hct (40.1-51.0) % MCV (80.0-100.0) fL MCH (25.0-34.0) pg MCHC (32.0-36.0) g/dL RDW Std Deviation (36.4-46.3) fL RDW Coeff of Nuno (11.5-14.5) % Plt Count (130-400) K/uL MPV (9.4-12.4) fL Immature Gran % (Auto) % Neut % (Auto) % Lymph % (Auto) % [place] % (Auto) % Eos % (Auto) % Baso % (Auto) % Neut # (Auto) (1.4-6.5) K/uL Lymph # (Auto) (1.2-3.4) K/uL [place] # (Auto) (0.24-0.82) K/uL Eos # (Auto) (0-0.50) K/uL Baso # (Auto) (0-0.2) K/uL Immature Gran # (Auto) (0.00-0.02) K/uL PT (9.0-12.0) Seconds INR (0.9-1.1) APTT (21.0-31.0) Seconds PTT Ratio Sodium (136-145) mmol/L Potassium (3.5-5.1) mmol/L Chloride (98-107) mmol/L Carbon Dioxide (21-32) mmol/L Anion Gap (3-11) BUN (6-23) mg/dl Creatinine (0.6-1.4) mg/dl Est Cr Clr Drug Dosing Est GFR ( Amer) ml/min Est GFR (Non-Af Amer) ml/min BUN/Creatinine Ratio (10-20) Glucose (70-99(Fasting)) mg/dl Calcium (8.5-10.1) mg/dl Magnesium (1.7-2.4) mg/dl Total Bilirubin (0.2-1.0) mg/dl AST (13-39) U/L ALT (7-52) U/L Alkaline Phosphatase (34-104) U/L Total Protein (6.0-8.3) gm/dl Albumin (3.4-5.0) gm/dl Globulin (2.5-4.0) gm/dl Albumin/Globulin Ratio (0.9-2) Procalcitonin 0.06 (0-0.5) ng/ml Urine Color Yellow Urine Appearance Cloudy A (Clear) Urine pH >= 9.0 H (4.5-7.5) Ur Specific [place] 1.016 (1.000-1.030) Urine Protein 4+ H (Negative) Urine Glucose (UA) Negative (Negative) Urine Ketones Negative (Negative) Urine Blood 2+ H (Negative) Urine Nitrite Negative (Negative) Urine Bilirubin Negative (Negative) Urine Urobilinogen Negative (Negative) Ur Leukocyte Esterase 2+ H (Negative) Urine WBC (Auto) 10-30 H (0-5) /hpf Urine RBC (Auto) 10-30 H (0-4) /hpf U Hyaline Cast (Auto) Not Reportable U Epithel Cells (Auto) >30 H (0-5) /lpf Urine Bacteria (Auto) 4+ H (Negative) Ur Renal Epithelial Cell Not Reportable Amorphous Sediment Present A (None Prsent) Urine Yeast Not Reportable SARS-CoV-2, RNA, NAAT NEGATIVE (NEGATIVE) ECG Data Attestation: I personally reviewed and interpreted this ECG as follows: MDM Narrative 86-year-old male presents with decreased urine output from his Cruz catheter as well as decreased p.o. intake today and generalized weakness and malaise. Cruz catheter is likely clogged as a bedside ultrasound shows enlarged bladder. White blood cell count was 20. BUN is 53 with a creatinine of 2.14. Baseline creatinine is around 1. The patient's urine is suspicious for infection. Chest x-ray suggest right lower lobe atelectasis. COVID test was negative. The patient was given empiric IV cefepime 2 g. 1 L normal saline IV was given as well. Patient remained stable. A new Cruz catheter was placed and drained approximately 500 cc from the bladder. Will be seen by the hospitalist. Impression & Plan Obstructed Cruz catheter, Acute kidney injury, UTI (urinary tract infection), Acute dehydration Discharge Plan Visit Data Chief Complaint: Weakness Stated Complaint: WEAKNESS, DEHYDRATED, STAGE 4 LUNG CANCER ED Provider: Stiven Harris Discharge Problem: Obstructed Cruz catheter, Acute kidney injury, UTI (urinary tract infection), Acute dehydration Patient Disposition: Being Evaluated by Hospitalist Forms Stand Alone Forms: My [facility] [employer] Prescriptions Prescriptions: No Action pravastatin 20 mg tablet 20 mg PO DAILY Qty: 90 3RF ergocalciferol (vitamin D2) 1,250 mcg (50,000 unit) capsule 1,250 mcg PO .COMPLEX Qty: 12 0RF Rx Instructions: 1,250 mcg PO one tablet once a week; tamsulosin 0.4 mg capsule 0.4 mg PO DAILY Qty: 90 3RF timolol 0.5 % drops 1 drp ophthalmic (eye) BID Stiolto Respimat 2.5-2.5 mcg/actuation mist 2 puff inhalation DAILY Qty: 4 5RF Travatan Z 0.004 % drops 1 drops OP QPM Keytruda 25 mg/mL solution See Rx Instructions IV .COMPLEX Rx Instructions: IV Every 3 weeks; metoprolol succinate 25 mg Tablet Extended Release 24 Hr 25 mg PO HS Qty: 30 0RF Referrals Referrals: Pro,Yoan Busby MD [Primary Care Provider] -
[2021-11-14 22:22] LABS: Protein Urine 4+ (Negative)
[2021-11-14 23:03] LABS: Amorphous Sediment Urine Present (None Prsent)
--- NOTE | 2021-11-15 01:15 | History & Physical Report ---
Date of Service November 15, 2021 Assessment & Plan (1) UTI (urinary tract infection): Plan: Complicated UTI secondary to obstructed Cruz catheter- WBC 20.42 with left shift, and with initial presentation of tachycardia and altered mentation. 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 Primary Care Provider: Yoan Nickerson MD The patient is a 86-year-old male with a past medical history including atrial fibrillation, urinary retention, hyperlipidemia, metastatic adenocarcinoma, mixed restrictive and obstructive lung disease, COPD, malignant pleural effusion, adenocarcinoma of lung, SNHL of both ears, hypertension, BPH with LUTS and gout. Patient presents to the emergency department as noted above. The ED was successfully able to get drainage, and the Cruz was containing bloody urine for drainage. The patient himself somewhat lethargic, and is not able to respond to questioning. His provides HPI and review of systems as noted Allergies Allergy/AdvReac Type Severity Reaction Status Date / Time amoxicillin [From Augmentin] Allergy Intermediate Rash Verified 11/14/21 23:02 clavulanic acid Allergy Intermediate Rash Verified 11/14/21 23:02 [From Augmentin] [id number] Reductase Allergy Unknown Unknown Verified 11/14/21 22:59 Inhibitor Home Medications Medication Instructions Recorded Confirmed Type travoprost 0.004 % eye drops 1 drops ophthalmic (eye) QPM 12/17/18 11/14/21 History (Travatan Z) timolol 0.5 % eye drops 1 drp ophthalmic (eye) BID 05/18/20 11/14/21 History pembrolizumab 25 mg/mL intravenous See Rx Instructions IV .COMPLEX 06/25/21 11/14/21 History solution (Keytruda) tiotropium 2.5 mcg-olodaterol 2.5 2 puff inhalation DAILY #4 grams 07/02/21 11/14/21 Rx mcg/actuation mist for inhalation (Stiolto Respimat) metoprolol succinate 25 mg 25 mg PO HS #30 tabs 08/13/21 11/14/21 Rx tablet,extended release 24 hr ergocalciferol (vitamin D2) 1,250 1,250 mcg PO .COMPLEX #12 caps 08/16/21 11/14/21 Rx mcg (50,000 unit) capsule pravastatin 20 mg tablet 20 mg PO DAILY #90 tabs 08/16/21 11/14/21 Rx tamsulosin 0.4 mg capsule 0.4 mg PO DAILY #90 caps 08/31/21 11/14/21 Rx Past Med/Surg History Medical History Actinic keratosis Acute gout Benign colon polyp BPH loc w urin obs/LUTS Carotid artery plaque Empyema lung Essential (primary) hypertension Glaucoma Hematuria Metastatic adenocarcinoma Pleural effusion on right Renal cyst, right Sensorineural hearing loss (SNHL) of both ears Tinnitus Surgical History History of prostate biopsy S/P cataract surgery Status post Mohs surgery Family History Daughter Colon cancer Mother Congestive heart failure Father Congestive heart failure Denies family history of Ovarian cancer Prostate cancer Myocardial infarction Breast cancer Social History Smoking Status: Former smoker Tobacco Type: Cigarettes Cigarettes Per Day: PIPE SMOKE FOR 5 YEARS - QUIT 50 YEARS AGO; Second Hand Exposure: No; Hx Alcohol Use: No Hx Substance Use: No Preferred Language: Montserratian Communication Ability: Effective Visual Impairment: No Limitations Hearing Ability: Normal Acute Dialysis Registered Nurse Required: No Beliefs That Will Affect Care: None marital status: Current Living Situation: Spouse current occupational status: retired Feels Safe at Home: Yes Childhood Exposure to Second-Hand Smoke: Yes Dental Care, Regularly: Yes Physical Activity Frequency: Daily Seatbelt Use: always Sunscreen Use: Yes Assistive Devices: Glasses Review of Systems Review of Systems: His provides information for HPI and review of systems as noted Physical Exam Physical Exam: The patient is lethargic, well developed and well nourished, normocephalic and atraumatic, lying in bed and in no acute distress. HEENT--PERRL, EOMI, mucous membranes and oropharynx dry. Neck--supple. No JVD. No bruits. Thyroid normal, trachea midline, no adenopathy. Heart--normal S1 and S2. No murmurs, rubs or gallops. Lungs--clear bilaterally, no respiratory distress, no accessory muscle use. Abdomen--normal bowel sounds and soft. Nontender. Nondistended, no hernias or masses, no organomegaly. Extremities--no cyanosis or clubbing. No edema. . Dermatologic--normal skin turgor, normal color, no abnormal lymph nodes, no rash. Neurologic--cranial nerves II through XII grossly intact. Rheumatologic--normal range of motion. Psychiatric--normal affect. Results & Data Results & Data ([facility]) Vital Signs (Past 12 Hours) Vital Signs Temp Pulse Pulse Resp BP BP Pulse Ox 11/15/21 01:00 76 14 126/55 L 97 11/14/21 22:31 93 H 20 152/77 H 98 11/14/21 22:05 103 H 14 149/87 H 97 11/14/21 23:00 84 16 139/88 96 11/14/21 21:44 11/14/21 21:44 11/14/21 19:57 36.2 C L 107 H 16 168/96 H 96 O2 Del Method 11/15/21 01:00 11/14/21 22:31 11/14/21 22:05 11/14/21 23:00 11/14/21 21:44 Room Air 11/14/21 21:44 Room Air 11/14/21 19:57 Room Air Laboratory Results Laboratory Results WBC 20.42 K/ul (4.8-10.8) H 11/14/21 21:25 RBC 5.65 M/uL (4.63-6.08) 11/14/21 21: Hgb 16.2 g/dl (14.0-18.0) 11/14/21: Hct 49.5 % (40.1-51.0) 11/14/21: MCV 87.6 fL (80.0-100.0) 11/14/21: MCH 28.7 pg (25.0-34.0) 11/14/21: MCHC 32.7 g/dL (32.0-36.0) 11/14/21: RDW Std Deviation 50.8 fL (36.4-46.3) H 11/14/21: RDW Coeff of Nuno 16.2 % (11.5-14.5) H 11/14/21: Plt Count 365 K/uL (130-400) 11/14/21: MPV 9.4 fL (9.4-12.4) 11/14/21: Immature Gran % (Auto) 0.5 % 11/14/21: Neut % (Auto) 88.7 % 11/14/21: Lymph % (Auto) 6.2 % 11/14/21: [facility] % (Auto) 4.5 % 11/14/21: Eos % (Auto) 0.0 % 11/14/21: Baso % (Auto) 0.1 % 11/14/21 Neut # (Auto) 18.11 K/uL (1.4-6.5) H 11/14/21: Lymph # (Auto) 1.26 K/uL (1.2-3.4) 11/14/21: [facility] # (Auto) 0.92 K/uL (0.24-0.82) H 11/14/21: Eos # (Auto) 0.00 K/uL (0-0.50) 11/14/21: Baso # (Auto) 0.02 K/uL (0-0.2) 11/14/21: Immature Gran # (Auto) 0.11 K/uL (0.00-0.02) H 08/21/22 21:25 PT 11.6 Seconds (9.0-12.0) 11/14/21:25 INR 1.1 (0.9-1.1) 11/14/21: APTT 26.8 Seconds (21.0-31.0) 11/14/21: PTT Ratio 1.0 11/14/21 21:25 Sodium 142 mmol/L (136-145) 11/14/21:25 Potassium 4.9 mmol/L (3.5-5.1) 11/14/21:25 Chloride 106 mmol/L (98-107) 11/14/21:25 Carbon Dioxide 21 mmol/L (21-32) 11/14/21:25 Anion Gap 15 (3-11) H 11/14/21:25 BUN 53 mg/dl (6-23) H 11/14/21: Creatinine 2.14 mg/dl (0.6-1.4) H 11/14/21: Est Cr Clr Drug Dosing Not Reportable 11/14/21:25 Est GFR ( Amer) 31.3 ml/min 11/14/21: Est GFR (Non-Af Amer) 27.0 ml/min 11/14/21 21:25 BUN/Creatinine Ratio 24.8 (10-20) H 11/14/21 21:25 Glucose 142 mg/dl (70-99(Fasting)) H 11/14/21: Calcium 10.7 mg/dl (8.5-10.1) H 11/14/21: Magnesium 2.1 mg/dl (1.7-2.4) 11/14/21: Total Bilirubin 1.0 mg/dl (0.2-1.0) 11/14/21: AST 27 U/L (13-39) 11/14/21 21:25 ALT 32 U/L (7-52) 11/14/21 21:25 Alkaline Phosphatase 114 U/L (34-104) H 11/14/21:25 Total Protein 8.2 gm/dl (6.0-8.3) 11/14/21:25 Albumin 4.1 gm/dl (3.4-5.0) 08/21/22 21:25 Globulin 4.1 gm/dl (2.5-4.0) H 11/14/21 21:25 Albumin/Globulin Ratio 1.0 (0.9-2) 11/14/21 21:25 Procalcitonin 0.06 ng/ml (0-0.5) 11/14/21 21:25 Urine Color Yellow 11/14/21 21:36 Urine Appearance Cloudy (Clear) A 11/14/21 21:36 Urine pH >= 9.0 (4.5-7.5) H 11/14/21 21:36 Ur Specific [place] 1.016 (1.000-1.030) 11/14/21 21:36 Urine Protein 4+ (Negative) H 11/14/21 21:36 Urine Glucose (UA) Negative (Negative) 11/14/21 21:36 Urine Ketones Negative (Negative) 11/14/21 21:36 Urine Blood 2+ (Negative) H 11/14/21 21:36 Urine Nitrite Negative (Negative) 11/14/21 21:36 Urine Bilirubin Negative (Negative) 11/14/21 21:36 Urine Urobilinogen Negative (Negative) 11/14/21 21:36 Ur Leukocyte Esterase 2+ (Negative) H 11/14/21 21:36 Urine WBC (Auto) 10-30 /hpf (0-5) H 11/14/21 21:36 Urine RBC (Auto) 10-30 /hpf (0-4) H 11/14/21 21:36 U Hyaline Cast (Auto) Not Reportable 11/14/21 21:36 U Epithel Cells (Auto) >30 /lpf (0-5) H 11/14/21 21:36 Urine Bacteria (Auto) 4+ (Negative) H 11/14/21 21:36 Ur Renal Epithelial Cell Not Reportable 11/14/21 21:36 Amorphous Sediment Present (None Prsent) A 11/14/21 21:36 Urine Yeast Not Reportable 11/14/21 21:36 SARS-CoV-2, RNA, NAAT NEGATIVE (NEGATIVE) 11/14/21 21:32 Code Status & VTE Plan Code Status Full code VTE Prophylaxis Plan VTE Prophylaxis will be ordered: Yes PG Care Time/CCT Total # of Minutes Spent Total Time Spent with Patient: Total time spent is greater than 50% in coordination of care (as documented) at patient's floor/unit and/or counseling patient: Coding Level of Care Code 79203 Initial Inpt Care Lvl 3 Diagnoses UTI (urinary tract infection) N39.0 Obstructed Cruz catheter T83.091A Acute kidney injury N17.9 Atrial fibrillation I48.91 Mixed restrictive and obstructive lung disease J43.9; J98.4 Adenocarcinoma of lung C34.90 Essential (primary) hypertension I10 BPH loc w urin obs/LUTS N40.1
[2021-11-15] MEDS ORDERED: ONDANSETRON INJ 2 MG/ML 2 ML VIAL IV PRN (02:44)
[2021-11-15] MEDS ORDERED: CEFEPIME 2,000 MG in SYRINGE 0 ML IV SCH ×2 (02:44→21:00)
[2021-11-15] MEDS ORDERED: ACETAMINOPHEN 325 MG TAB PO PRN (02:44)
[2021-11-15 05:14] LABS: Basophils # (auto) 0.01 K/uL (0-0.2); Basophils % (auto) 0.1 %; Hematocrit (blood only) 40.9 % (40.1-51.0); Hemoglobin 13.4 g/dl (14.0-18.0); Immature Granulocytes # (auto) 0.07 K/uL (0.00-0.02); Immature Granulocytes % (auto) 0.5 %; Lymphocytes # (auto) 1.41 K/uL (1.2-3.4); Lymphocytes % (auto) 9.5 %; Mean Corpuscular Hemoglobin 28.8 pg (25.0-34.0); Mean Corpuscular Hgb Conc 32.8 g/dL (32.0-36.0); Mean Corpuscular Volume 87.8 fL (80.0-100.0); Mean Platelet Volume 9.5 fL (9.4-12.4); Monocytes # (auto) 0.88 K/uL (0.24-0.82); Neutrophils # (auto) 12.41 K/uL (1.4-6.5); Neutrophils % (auto) 83.9 %; Platelet Count 266 K/uL (130-400); RDW Standard Deviation 51.3 fL (36.4-46.3); Red Blood Count 4.66 M/uL (4.63-6.08); White Blood Count 14.78 K/ul (4.8-10.8)
[2021-11-15] MEDS: Patient's HEIGHT &/or WEIGHT Needed SCH ×5 (05:19→20:45)
[2021-11-15] MEDS: SODIUM CHLORIDE 0.9% 1000ML 1,000 ML IV SCH ×3 (05:47→19:52)
[2021-11-15 06:05] LABS: Alanine Aminotransferase 23 U/L (7-52); Albumin Globulin Ratio 1.1 (0.9-2); Albumin Level 3.2 gm/dl (3.4-5.0); Alkaline Phosphatase 80 U/L (34-104); Anion Gap 9 (3-11); Aspartate Aminotransferase 21 U/L (13-39); BUN Creatinine Ratio 32.3 (10-20); Bilirubin,Total 0.9 mg/dl (0.2-1.0); Blood Urea Nitrogen 52 mg/dl (6-23); Calcium 9.5 mg/dl (8.5-10.1); Carbon Dioxide 22 mmol/L (21-32); Chloride 114 mmol/L (98-107); Est GFR (African American) 44.2 ml/min; Est GFR (Non-African American) 38.2 ml/min; Globulin 2.9 gm/dl (2.5-4.0); Glucose 100 mg/dl (70-99(Fasting)); Sodium 145 mmol/L (136-145); Total Protein 6.1 gm/dl (6.0-8.3)
--- NOTE | 2021-11-15 08:36 | XRay Report ---
SINGLE VIEW CHEST CLINICAL HISTORY: Sepsis. FINDINGS: An AP, portable, upright chest radiograph is compared to study dated 08/19/2021 and correlat ed with chest CT dated 08/10/2021. The examination is degraded by portable technique and patient rotat ion. The cardiomediastinal silhouette is unremarkable noting atherosclerotic calcification of the th oracic aorta. There is rightward shift of mediastinum. Emphysema and chronic interstitial thickening is similar to previous. There is postoperative change and volume loss in the right lung. Pleural effu birdie with right basilar scarring/fibrosis is similar to previous. There is no evidence of superimpose d airspace consolidation typical for pneumonia. No pneumothorax is seen. The skeletal structures are osteopenic. The bony thorax is grossly intact. IMPRESSION: 1. No acute cardiopulmonary abnormality. 2. Emphysema with chronic and postoperative change in the right lung as above. ACT 112: Negative or not required by law. Electronically signed by: Judd Cleary M.D. 11/15/2021 8:35 AM
[2021-11-15] MEDS: TAMSULOSIN HCL 0.4 MG CAP PO SCH (09:35)
[2021-11-15] MEDS: PRAVASTATIN SOD 20 MG TAB PO SCH (09:35)
[2021-11-15] MEDS: UMECLIDINIUM/VILANTEROL 62.5/25MCG 7 PUFFS/INHALER INH SCH (09:36)
[2021-11-15] MEDS: TIMOLOL MALEATE 0.5% OP SOLN 5 ML BTL OP SCH ×2 (09:36→21:26)
--- NOTE | 2021-11-15 12:33 | Electrocardiogram Report ---
Test Reason : Blood Pressure : / mmHG Vent. Rate : 113 BPM Atrial Rate : 110 BPM P-R Int : 000 ms QRS Dur : 060 ms QT Int : 296 ms P-R-T Axes : 000 -38 045 degrees QTc Int : 406 ms Poor data quality, interpretation may be adversely affected Atrial fibrillation vs. sinus rhythm with frequqent PACs Left axis deviation Abnormal ECG When compared with ECG of 10-AUG-2021 06:32, HR has increased by 17 bpm Current rhythm is uncertain Confirmed by Brannon Vogt ([id number]) on 11/15/2021 12:33:40 PM Referred By: REFERRED SELF Confirmed By:Brannon Vogt
--- NOTE | 2021-11-15 14:14 | History & Physical Bridge Note ---
Date of Service November 15, 2021 History & Physical Bridge Note I have examined the patient, reviewed the History & Physical and in the interval since the performance of the History & Physical I have noted the following changes of clinical significance: no changes made to plan. However, to clarify, pt did meet sepsis criteria with leukocytosis of 20.42 and tachycardia with urinary source of infection. Cultures are pending, but in the interim, will continue empiric Cefepime and tailor antibiotics once cultures finalized. WBC downtrending. Repeat labs ordered for tomorrow. PT/OT eval. D/C planning.
[2021-11-15] MEDS: METOPROLOL SUCC 25MG EXT REL TAB PO SCH (20:42)
[2021-11-15] MEDS ORDERED: CEFEPIME 1,000 MG in SYRINGE 0 ML IV SCH (21:00)
[2021-11-15] MEDS: TRAVOPROST Z 0.004% OPH SOLN 2.5 ML BTL OP SCH (21:26)
[2021-11-16 07:58] LABS: Basophils # (auto) 0.03 K/uL (0-0.2); Basophils % (auto) 0.3 %; Eosinophils # (auto) 0.04 K/uL (0-0.50); Eosinophils % (auto) 0.5 %; Hematocrit (blood only) 36.6 % (40.1-51.0); Hemoglobin 11.6 g/dl (14.0-18.0); Immature Granulocytes # (auto) 0.02 K/uL (0.00-0.02); Immature Granulocytes % (auto) 0.2 %; Lymphocytes # (auto) 1.44 K/uL (1.2-3.4); Lymphocytes % (auto) 16.4 %; Mean Corpuscular Hemoglobin 28.2 pg (25.0-34.0); Mean Corpuscular Hgb Conc 31.7 g/dL (32.0-36.0); Mean Corpuscular Volume 89.1 fL (80.0-100.0); Mean Platelet Volume 9.2 fL (9.4-12.4); Monocytes # (auto) 0.53 K/uL (0.24-0.82); Neutrophils # (auto) 6.73 K/uL (1.4-6.5); Neutrophils % (auto) 76.6 %; Platelet Count 214 K/uL (130-400); RDW Coefficient of Variation 15.6 % (11.5-14.5); RDW Standard Deviation 50.8 fL (36.4-46.3); Red Blood Count 4.11 M/uL (4.63-6.08); White Blood Count 8.79 K/ul (4.8-10.8)
[2021-11-16] MEDS: SODIUM CHLORIDE 0.9% 1000ML 1,000 ML IV SCH (08:01)
[2021-11-16 08:17] LABS: Albumin Globulin Ratio 1.1 (0.9-2); Albumin Level 2.8 gm/dl (3.4-5.0); BUN Creatinine Ratio 41.8 (10-20); Bilirubin,Total 0.8 mg/dl (0.2-1.0); Calcium 8.7 mg/dl (8.5-10.1); Creatinine Clr Calc Pharmacy 39.8 ml/min; Est GFR (African American) 70.1 ml/min; Est GFR (Non-African American) 60.5 ml/min; Globulin 2.5 gm/dl (2.5-4.0); Potassium 3.6 mmol/L (3.5-5.1); Total Protein 5.3 gm/dl (6.0-8.3)
[2021-11-16] MEDS: UMECLIDINIUM/VILANTEROL 62.5/25MCG 7 PUFFS/INHALER INH SCH (08:50)
[2021-11-16] MEDS: TIMOLOL MALEATE 0.5% OP SOLN 5 ML BTL OP SCH ×2 (08:50→20:33)
[2021-11-16] MEDS: TAMSULOSIN HCL 0.4 MG CAP PO SCH (08:51)
[2021-11-16] MEDS: PRAVASTATIN SOD 20 MG TAB PO SCH (08:51)
--- NOTE | 2021-11-16 11:57 | Hospitalist Progress Note ---
Date of Service November 16, 2021 Assessment & Plan (1) UTI (urinary tract infection): Plan: Complicated UTI secondary to obstructed Harvey catheter- - WBC 20.42 with left shift, and with initial presentation of tachycardia and altered mentation thus meeting sepsis criteria - Urine culture and blood cultures ordered - Blood cultures with NGTD, urine culture still pending (pin-point growth noted, reincubating) - Continue cefepime 2 g IV q12h until culture data finalized, tailor accordingly - Status post 1 L NS bolus in the ED and kept on maintenance fluids at 80 ml/hr - Continue tamsulosin - Can cap IVF, tolerating oral intake and wbc count has normalized (sepsis resolved) (2) Obstructed Harvey catheter: Plan: - Continue irrigation as noted - Draining well w/o issue (3) Acute kidney injury: Plan: - Creatinine 2.14 upon admission, with base 0.93 - IV fluids as noted - Renal function has normalized, fluids stopped (4) Atrial fibrillation: Plan: Atrial fibrillation/hypertension- - Rate controlled, Continue metoprolol succinate (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 PT/OT eval. Repeat labs. Await finalized urine culture data to tailor abx therapy. D/c planning, likely ready tomorrow. Plan to be d/w Dr. Ariella Morales. Admission and Anticipated Discharge Date Admission Date: November 15, 2021 Subjective Patient seen on daily rounds this morning. He is resting comfortably in bed and offers no complaints. He denies penile pain/catheter discomfort, abd pain, n/v/d, f/c, headache, chest pain or dyspnea. No issues reported by RN. Review of Systems Review of Systems: All systems reviewed and are unremarkable except as noted in HPI and below. Denies fever, chills, fatigue, headache, nasal congestion, sore throat, cough, chest pain, shortness of breath, palpitations, orthopnea, PND, abdominal pain, n/v/d, constipation, dysuria, hematuria, frequency, back pain, joint pain or swelling, easy bruising or bleeding, skin lesions or rashes. Physical Exam Physical Exam: GENERAL: 86 yo Well-developed, well-nourished but thin elderly WM. NAD. LUNGS: Clear to auscultation bilaterally but decreased in bases. CARDIOVASCULAR: S1 S2 irregular ABDOMEN: Soft, non-tender and non-distended. BS normoactive x 4 quad. : harvey draining clear yellow urine EXTREMITIES: No edema. Non-tender. Peripheral pulses +2/4. NEUROLOGIC: A&O x3. PSYCHIATRIC: Cooperative. Appropriate mood and affect. SKIN: Warm, dry, intact. No rashes or lesions. Results & Data Results & Data ([facility]) Vital Signs (Past 12 Hours) Vital Signs Temp Pulse Resp BP Pulse Ox O2 Del Method 11/16/21 07:35 36.6 C 53 L 17 133/65 97 Room Air Laboratory Results 11/16/21 07:35 11/16/21 07:35 PG Care Time/CCT Total # of Minutes Spent Total Time Spent with Patient: Total time spent is greater than 50% in coordination of care (as documented) at patient's floor/unit and/or counseling patient: Coding Level of Care Code 16829 Subseq Hosp Care Lvl 2 Diagnoses UTI (urinary tract infection) N39.0 Obstructed Harvey catheter T83.091A Acute kidney injury N17.9 Atrial fibrillation I48.91 Mixed restrictive and obstructive lung disease J43.9; J98.4 Adenocarcinoma of lung C34.90 Essential (primary) hypertension I10 BPH loc w urin obs/LUTS N40.1
[2021-11-16] MEDS: TRAVOPROST Z 0.004% OPH SOLN 2.5 ML BTL OP SCH (20:36)
[2021-11-16] MEDS: METOPROLOL SUCC 25MG EXT REL TAB PO SCH (20:37)
[2021-11-16] MEDS ORDERED: CEFEPIME 2,000 MG in SYRINGE 0 ML IV SCH (21:00)
[2021-11-17 06:53] LABS: Basophils # (auto) 0.03 K/uL (0-0.2); Basophils % (auto) 0.4 %; Eosinophils # (auto) 0.16 K/uL (0-0.50); Eosinophils % (auto) 1.9 %; Hematocrit (blood only) 36.9 % (40.1-51.0); Hemoglobin 12.1 g/dl (14.0-18.0); Immature Granulocytes # (auto) 0.04 K/uL (0.00-0.02); Immature Granulocytes % (auto) 0.5 %; Lymphocytes # (auto) 1.43 K/uL (1.2-3.4); Lymphocytes % (auto) 16.9 %; Mean Corpuscular Hemoglobin 28.9 pg (25.0-34.0); Mean Corpuscular Hgb Conc 32.8 g/dL (32.0-36.0); Mean Corpuscular Volume 88.1 fL (80.0-100.0); Mean Platelet Volume 9.6 fL (9.4-12.4); Monocytes # (auto) 0.62 K/uL (0.24-0.82); Monocytes % (auto) 7.3 %; Neutrophils # (auto) 6.19 K/uL (1.4-6.5); Platelet Count 205 K/uL (130-400); RDW Coefficient of Variation 14.9 % (11.5-14.5); Red Blood Count 4.19 M/uL (4.63-6.08); White Blood Count 8.47 K/ul (4.8-10.8)
[2021-11-17 07:19] VITALS: BP 151/72; TEMP 98.1; O2SAT 97
[2021-11-17 07:23] LABS: Albumin Globulin Ratio 1.2 (0.9-2); Albumin Level 2.9 gm/dl (3.4-5.0); BUN Creatinine Ratio 40.9 (10-20); Bilirubin,Total 0.6 mg/dl (0.2-1.0); Calcium 8.5 mg/dl (8.5-10.1); Creatinine Clr Calc Pharmacy 47.1 ml/min; Est GFR (African American) 85.9 ml/min; Est GFR (Non-African American) 74.1 ml/min; Globulin 2.4 gm/dl (2.5-4.0); Magnesium 1.7 mg/dl (1.7-2.4); Potassium 3.3 mmol/L (3.5-5.1); Total Protein 5.3 gm/dl (6.0-8.3)
[2021-11-17] MEDS ORDERED: POTASSIUM CHLORIDE CRTAB 20 MEQ TABCR PO STA (08:20)
[2021-11-17] MEDS: UMECLIDINIUM/VILANTEROL 62.5/25MCG 7 PUFFS/INHALER INH SCH (08:53)
[2021-11-17] MEDS: TIMOLOL MALEATE 0.5% OP SOLN 5 ML BTL OP SCH (08:53)
[2021-11-17] MEDS: TAMSULOSIN HCL 0.4 MG CAP PO SCH (08:54)
[2021-11-17] MEDS: PRAVASTATIN SOD 20 MG TAB PO SCH (08:54)
--- NOTE | 2021-11-17 14:02 | Discharge Summary ---
Date of Service November 17, 2021 Admission HPI Per Admitting Provider The patient is a 86-year-old male with a past medical history including atrial fibrillation, urinary retention, hyperlipidemia, metastatic adenocarcinoma, mixed restrictive and obstructive lung disease, COPD, malignant pleural effusion, adenocarcinoma of lung, SNHL of both ears, hypertension, BPH with LUTS and gout. Patient presents to the emergency department as noted above. The ED was successfully able to get drainage, and the Armas was containing bloody urine for drainage. The patient himself somewhat lethargic, and is not able to respond to questioning. His provides HPI and review of systems as noted. Principal Diagnosis 1. Sepsis secondary to UTI-resolved 2. Urinary catheter obstruction 3. FAY-resolved 4. Hypokalemia-corrected Discharge Exam GENERAL: 86 yo Well-developed, well-nourished but thin elderly WM. NAD. LUNGS: Clear to auscultation bilaterally but decreased in bases. CARDIOVASCULAR: S1 S2 irregular rhythm with controlled rate ABDOMEN: Soft, non-tender and non-distended. BS normoactive x 4 quad. : armas draining clear yellow urine EXTREMITIES: No edema. Non-tender. Peripheral pulses +2/4. NEUROLOGIC: A&O x3. PSYCHIATRIC: Cooperative. Appropriate mood and affect. SKIN: Warm, dry, intact. No rashes or lesions. Discharge Data Allergies Allergy/AdvReac Type Severity Reaction Status Date / Time amoxicillin [From Augmentin] Allergy Intermediate Rash Verified 11/14/21 23:02 clavulanic acid Allergy Intermediate Rash Verified 11/14/21 23:02 [From Augmentin] [id number] Reductase Allergy Unknown Unknown Verified 11/14/21 22:59 Inhibitor Consultations 11/15/21 00:59 ED Decision to Admit Stat Ordered Studies Chest X-Ray 11/14/21 20:01 SINGLE VIEW CHEST CLINICAL HISTORY: Sepsis. FINDINGS: An AP, portable, upright chest radiograph is compared to study dated 08/19/2021 and correlated with chest CT dated 08/10/2021. The examination is degraded by portable technique and patient rotation. The cardiomediastinal silhouette is unremarkable noting atherosclerotic calcification of the thoracic aorta. There is rightward shift of mediastinum. Emphysema and chronic interstitial thickening is similar to previous. There is postoperative change and volume loss in the right lung. Pleural effusion with right basilar scarring/fibrosis is similar to previous. There is no evidence of superimposed airspace consolidation typical for pneumonia. No pneumothorax is seen. The skeletal structures are osteopenic. The bony thorax is grossly intact. IMPRESSION: 1. No acute cardiopulmonary abnormality. 2. Emphysema with chronic and postoperative change in the right lung as above. ACT 112: Negative or not required by law. Electronically signed by: Judd Cleary M.D. 11/15/2021 8:35 AM Spec: [id number] Collected: 11/14/21 Received: 11/14/[address]: TON,ED Copy To: Stiven Harris D.O. Source: Urine,Clean Catch OV Order: Ordered: Urine Culture Procedure Result Verified Site Urine Culture Final 11/16/21 Organism 1 Diptheroids Spencer Count >100,000 CFU/ml Sens No Sensitivities to Follow +Mix Urine Plus Moderate Counts of Other Mixed Ana Laura Spec: [id number] Collected: 11/14/21 Received: 11/14/[address]: TON,ED Copy To: Stiven Harris D.O. Source: Blood OV Order: Ordered: Blood Culture Comments: same time. Procedure Result Verified Site Blood Culture Aerobic Preliminary 11/16/21 No growth in Aerobic bottle after 48 hours. Blood Culture Anaerobic Preliminary 11/16/21 No growth in Anaerobic bottle after 48 hours. Hospital Course (1) UTI (urinary tract infection): Complicated UTI secondary to obstructed Armas catheter- - WBC 20.42 with left shift, and with initial presentation of tachycardia and altered mentation thus meeting sepsis criteria - Urine culture and blood cultures ordered - Blood cultures with NGTD - Continue cefepime 2 g IV q12h until culture data finalized, tailor accordingly - Status post 1 L NS bolus in the ED and kept on maintenance fluids at 80 ml/hr - Continue tamsulosin - Capped IVF on 11/16, tolerating oral intake and wbc count normalized (sepsis resolved) - Urine culture finalized as diptheroids - since pt has responded to Cefepime, will de-escalate to Cefdinir 300mg BID x 10 days (2) Obstructed Armas catheter: - Continue irrigation as noted - Draining well w/o issue (3) Acute kidney injury: - Creatinine 2.14 upon admission, with base 0.93 - IV fluids as noted - Renal function has normalized, fluids stopped on 11/16 (4) Atrial fibrillation: Atrial fibrillation/hypertension- - Rate controlled, Continue metoprolol succinate (5) Mixed restrictive and obstructive lung disease: - Continue routine inhalers (6) Adenocarcinoma of lung: - Follows with oncology, on keytruda infusions (7) Essential (primary) hypertension: - BP well controlled (8) BPH loc w urin obs/LUTS: Continue Armas catheter + flomax Plan Patient seen by PT/OT - felt that he could return home. Pt instructed to f/u with his pcp within 1 week of discharge. Also advised scheduled f/u with urology as arranged. Follow up with oncology as scheduled. Plan has been d/w Dr. Hayden Morales who has also seen and evaluated patient and agrees with aforementioned. Total Time Total Time Spent Total Time Spent (In Minutes): >30 minutes Discharge Plan Discharge Items Patient Disposition: Home - Self-Care Reason For Visit: UTI, ARMAS COMPLICATION Discharge Diagnosis: urinary tract infection Activity: Resume your previous activity Non-emergency contact: Primary Care Provider, Oncologist and Urologist Call non-emergency contact if: you have any medication questions and your symptoms worsen Follow-up/Referrals: Yoan Nickerson MD [Primary Care Provider] - 11/30/21 11:45 am (APPT WITH NIKKY GOMEZ PA-C) Diet: Regular Addtl Attending Provider Instructions: You were hospitalized due to a blockage of your urinary catheter and urinary tract infection. You were started on IV antibiotics and IV fluids. Fortunately your blood cultures were negative for any growth of bacteria in your bloodstream. You are going to be sent home on a course of antibiotics to complete at home called Cefdinir. The dose will be 300mg, and you will take one capsule in the morning and one in the evening. The prescription has been sent to your pharmacy. Your next dose is due on 11/17/21 before bed. Please complete the full course and do not leave any pills left over. Physical and occupational therapy has worked with you throughout your stay and felt that you could return home safely with home health. This is being arranged by case management. We recommend that you follow up with your family doctor, Dr. Nickerson, within 1 week of discharge. Please follow up as scheduled with your urologist, Dr. Pimentel. If you have any questions following your discharge, call the nonemergency number listed on your discharge paperwork. In the event of a medical emergency, call 911. Pending Studies at Discharge: No Stand-Alone Forms: [facility], Smoking Cessation Medications and DC Order Prescriptions: New cefdinir 300 mg capsule 300 mg PO BID 10 Days Qty: 20 0RF Rx Instructions: start 11/17/21 evening Continued pravastatin 20 mg tablet 20 mg PO DAILY Qty: 90 3RF ergocalciferol (vitamin D2) 1,250 mcg (50,000 unit) capsule 1,250 mcg PO .COMPLEX Qty: 12 0RF Rx Instructions: 1,250 mcg PO one tablet once a week; tamsulosin 0.4 mg capsule 0.4 mg PO DAILY Qty: 90 3RF timolol 0.5 % drops 1 drp ophthalmic (eye) BID Stiolto Respimat 2.5-2.5 mcg/actuation mist 2 puff inhalation DAILY Qty: 4 5RF Travatan Z 0.004 % drops 1 drops OP QPM Keytruda 25 mg/mL solution See Rx Instructions IV .COMPLEX Rx Instructions: IV Every 3 weeks; metoprolol succinate 25 mg Tablet Extended Release 24 Hr 25 mg PO HS Qty: 30 0RF Discharge Orders: Discharge Order (Routine); Ordered 11/17/21 Ordered By: Rajwinder Osborn/Other Patient Handouts: Anatomy of the Male Urinary Tract, UTIs Understanding, ED Bladder Infection, Male (Adult) Admission Data Admit Date/Time: 11/15/21 01:14 Attending Provider: Hayden Morales Admit Provider: Martin Timmons Primary Care Provider: Yoan Nickerson Other Providers: Martin Timmons Other Interventions: Discharge Summary Assessment (RN) Last Done: 11/17/21 15:31 Supervising Physician Co-Signing Physician Notes I supervised Radha Kim PA-C on the care of this patient. I interviewed and examined the patient independently of her. The plan is as written in her note except for any following changes/exceptions: None Patient doing well today. No signs of sepsis, and can treat UTI with oral abx. Discussed with patient and re: what to do if Armas clogs again which it was for several days prior to admission. They tried to use a paper clip to "fish hook" out some debris. I encouraged them to call PCP or urology right away if this occurs again. Coding Level of Care Code D/C DAY MANAGEMENT >30 MINS Diagnoses UTI (urinary tract infection) N39.0 Obstructed Armas catheter T83.091A Acute kidney injury N17.9 Atrial fibrillation I48.91 Mixed restrictive and obstructive lung disease J43.9; J98.4 Adenocarcinoma of lung C34.90 Essential (primary) hypertension I10 BPH loc w urin obs/LUTS N40.1
[2021-11-17 15:34] VITALS: PULSE 64
== END 2021-11-17 16:36 | disposition home or self-care (01) | DRG 698 ==
LOC: ED 19:43 → EDINP 11-15 01:14 → SUATTDRO 11-15 01:14 → 3E 11-15 03:26
DX: C34.90 Malignant neoplasm of unspecified part of unspecified bronchus or lung; Z87.891 Personal history of nicotine dependence; Z88.0 Allergy status to penicillin; N13.8 Other obstructive and reflux uropathy; N40.1 Benign prostatic hyperplasia with lower urinary tract symptoms; I10 Essential (primary) hypertension; G93.41 Metabolic encephalopathy; Z88.8 Allergy status to other drugs, medicaments and biological substances; N39.0 Urinary tract infection, site not specified; T83.091A Other mechanical complication of indwelling urethral catheter, initial encounter; A41.9 Sepsis, unspecified organism; Y73.1 Therapeutic (nonsurgical) and rehabilitative gastroenterology and urology devices associated with adverse incidents; Z79.899 Other long term (current) drug therapy; J98.4 Other disorders of lung; Y84.6 Urinary catheterization as the cause of abnormal reaction of the patient, or of later complication, without mention of misadventure at the time of the procedure; N17.9 Acute kidney failure, unspecified; J44.9 Chronic obstructive pulmonary disease, unspecified; I48.91 Unspecified atrial fibrillation; T83.511A Infection and inflammatory reaction due to indwelling urethral catheter, initial encounter

== ENCOUNTER 2022-02-16 14:14 | Inpatient (IN) ==
[2022-02-16 14:47] LABS: Hematocrit (blood only) 45.1 % (40.1-51.0); Hemoglobin 14.7 g/dl (14.0-18.0); Mean Corpuscular Hgb Conc 32.6 g/dL (32.0-36.0); Mean Platelet Volume 8.7 fL (9.4-12.4); Platelet Count 286 K/uL (130-400); RDW Coefficient of Variation 15.3 % (11.5-14.5); RDW Standard Deviation 54.8 fL (36.4-46.3); White Blood Count 16.28 K/ul (4.8-10.8)
--- NOTE | 2022-02-16 14:56 | Emergency Department Note ---
Impression & Plan Pulmonary embolism, Leukocytosis, Breath shortness ED Provider Note NAME: JERARDO JOE AGE: 86 SEX: M : 1935 ARRIVES VIA: Walk-In INFORMANT: Patient ED PROVIDER(S): Bennett Ford DO CHIEF COMPLAINT: worsening shortness of breath HPI: Patient is an 86-year-old male with a past medical history of lung cancer, A. fib, hyperlipidemia, metastatic adenocarcinoma not undergoing any treatment, COPD, pleural effusion who presents the ER for cough, congestion, and upper respiratory symptoms associate with shortness of breath which has been worsening over the past week. Had a evaluation by PCP and was referred in today. He notes he is very weak and has trouble getting around. He has been on Levaquin and has not missed any doses since Monday. ROS: See above HPI for pertinent positives & negatives. A total of 10 systems reviewed and were otherwise negative. PAST MEDICAL HISTORY:See Below PAST SURGICAL HISTORY:See Below FAMILY HISTORY:See Below SOCIAL HISTORY:See Below HOME MEDICATIONS:See Below ALLERGIES:See Below VITALS:See Below PHYSICAL EXAMINATION: GENERAL: Sitting up in bed, alert, chronically ill-appearing, disheveled EYE EXAM: normal conjunctiva. PERRL and EOM's grossly intact. OROPHARYNX: no exudate, no erythema, lips, buccal mucosa, and tongue normal and mucous membranes are moist NECK: supple, no nuchal rigidity, no adenopathy, non-tender LUNGS: Diminished bilaterally. Normal chest wall mechanics HEART: no murmurs, S1 normal and S2 normal ABDOMEN: abdomen soft, non-tender, normo-active bowel sounds, no masses, no rebound or guarding. UPPER EXTREMITIES: upper extremities are grossly normal. LOWER EXTREMITIES: No pitting edema. NEURO EXAM: Normal sensorium, cranial nerves II-XII grossly intact, normal speech, no gross weakness of arms, no gross weakness of legs. MEDICAL DECISION MAKING: Patient is an 86-year-old gentleman with lung cancer not undergoing any treatment at this time who was recently treated for antibiotics for pneumonia on the of this month. Been taking Levaquin and feeling worse. Increased shortness of breath. IV was established blood work was obtained. Labs show leukocytosis of 16,000. No significant anemia. BMP along with LFTs bilirubin was unremarkable. Troponin was negative. Influenza, COVID and RSV was negative. Previous x-ray was reviewed and I do favor this most likely atelectasis. Chest x-ray today was clean. In light of the current cancer and shortness of breath and significant dyspnea with were walking CT angio of the chest was performed which showed PEs. Patient denies any coughing up blood, vomiting blood, urinating blood, recent trauma or surgery or previous head bleeds. Discussed the risk and benefits and patient was placed on heparin. Discussed with Dr. Christopher Tesfaye for further evaluation. Triage Nursing notes reviewed. Limited review of prior medical records performed Vital Signs: reviewed and remarkable for tachy Differential diagnosis: Differential diagnoses includes but is not limited to pneumonia, bronchitis, COPD/Asthma exacerbation, pneumothorax, pulmonary embolism, congestive heart failure, acute coronary syndrome ER treatment provided: See below Diagnostics interpreted by me: ECG: Sinus rhythm rate 73 Left axis No PVCs QTC 401 Cardiac Monitoring: An order was placed for continuous cardiac monitoring. The monitor shows a rate of 80 with sinus rhythm. Laboratory studies: As stated above and show below. Imaging studies: CT angio the chest shows PEs Consultation(s): Discussed with Dr. Christopher Gonzalez for further evaluation Procedures: none Critical Care: I have personally spent 32 minutes of critical care time in the direct management of this patient. This includes bedside care, interpretation of diagnostic studies, and testing, discussion with consultants, patient, and family members, and other required patient management activities. This 32 minutes is in excess of all separately billable procedures. Past Med/Surg History Medical History Actinic keratosis Acute gout Benign colon polyp BPH loc w urin obs/LUTS Carotid artery plaque Empyema lung Essential (primary) hypertension Glaucoma Hematuria Metastatic adenocarcinoma Pleural effusion on right Productive cough Renal cyst, right Sensorineural hearing loss (SNHL) of both ears Tinnitus Surgical History History of prostate biopsy S/P cataract surgery Status post Mohs surgery Family History Daughter Colon cancer Mother Congestive heart failure Father Congestive heart failure Denies family history of Ovarian cancer Prostate cancer Myocardial infarction Breast cancer Social History Smoking Status: Never smoker Tobacco Type: Cigarettes Cigarettes Per Day: PIPE SMOKE FOR 5 YEARS - QUIT 50 YEARS AGO; Second Hand Exposure: No; Hx Alcohol Use: No Hx Substance Use: No Preferred Language: Brazilian Communication Ability: Effective Communication Tools: Other Visual Impairment: No Limitations Hearing Ability: Normal Coal 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 Required: No Beliefs That Will Affect Care: None marital status: Current Living Situation: Spouse current occupational status: retired Other Information That Helps Us Care for You: No Feels Safe at Home: Yes Safety Concerns: Feels Safe At This Time Childhood Exposure to Second-Hand Smoke: Yes Dental Care, Regularly: Yes Physical Activity Frequency: Daily Seatbelt Use: always Sunscreen Use: Yes Assistive Devices: Denture - Upper and Glasses Assistive Devices Comment: dentures permanent Allergies Allergies Allergy/AdvReac Type Severity Reaction Status Date / Time amoxicillin [From Augmentin] Allergy Intermediate Rash Verified 02/16/22 18:04 clavulanic acid Allergy Intermediate Rash Verified 02/16/22 18:04 [From Augmentin] [id number] Reductase Allergy Unknown CAN'T Verified 02/16/22 18:04 Inhibitor REMEMBER Home Meds Home Medications Medication Instructions Recorded Confirmed travoprost 0.004 % eye drops 1 drops OPB QPM 12/17/18 02/16/22 (Travatan Z) timolol 0.5 % eye drops 1 drp OPB BID 05/18/20 02/16/22 megestrol 400 mg/10 mL (10 mL) 400 mg PO DAILY 11/30/21 02/16/22 oral suspension cyanocobalamin (vitamin B-12) 5,000 mcg sublingual DAILY 02/16/22 02/16/22 5,000 mcg sublingual tablet (Vitamin B-12) ergocalciferol (vitamin D2) 1,250 1,250 mcg PO WK 02/16/22 02/16/22 mcg (50,000 unit) capsule multivitamin 1 tab PO DAILY 02/16/22 02/16/22 pravastatin 20 mg tablet 20 mg PO HS 02/16/22 02/16/22 Previous Rx's Medication Instructions Recorded tamsulosin 0.4 mg capsule 0.4 mg PO DAILY #90 caps 08/31/21 metoprolol succinate 25 mg 25 mg PO HS #90 tabs 12/03/21 tablet,extended release 24 hr tiotropium 2.5 mcg-olodaterol 2.5 2 puff inhalation DAILY #4 grams 01/25/22 mcg/actuation mist for inhalation (Stiolto Respimat) levofloxacin 750 mg tablet 750 mg PO DAILY 7 days #7 tabs 02/10/22 ciprofloxacin HCl 500 mg tablet 500 mg PO BID #10 tabs 02/11/22 (Cipro) diazepam 10 mg tablet 10 mg PO ONCE #1 tab 02/11/22 Results & Data (ED) Vital Signs Vital Signs - 24 hr 02/16/22 14:15 02/16/22 16:01 02/16/22 14:15 Temperature 36.3 C L Temperature Source Temporal Artery Scan Pulse Rate 111 H Pulse Rate [Finger] 75 Pulse Rhythm [Finger] Regular Pulse Strength [Finger] Normal Respiratory Rate 20 19 Respiratory Effort / Characteristics Non-Labored Spontaneous Non-Labored Respiratory Depth Normal Normal Respiratory Pattern Blood Pressure 127/70 Blood Pressure [Right Arm] 146/88 H Blood Pressure Mean 89 Blood Pressure Mean [Right Arm] 107 Blood Pressure Position [Right Arm] Lying Pulse Oximetry 92 99 Pulse Oximetry [Exercises] 95 Oxygen Delivery Method Room Air Room Air Sepsis Recent Fever Within 48 Hours No Sepsis New/Unexplained Change in Mental Status No Sepsis Action Taken by Nursing No Action Required 02/16/22 16:15 Temperature Temperature Source Pulse Rate Pulse Rate [Finger] 74 Pulse Rhythm [Finger] Regular Pulse Strength [Finger] Normal Respiratory Rate 19 Respiratory Effort / Characteristics Non-Labored Respiratory Depth Normal Respiratory Pattern Regular Blood Pressure Blood Pressure [Right Arm] 144/88 H Blood Pressure Mean Blood Pressure Mean [Right Arm] 106 Blood Pressure Position [Right Arm] Lying Pulse Oximetry 96 Pulse Oximetry [Exercises] Oxygen Delivery Method Room Air Sepsis Recent Fever Within 48 Hours Sepsis New/Unexplained Change in Mental Status Sepsis Action Taken by Nursing Laboratory Data Result diagrams: 02/16/22 14:35 02/16/22 14:35 Lab Results 02/16/22 02/16/22 02/16/22 Range/Units 14:35 14:35 14:35 WBC 16.28 H (4.8-10.8) K/ul RBC 4.60 L (4.63-6.08) M/uL Hgb 14.7 (14.0-18.0) g/dl Hct 45.1 (40.1-51.0) % MCV 98.0 (80.0-100.0) fL MCH 32.0 (25.0-34.0) pg MCHC 32.6 (32.0-36.0) g/dL RDW Std Deviation 54.8 H (36.4-46.3) fL RDW Coeff of Nuno 15.3 H (11.5-14.5) % Plt Count 286 (130-400) K/uL MPV 8.7 L (9.4-12.4) fL Immature Gran % (Auto) 5.3 % Neut % (Auto) 81.7 % Lymph % (Auto) 8.8 % [place] % (Auto) 4.0 % Eos % (Auto) 0.0 % Baso % (Auto) 0.2 % Neut # (Auto) 13.29 H (1.4-6.5) K/uL Lymph # (Auto) 1.44 (1.2-3.4) K/uL [place] # (Auto) 0.65 (0.24-0.82) K/uL Eos # (Auto) 0.00 (0-0.50) K/uL Baso # (Auto) 0.04 (0-0.2) K/uL Immature Gran # (Auto) 0.86 H (0.00-0.02) K/uL APTT (21.0-31.0) Seconds PTT Ratio Sodium 141 (136-145) mmol/L Potassium 4.0 (3.5-5.1) mmol/L Chloride 106 (98-107) mmol/L Carbon Dioxide 30 (21-32) mmol/L Anion Gap 5 (3-11) BUN 34 H (6-23) mg/dl Creatinine 1.16 (0.6-1.4) mg/dl Est Cr Clr Drug Dosing Not Reportable Est GFR ( Amer) 65.7 ml/min Est GFR (Non-Af Amer) 56.7 ml/min BUN/Creatinine Ratio 29.3 H (10-20) Glucose 79 (70-99(Fasting)) mg/dl Calcium 9.8 (8.5-10.1) mg/dl Total Bilirubin 0.5 (0.2-1.0) mg/dl AST 25 (13-39) U/L ALT 26 (7-52) U/L Alkaline Phosphatase 117 H (34-104) U/L Troponin I High Sens 9.4 (0-20) pg/ml Total Protein 6.8 (6.0-8.3) gm/dl Albumin 3.1 L (3.4-5.0) gm/dl Globulin 3.7 (2.5-4.0) gm/dl Albumin/Globulin Ratio 0.8 L (0.9-2) SARS-CoV-2 (PCR) (Negative) Influenza Type A (PCR) (Neg) Influenza Type B (PCR) (Neg) RSV (RT-PCR) (Neg) 02/16/22 02/16/22 Range/Units 14:35 14:40 WBC (4.8-10.8) K/ul RBC (4.63-6.08) M/uL Hgb (14.0-18.0) g/dl Hct (40.1-51.0) % MCV (80.0-100.0) fL MCH (25.0-34.0) pg MCHC (32.0-36.0) g/dL RDW Std Deviation (36.4-46.3) fL RDW Coeff of Nuno (11.5-14.5) % Plt Count (130-400) K/uL MPV (9.4-12.4) fL Immature Gran % (Auto) % Neut % (Auto) % Lymph % (Auto) % [place] % (Auto) % Eos % (Auto) % Baso % (Auto) % Neut # (Auto) (1.4-6.5) K/uL Lymph # (Auto) (1.2-3.4) K/uL [place] # (Auto) (0.24-0.82) K/uL Eos # (Auto) (0-0.50) K/uL Baso # (Auto) (0-0.2) K/uL Immature Gran # (Auto) (0.00-0.02) K/uL APTT 29.3 (21.0-31.0) Seconds PTT Ratio 1.1 Sodium (136-145) mmol/L Potassium (3.5-5.1) mmol/L Chloride (98-107) mmol/L Carbon Dioxide (21-32) mmol/L Anion Gap (3-11) BUN (6-23) mg/dl Creatinine (0.6-1.4) mg/dl Est Cr Clr Drug Dosing Est GFR ( Amer) ml/min Est GFR (Non-Af Amer) ml/min BUN/Creatinine Ratio (10-20) Glucose (70-99(Fasting)) mg/dl Calcium (8.5-10.1) mg/dl Total Bilirubin (0.2-1.0) mg/dl AST (13-39) U/L ALT (7-52) U/L Alkaline Phosphatase (34-104) U/L Troponin I High Sens (0-20) pg/ml Total Protein (6.0-8.3) gm/dl Albumin (3.4-5.0) gm/dl Globulin (2.5-4.0) gm/dl Albumin/Globulin Ratio (0.9-2) SARS-CoV-2 (PCR) NEGATIVE (Negative) Influenza Type A (PCR) Negative (Neg) Influenza Type B (PCR) Negative (Neg) RSV (RT-PCR) Negative (Neg) Administered Medications Heparin Sodium/Dextrose (Heparin Sodium/Dextrose) 25,000 units in 500 mls @ 21 mls/hr IV .[id number] [facility]; Protocol Stop: 03/18/22 17:59 Last Admin: 02/16/22 18:59 Dose: 1,050 units/hr, 21 mls/hr Documented By: SHA Co-signed By: DASHAWN Discontinued Medications Heparin Sodium (Porcine) (Heparin Sod (Porcine) 1000 Unit/Ml) 1 units IV NOW ONE Stop: 02/16/22 17:58 Last Admin: 02/16/22 18:59 Dose: 5,000 units Documented By: SHA Co-signed By: DASHAWN Ioversol (Optiray 320 500ml) 108 ml IV ONCE ONE Stop: 02/16/22 17:14 Last Admin: 02/16/22 17:15 Dose: 108 ml Documented By: MYRIAM Imaging Data Radiologist's Impression: Chest X-Ray 02/16/22 14:20 SINGLE VIEW CHEST CLINICAL HISTORY: Dyspnea. History of lung cancer. FINDINGS: An AP, portable, upright chest radiograph is compared to study dated 02/11/2022 and correlated with chest CT dated 01/12/2022. The cardiomediastinal silhouette is top normal for projection noting atherosclerotic calcification of the thoracic aorta. Emphysema and chronic interstitial thickening is similar to previous. A chronic pleural collection and consolidative change/fibrosis at the right lung base is similar to prior studies. There is corresponding volume loss in the right lung. The small right apical nodule seen on the 01/12/[address] is not visualized by x-ray. There is minimal left basilar scarring/atelectasis. There is no pneumothorax. The skeletal structures are osteopenic. Chronic deformity is noted in the right-sided ribs. IMPRESSION: 1. Emphysema and chronic parenchymal changes as above with no acute cardiopulmonary abnormality identified. ACT 112: Negative or not required by law. Electronically signed by: Judd Cleary M.D. 02/16/2022 3:09 PM Chest CTA 02/16/22 16:29 CT angio chest PE protocol CLINICAL HISTORY: cough sob w/ cancer dx w/ recent pna TECHNIQUE: Multidetector row helical CT of the chest was performed with angiographic protocol. Coronal and sagittal reformations were obtained. Coronal and sagittal MIPS were obtained from the axial data set and were submitted for review. Automated dose lowering techniques and/or adjustment according to patient size were utilized for this exam. CT DOSE: 265.85 mGy.cm Comparison: Comparison is made to CT chest 01/12/2022 FINDINGS: Lungs and pleura: There is again noted is atelectasis of the left lower lobe with a thick walled right pleural effusion. Bronchial wall thickening is seen and there is tree-in-bud nodularity most prominently lower lobe, increased from prior exam. If symptoms changes are seen. Dominant pulmonary nodules are stable including an 11 mm nodule in the right upper lobe (series 4 image 124). Heart and pericardium: Heart size is normal. No pericardial effusion. Vessels: There is a pulmonary embolus in the left lower lobe in segmental and subsegmental branches. This was not seen on prior exam. Mediastinum and génesis: Large mediastinal lymph nodes are similar in appearance to prior exam including a 16 x 26 mm right hilar node and a right lower paratracheal node measuring 29 x 21 mm. Esophageal lymph nodes are also seen Chest wall and lower neck: Right axillary lymphadenopathy is noted. Abdomen: Partial visualization of intra-abdominal nodes. 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 Degenerative changes are seen in the spine. IMPRESSION: 1. There is a segmental/subsegmental pulmonary embolus in the right lower lobe. No right heart strain is seen. 2. Multifocal lymphadenopathy, similar to prior exam. 3. Right ninth rib destructive lesion is again seen. 4. Chronic pleural collection of the right lung base is similar to prior exam. 5. Stable pulmonary nodules as above. ACT 112: Negative or not required by law. Electronically signed by: Ross Rowley M.D. 02/16/2022 5:35 PM Discharge Plan Visit Data Chief Complaint: Illness Stated Complaint: PNEUMONIA NOT GETTING ANY BETTER ED Provider: Bennett Ford Discharge Problem: Pulmonary embolism, Leukocytosis, Breath shortness Patient Disposition: Admitted As Inpatient Discharge Instructions Interventions: ED Discharge Assessment Last Done: 02/16/22 19:10
--- NOTE | 2022-02-16 15:11 | XRay Report ---
SINGLE VIEW CHEST CLINICAL HISTORY: Dyspnea. History of lung cancer. FINDINGS: An AP, portable, upright chest radiograph is compared to study dated 02/11/2022 and correla sheldon with chest CT dated 01/12/2022. The cardiomediastinal silhouette is top normal for projection not ing atherosclerotic calcification of the thoracic aorta. Emphysema and chronic interstitial thickenin g is similar to previous. A chronic pleural collection and consolidative change/fibrosis at the right lung base is similar to prior studies. There is corresponding volume loss in the right lung. The sma ll right apical nodule seen on the 01/12/[address] is not visualized by x-ray. There is minimal l eft basilar scarring/atelectasis. There is no pneumothorax. The skeletal structures are osteopenic. C hronic deformity is noted in the right-sided ribs. IMPRESSION: 1. Emphysema and chronic parenchymal changes as above with no acute cardiopulmonary abnormality ident ified. ACT 112: Negative or not required by law. Electronically signed by: Judd Cleary M.D. 02/16/2022 3:09 PM
[2022-02-16 15:14] LABS: Alanine Aminotransferase 26 U/L (7-52); Albumin Globulin Ratio 0.8 (0.9-2); Albumin Level 3.1 gm/dl (3.4-5.0); Alkaline Phosphatase 117 U/L (34-104); Anion Gap 5 (3-11); Aspartate Aminotransferase 25 U/L (13-39); BUN Creatinine Ratio 29.3 (10-20); Bilirubin,Total 0.5 mg/dl (0.2-1.0); Blood Urea Nitrogen 34 mg/dl (6-23); Calcium 9.8 mg/dl (8.5-10.1); Carbon Dioxide 30 mmol/L (21-32); Chloride 106 mmol/L (98-107); Est GFR (African American) 65.7 ml/min; Est GFR (Non-African American) 56.7 ml/min; Globulin 3.7 gm/dl (2.5-4.0); Glucose 79 mg/dl (70-99(Fasting)); Sodium 141 mmol/L (136-145); Total Protein 6.8 gm/dl (6.0-8.3)
[2022-02-16 15:19] LABS: Basophils # (auto) 0.04 K/uL (0-0.2); Basophils % (auto) 0.2 %; Immature Granulocytes # (auto) 0.86 K/uL (0.00-0.02); Immature Granulocytes % (auto) 5.3 %; Lymphocytes # (auto) 1.44 K/uL (1.2-3.4); Lymphocytes % (auto) 8.8 %; Monocytes # (auto) 0.65 K/uL (0.24-0.82); Neutrophils # (auto) 13.29 K/uL (1.4-6.5); Neutrophils % (auto) 81.7 %
[2022-02-16 15:36] LABS: Influenza A virus by PCR Negative (Neg); Influenza B virus by PCR Negative (Neg); RSV by PCR Negative (Neg); SARS CoV2 RNA(COVID-19) Ceph NEGATIVE (Negative)
[2022-02-16] MEDS ORDERED: OPTIRAY 320 500ml IV ONE (17:13)
--- NOTE | 2022-02-16 17:36 | CT Scan Report ---
CT angio chest PE protocol CLINICAL HISTORY: cough sob w/ cancer dx w/ recent pna TECHNIQUE: Multidetector row helical CT of the chest was performed with angiographic protocol. Maria l and sagittal reformations were obtained. Coronal and sagittal MIPS were obtained from the axial keiko a set and were submitted for review. Automated dose lowering techniques and/or adjustment according to patient size were utilized for this exam. CT DOSE: 265.85 mGy.cm Comparison: Comparison is made to CT chest 01/12/2022 FINDINGS: Lungs and pleura: There is again noted is atelectasis of the left lower lobe with a thick walled righ t pleural effusion. Bronchial wall thickening is seen and there is tree-in-bud nodularity most promin ently lower lobe, increased from prior exam. If symptoms changes are seen. Dominant pulmonary nodules are stable including an 11 mm nodule in the right upper lobe (series 4 image 124). Heart and pericardium: Heart size is normal. No pericardial effusion. Vessels: There is a pulmonary embolus in the left lower lobe in segmental and subsegmental branches. This was not seen on prior exam. Mediastinum and génesis: Large mediastinal lymph nodes are similar in appearance to prior exam including a 16 x 26 mm right hilar node and a right lower paratracheal node measuring 29 x 21 mm. Esophageal lymph nodes are also seen Chest wall and lower neck: Right axillary lymphadenopathy is noted. Abdomen: Partial visualization of intra-abdominal nodes. 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 Degene rative changes are seen in the spine. IMPRESSION: 1. There is a segmental/subsegmental pulmonary embolus in the right lower lobe. No right heart strai n is seen. 2. Multifocal lymphadenopathy, similar to prior exam. 3. Right ninth rib destructive lesion is again seen. 4. Chronic pleural collection of the right lung base is similar to prior exam. 5. Stable pulmonary nodules as above. ACT 112: Negative or not required by law. Electronically signed by: Ross Rowley M.D. 02/16/2022 5:35 PM
[2022-02-16] MEDS ORDERED: Heparin IV Adult Wt-Based Standard WITH Bolus Protocol IV STA ×2 (17:42→17:49)
[2022-02-16] MEDS ORDERED: HEPARIN SOD (PORCINE) 1000 UNIT/ML IV ONE ×2 (17:57→19:00)
--- NOTE | 2022-02-16 17:57 | History & Physical Report ---
Date of Service February 16, 2022 Assessment & Plan (1) Pulmonary embolism: Plan: Patient is a subsegmental pulm embolism associate with metastatic malignancy. He is initiated on heparin drip. If he has good tolerance of this he may be converted to either Lovenox or a DOAC. 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 They are also intermittently concerned about an upcoming urological procedure help his BPH (2) Metastatic adenocarcinoma: Plan: Patient has a history of metastatic adenocarcinoma of the lung this is there is a destructive right ninth rib lesion (3) Atrial fibrillation: Plan: Patient history of atrial fibrillation currently in sinus rhythm we will continue metoprolol at this time (4) Hyperlipidemia: Plan: We will stop statin at this point in time (5) Empyema lung: Plan: Patient had empyema with pleural catheter drainage in July 2021 with mist 2 protocol. This appears similar to previous on today's CT angiogram Patient was placed on outpatient antibiotics and he does have an evidence of a leukocytosis subsequently blood cultures will be obtained and he will be transition to cefepime therapy. If the patient is of any clinical progression of infection and cultures are negative the admitting team's per [place] will be to continue or discontinue this medication. 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 Lehman is on tiotropium/olodaterol, has been on levofloxacin for possible outpatient pneumonia (transition to cefepime while inpatient) Plan A discussion with the patient self at the bedside he wishes to be a full code at this time Patient has mild protein calorie malnutrition likely based on his malignancy History of Present Illness Primary Care Provider: Yoan Nickerson MD 86-year-old male with a past medical history of metastatic adenocarcinoma not undergoing any treatment, A. 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 Had a evaluation by PCP and has been placed on Levaquin for possible outpatient pneumonia. Patient was found to have subsegmental pulmonary embolisms on CT scan and right 9 rib pathological destructive lesion. The family notes the patient's had declining functional status at home with inc reasing risk of falls having to take breaks walking up the stairs in his home difficulty emptying his chronic Cruz bag Patient was initiated on a heparin drip in the ER likely may benefit from Loven ox at that can be administered at home for a malignancy associated venous thromboembolism. Per Dr. Lehman's note from January this year, the patient and his may be interested in palliative care discussion. and daughter at the bedside and seem to not be quite ready to make the full dive into palliative care being concerned about an upcoming urological procedure 02/23/2022 Allergies Allergy/AdvReac Type Severity Reaction Status Date / Time amoxicillin [From Augmentin] Allergy Intermediate Rash Verified 02/16/22 18:04 clavulanic acid Allergy Intermediate Rash Verified 02/16/22 18:04 [From Augmentin] [id number]-ZAG-[id number] Reductase Allergy Unknown CAN'T Verified 02/16/22 18:04 Inhibitor REMEMBER Home Medications Medication Instructions Recorded Confirmed Type travoprost 0.004 % eye drops 1 drops OPB QPM 12/17/18 02/16/22 History (Travatan Z) timolol 0.5 % eye drops 1 drp OPB BID 05/18/20 02/16/22 History tamsulosin 0.4 mg capsule 0.4 mg PO DAILY #90 caps 08/31/21 02/16/22 Rx megestrol 400 mg/10 mL (10 mL) 400 mg PO DAILY 11/30/21 02/16/22 History oral suspension metoprolol succinate 25 mg 25 mg PO HS #90 tabs 12/03/21 02/16/22 Rx tablet,extended release 24 hr tiotropium 2.5 mcg-olodaterol 2.5 2 puff inhalation DAILY #4 grams 01/25/22 02/16/22 Rx mcg/actuation mist for inhalation (Stiolto Respimat) levofloxacin 750 mg tablet 750 mg PO DAILY 7 days #7 tabs 02/10/22 02/16/22 Rx ciprofloxacin HCl 500 mg tablet 500 mg PO BID #10 tabs 02/11/22 02/16/22 Rx (Cipro) diazepam 10 mg tablet 10 mg PO ONCE #1 tab 02/11/22 02/16/22 Rx cyanocobalamin (vitamin B-12) 5,000 mcg sublingual DAILY 02/16/22 02/16/22 History 5,000 mcg sublingual tablet (Vitamin B-12) ergocalciferol (vitamin D2) 1,250 1,250 mcg PO WK 02/16/22 02/16/22 History mcg (50,000 unit) capsule multivitamin 1 tab PO DAILY 02/16/22 02/16/22 History pravastatin 20 mg tablet 20 mg PO HS 02/16/22 02/16/22 History Past Med/Surg History Medical History Actinic keratosis Acute gout Benign colon polyp BPH loc w urin obs/LUTS Carotid artery plaque Empyema lung Essential (primary) hypertension Glaucoma Hematuria Metastatic adenocarcinoma Pleural effusion on right Productive cough Renal cyst, right Sensorineural hearing loss (SNHL) of both ears Tinnitus Surgical History History of prostate biopsy S/P cataract surgery Status post Mohs surgery Family History Daughter Colon cancer Mother Congestive heart failure Father Congestive heart failure Denies family history of Ovarian cancer Prostate cancer Myocardial infarction Breast cancer Social History Smoking Status: Former smoker Tobacco Type: Cigarettes Cigarettes Per Day: PIPE SMOKE FOR 5 YEARS - QUIT 50 YEARS AGO; Second Hand Exposure: No; Hx Alcohol Use: No Hx Substance Use: No Preferred Language: Azeri Communication Ability: Impaired Communication Tools: Other Visual Impairment: No Limitations Hearing Ability: Normal Athletic Equipment Manager Required: Yes Beliefs That Will Affect Care: None marital status: Current Living Situation: Spouse current occupational status: retired Feels Safe at Home: Yes Childhood Exposure to Second-Hand Smoke: Yes Dental Care, Regularly: Yes Physical Activity Frequency: Daily Seatbelt Use: always Sunscreen Use: Yes Assistive Devices: Walker and Other (shower chair) Review of Systems Review of Systems: Moderate distress and fatigue with functional decline no headache, no visual changes no speech or swallowing issues no chest pain, pressure or palpitations Progressive dyspnea on exertion having to stop while walking upstairs no abdominal pain, nausea or vomiting, diarrhea or constipation no dysuria, hematuria or frequency no focal joint pain did have right calf pain no back pain, CVA tenderness or radicular pain no bruising, bleeding or rashes no focal signs of weakness or numbness or altered sensation no complaints of anxiety or depression.. Physical Exam Physical Exam: The patient appeared chronically ill and slightly withdrawn Vital signs as documented. Head exam is normocephalic atraumatic Neck is without JVD, thyromegaly, or carotid bruits. Lungs are clear to auscultation, right basilar absence of breath sounds and dullness to percussion Cardiac exam, Rhythm is regular.. Systolic ejection murmur Abdominal exam reveals normal bowel sounds, soft non tender, no masses Extremities are nonedematous and both pedal pulses are present Previous right calf pain is resolved there are no cords there is no focal edema Neurologic exam is alert and oriented, no focal loss of strength or sensation Skin is without bruises or rashes Psychologically is without concerns for anxiety or depression.. Results & Data Results & Data ([facility] [place]) Vital Signs (Past 12 Hours) Vital Signs Temp Pulse Pulse Resp BP BP Pulse Ox 02/16/22 16:15 74 19 144/88 H 96 02/16/22 14:15 75 19 146/88 H 99 02/16/22 16:01 02/16/22 14:15 97.3 F L 111 H 20 127/70 92 Pulse Ox O2 Del Method 02/16/22 16:15 Room Air 02/16/22 14:15 Room Air 02/16/22 16:01 95 02/16/22 14:15 Room Air Diagnostic Findings Chest X-Ray 02/16/22 14:20 SINGLE VIEW CHEST CLINICAL HISTORY: Dyspnea. History of lung cancer. FINDINGS: An AP, portable, upright chest radiograph is compared to study dated 02/11/2022 and correlated with chest CT dated 01/12/2022. The cardiomediastinal silhouette is top normal for projection noting atherosclerotic calcification of the thoracic aorta. Emphysema and chronic interstitial thickening is similar to previous. A chronic pleural collection and consolidative change/fibrosis at the right lung base is similar to prior studies. There is corresponding volume loss in the right lung. The small right apical nodule seen on the 01/12/[address] is not visualized by x-ray. There is minimal left basilar scarring/atelectasis. There is no pneumothorax. The skeletal structures are osteopenic. Chronic deformity is noted in the right-sided ribs. IMPRESSION: 1. Emphysema and chronic parenchymal changes as above with no acute cardiopulmonary abnormality identified. ACT 112: Negative or not required by law. Electronically signed by: Judd Cleary M.D. 02/16/2022 3:09 PM Chest CTA 02/16/22 16:29 CT angio chest PE protocol CLINICAL HISTORY: cough sob w/ cancer dx w/ recent pna TECHNIQUE: Multidetector row helical CT of the chest was performed with angiographic protocol. Coronal and sagittal reformations were obtained. Coronal and sagittal MIPS were obtained from the axial data set and were submitted for review. Automated dose lowering techniques and/or adjustment according to patient size were utilized for this exam. CT DOSE: 265.85 mGy.cm Comparison: Comparison is made to CT chest 01/12/2022 FINDINGS: Lungs and pleura: There is again noted is atelectasis of the left lower lobe with a thick walled right pleural effusion. Bronchial wall thickening is seen and there is tree-in-bud nodularity most prominently lower lobe, increased from prior exam. If symptoms changes are seen. Dominant pulmonary nodules are stable including an 11 mm nodule in the right upper lobe (series 4 image 124). Heart and pericardium: Heart size is normal. No pericardial effusion. Vessels: There is a pulmonary embolus in the left lower lobe in segmental and subsegmental branches. This was not seen on prior exam. Mediastinum and génesis: Large mediastinal lymph nodes are similar in appearance to prior exam including a 16 x 26 mm right hilar node and a right lower paratracheal node measuring 29 x 21 mm. Esophageal lymph nodes are also seen Chest wall and lower neck: Right axillary lymphadenopathy is noted. Abdomen: Partial visualization of intra-abdominal nodes. 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 Degenerative changes are seen in the spine. IMPRESSION: 1. There is a segmental/subsegmental pulmonary embolus in the right lower lobe. No right heart strain is seen. 2. Multifocal lymphadenopathy, similar to prior exam. 3. Right ninth rib destructive lesion is again seen. 4. Chronic pleural collection of the right lung base is similar to prior exam. 5. Stable pulmonary nodules as above. Electronically signed by: Ross Rowley M.D. 02/16/2022 5:35 PM ECG Additional Comments: EKG on presentation shows sinus mechanism no acute ST or T wave changes PG Care Time/CCT Total # of Minutes Spent Total Time Spent with Patient: Total time spent is greater than 50% in coordination of care (as documented) at patient's floor/unit and/or counseling patient: Coding Level of Care Code 50436 Initial Inpt Care Lvl 3 Diagnoses Pulmonary embolism I26.99 Metastatic adenocarcinoma C79.9 Atrial fibrillation I48.91 Hyperlipidemia E78.5 Empyema lung J86.9 Mixed restrictive and obstructive lung disease J43.9; J98.4
[2022-02-16] MEDS: HEPARIN SODIUM/DEXTROSE 25,000 UNITS/500 ML BAG IV SCH (18:59)
[2022-02-16 19:14] LABS: Partial Thromboplastin Ratio 1.1; Partial Thromboplastin Time 29.3 Seconds (21.0-31.0)
[2022-02-16] MEDS ORDERED: ACETAMINOPHEN 325 MG TAB PO PRN (19:43)
[2022-02-16] MEDS ORDERED: METOPROLOL TARTRATE 1 MG/ML VIAL IV PRN (19:43)
[2022-02-16] MEDS ORDERED: ALUMINUM/MAGNESIUM SUSP 30 ML UDC PO PRN (19:43)
[2022-02-16] MEDS ORDERED: PNEUMOCOCCAL POLYSACCHARIDES 25 MCG/0.5 ML VIAL/SYR IM ONE (20:48)
[2022-02-16] MEDS: TRAVOPROST Z 0.004% OPH SOLN 2.5 ML BTL OP SCH (21:38)
[2022-02-16] MEDS: TIMOLOL MALEATE 0.5% OP SOLN 5 ML BTL OP SCH (21:39)
[2022-02-16] MEDS: METOPROLOL SUCC 25MG EXT REL TAB PO SCH (21:39)
[2022-02-16] MEDS: CEFEPIME 2,000 MG in SYRINGE 0 ML IV SCH (21:40)
[2022-02-17 01:33] LABS: Partial Thromboplastin Ratio 3.5
[2022-02-17 02:03] LABS: Partial Thromboplastin Time 95.3 Seconds (21.0-31.0)
--- NOTE | 2022-02-17 07:22 | Electrocardiogram Report ---
Test Reason : Blood Pressure : / mmHG Vent. Rate : 073 BPM Atrial Rate : 073 BPM P-R Int : 222 ms QRS Dur : 066 ms QT Int : 364 ms P-R-T Axes : 032 -04 062 degrees QTc Int : 401 ms Sinus rhythm with 1st degree A-V block Otherwise normal ECG When compared with ECG of 14-NOV-2021 21:33, Vent. rate has decreased BY 40 BPM QRS axis Shifted right Confirmed by Evangelist Murdock ([id number]) on 02/17/2022 7:22:42 AM Referred By: Confirmed By:Evangelist Murdock
[2022-02-17 08:29] LABS: Hematocrit (blood only) 41.2 % (40.1-51.0); Hemoglobin 13.6 g/dl (14.0-18.0); Mean Corpuscular Hemoglobin 31.5 pg (25.0-34.0); Mean Corpuscular Volume 95.4 fL (80.0-100.0); Platelet Count 226 K/uL (130-400); RDW Coefficient of Variation 15.2 % (11.5-14.5); RDW Standard Deviation 52.4 fL (36.4-46.3); Red Blood Count 4.32 M/uL (4.63-6.08); White Blood Count 12.71 K/ul (4.8-10.8)
[2022-02-17 08:54] LABS: Partial Thromboplastin Ratio 2.6
[2022-02-17 08:58] LABS: BUN Creatinine Ratio 25.4 (10-20); Calcium 9.1 mg/dl (8.5-10.1); Creatinine Clr Calc Pharmacy 38.6 ml/min; Est GFR (African American) 67.1 ml/min; Est GFR (Non-African American) 57.9 ml/min; Magnesium 1.9 mg/dl (1.7-2.4); Potassium 4.5 mmol/L (3.5-5.1)
[2022-02-17] MEDS: TIMOLOL MALEATE 0.5% OP SOLN 5 ML BTL OP SCH ×2 (08:58→21:01)
[2022-02-17] MEDS: MEGESTROL ACETATE SUSP 400 MG/10 ML UDC PO SCH (08:58)
[2022-02-17] MEDS: TAMSULOSIN HCL 0.4 MG CAP PO SCH (08:58)
[2022-02-17] MEDS: UMECLIDINIUM/VILANTEROL 62.5/25MCG 7 PUFFS/INHALER INH SCH (08:59)
[2022-02-17 09:08] LABS: Partial Thromboplastin Time 72.2 Seconds (21.0-31.0)
[2022-02-17] MEDS: CEFEPIME 2,000 MG in SYRINGE 0 ML IV SCH ×2 (10:13→21:01)
[2022-02-17 16:57] LABS: Partial Thromboplastin Ratio 2.4
[2022-02-17 17:02] LABS: Partial Thromboplastin Time 65.5 Seconds (21.0-31.0)
[2022-02-17] MEDS: HEPARIN SODIUM/DEXTROSE 25,000 UNITS/500 ML BAG IV SCH (17:35)
[2022-02-17] MEDS: TRAVOPROST Z 0.004% OPH SOLN 2.5 ML BTL OP SCH (21:01)
[2022-02-17] MEDS: METOPROLOL SUCC 25MG EXT REL TAB PO SCH (21:01)
--- NOTE | 2022-02-17 21:55 | Hospitalist Progress Note ---
Date of Service February 17, 2022 Assessment & Plan (1) Pulmonary embolism: Plan: Patient is a subsegmental pulm embolism associate with metastatic malignancy. He is initiated on heparin drip. If he has good tolerance of this he may be converted to either Lovenox or a DOAC. 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 They are also intermittently concerned about an upcoming urological procedure help his BPH. For now will continue heparin and will likely transition him to Eliquis in AM. Will also consult palliative care. Had extensive talk with family. (2) Metastatic adenocarcinoma: Plan: Patient has a history of metastatic adenocarcinoma of the lung this is there is a destructive right ninth rib lesion (3) Atrial fibrillation: Plan: Patient history of atrial fibrillation currently in sinus rhythm we will continue metoprolol at this time (4) Hyperlipidemia: Plan: We will stop statin at this point in time (5) Empyema lung: Plan: Patient had empyema with pleural catheter drainage in July 2021 with mist 2 protocol. This appears similar to previous on today's CT angiogram Patient was placed on outpatient antibiotics and he does have an evidence of a leukocytosis subsequently blood cultures will be obtained and he will be transition to cefepime therapy. If the patient is of any clinical progression of infection and cultures are negative the admitting team's per Ar[place] will be to continue or discontinue this medication. 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 Ugalde is on tiotropium/olodaterol, has been on lev ofloxacin for possible outpatient pneumonia (transition to cefepime while inpatient) Plan A discussion with the patient self at the bedside he wishes to be a full code at this time Patient has mild protein calorie malnutrition likely based on his malignancy Admission and Anticipated Discharge Date Admission Date: February 16, 2022 Subjective 86 yo male reports feeling somewhat stronger today. He has no new complaints. His is at bedside and is updated, then his daughter was updated on speaker as well. Review of Systems Review of Systems: All systems reviewed & are unremarkable except as noted in HPI & below Physical Exam Physical Exam: The patient appeared chronically ill Vital signs as documented. Head exam is normocephalic atraumatic Neck is without JVD, thyromegaly, or carotid bruits. Lungs are clear to auscultation, right basilar absence of breath sounds and dullness to percussion Cardiac exam, Rhythm is regular.. Systolic ejection murmur Abdominal exam reveals normal bowel sounds, soft non tender, no masses Extremities are nonedematous and both pedal pulses are present Previous right calf pain is resolved there are no cords there is no focal edema Neurologic exam is alert and oriented, no focal loss of strength or sensation Skin is without bruises or rashes Psychologically is without concerns for anxiety or depression. Results & Data Results & Data ([facility]) Vital Signs (Past 12 Hours) Vital Signs Temp Pulse Pulse Resp BP BP Pulse Ox 02/17/22 19:35 36.8 C 78 18 132/68 94 02/17/22 16:30 36.8 C 73 18 111/71 95 02/17/22 15:33 79 02/17/22 12:51 36.3 C L 72 18 117/66 95 02/17/22 11:44 O2 Del Method 02/17/22 19:35 Room Air 02/17/22 16:30 Room Air 02/17/22 15:33 02/17/22 12:51 Room Air 02/17/22 11:44 Room Air PG Care Time/CCT Total # of Minutes Spent Total Time Spent with Patient: Total time spent is greater than 50% in coordination of care (as documented) at patient's floor/unit and/or counseling patient: Prolonged Care Time Prolonged Care Time: Yes Total Prolonged Care Time: 65 9:00 to 9:30 13:00 to 13:35 Coding Level of Care Code 60235 Subseq Hosp Care Lvl 3 (25 - SIGNIFICANT, SEPARATELY IDENTIFIABLE ) Diagnoses Pulmonary embolism I26.99 Metastatic adenocarcinoma C79.9 Atrial fibrillation I48.91 Hyperlipidemia E78.5 Empyema lung J86.9 Mixed restrictive and obstructive lung disease J43.9; J98.4 Additional Codes Prolonged Care Time - Prolonged Care Time: Yes ([id number]) Time Spent (min) 65
[2022-02-18 06:08] LABS: Hematocrit (blood only) 40.6 % (40.1-51.0); Hemoglobin 13.4 g/dl (14.0-18.0); Mean Corpuscular Hemoglobin 31.8 pg (25.0-34.0); Mean Corpuscular Volume 96.2 fL (80.0-100.0); Platelet Count 213 K/uL (130-400); RDW Coefficient of Variation 15.2 % (11.5-14.5); RDW Standard Deviation 53.8 fL (36.4-46.3); Red Blood Count 4.22 M/uL (4.63-6.08); White Blood Count 12.97 K/ul (4.8-10.8)
[2022-02-18 06:43] LABS: BUN Creatinine Ratio 27.1 (10-20); Basophils # (manual) 0.13 K/uL (0-0.2); Basophils % (manual) 1 %; Calcium 8.4 mg/dl (8.5-10.1); Est GFR (African American) 72.5 ml/min; Est GFR (Non-African American) 62.5 ml/min; Lymphocytes # (manual) 0.91 K/uL (1.2-3.4); Lymphocytes % (manual) 7 %; Magnesium 1.8 mg/dl (1.7-2.4); Monocytes # (manual) 0.52 K/uL (0.24-0.82); Monocytes % (manual) 4 %; Myelocytes # (manual) 0.13 K/uL (0-0); Myelocytes % (manual) 1 %; Neutrophils # (manual) 11.41 K/uL (1.4-6.5); Neutrophils % (manual) 88 %; Potassium 4.1 mmol/L (3.5-5.1)
[2022-02-18 06:47] LABS: Partial Thromboplastin Time 81.4 Seconds (21.0-31.0)
[2022-02-18] MEDS: UMECLIDINIUM/VILANTEROL 62.5/25MCG 7 PUFFS/INHALER INH SCH (08:41)
[2022-02-18] MEDS: TAMSULOSIN HCL 0.4 MG CAP PO SCH (08:42)
[2022-02-18] MEDS: TIMOLOL MALEATE 0.5% OP SOLN 5 ML BTL OP SCH (08:42)
[2022-02-18] MEDS: MEGESTROL ACETATE SUSP 400 MG/10 ML UDC PO SCH (08:42)
[2022-02-18] MEDS ORDERED: ERGOCALCIFEROL 50,000 UNITS 1250 MCG CAP PO SCH (09:00)
[2022-02-18] MEDS ORDERED: APIXABAN 5 MG TABLET PO SCH (09:00)
--- NOTE | 2022-02-18 09:20 | Electrocardiogram Report ---
Test Reason : Blood Pressure : / mmHG Vent. Rate : 196 BPM Atrial Rate : 326 BPM P-R Int : 000 ms QRS Dur : 108 ms QT Int : 104 ms P-R-T Axes : 000 041 000 degrees QTc Int : 187 ms Poor data quality, interpretation may be adversely affected Probable Sinus rhythm Abnormal ECG When compared with ECG of 16-FEB-2022 14:35, No significant change Confirmed by Brannon Vogt ([id number]) on 02/18/2022 9:19:49 AM Referred By: REFERRED SELF Confirmed By:Brannon Vogt
[2022-02-18] MEDS: CEFEPIME 2,000 MG in SYRINGE 0 ML IV SCH (11:57)
[2022-02-18 13:13] LABS: Partial Thromboplastin Ratio 1.4; Partial Thromboplastin Time 37.9 Seconds (21.0-31.0)
--- NOTE | 2022-02-23 16:12 | Discharge Summary ---
Date of Service February 18, 2022 Admission HPI Per Admitting Provider 86-year-old male with a past medical history of metastatic adenocarcinoma not undergoing any treatment, A. 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 Had a evaluation by PCP and has been placed on Levaquin for possible outpatient pneumonia. Patient was found to have subsegmental pulmonary embolisms on CT scan and right 9 rib pathological destructive lesion. The family notes the patient's had declining functional status at home with increasing risk of falls having to take breaks walking up the stairs in his home difficulty emptying his chronic Curz bag Patient was initiated on a heparin drip in the ER likely may benefit from Lovenox at that can be administered at home for a malignancy associated venous thromboembolism. Per Dr. Lehman's note from January this year, the patient and his may be interested in palliative care discussion. and daughter at the bedside and seem to not be quite ready to make the full dive into palliative care being concerned about an upcoming urological procedure 02/23/2022 Principal Diagnosis pulmonary embolism Discharge Exam The patient appeared chronically ill Vital signs as documented. Head exam is normocephalic atraumatic Neck is without JVD, thyromegaly, or carotid bruits. Lungs are clear to auscultation, right basilar absence of breath sounds and dullness to percussion Cardiac exam, Rhythm is regular.. Systolic ejection murmur Abdominal exam reveals normal bowel sounds, soft non tender, no masses Extremities are nonedematous and both pedal pulses are present Previous right calf pain is resolved there are no cords there is no focal edema Neurologic exam is alert and oriented, no focal loss of strength or sensation Skin is without bruises or rashes Psychologically is without concerns for anxiety or depression. Discharge Data Allergies Allergy/AdvReac Type Severity Reaction Status Date / Time amoxicillin [From Augmentin] Allergy Intermediate Rash Verified 02/16/22 18:04 clavulanic acid Allergy Intermediate Rash Verified 02/16/22 18:04 [From Augmentin] Zkcgojl-PRE-DfG Reductase Allergy Unknown CAN'T Verified 02/16/22 18:04 Inhibitor REMEMBER Consultations 02/16/22 17:42 ED Decision to Admit Stat 02/17/22 15:42 Consult Palliative Care Routine Ordered Studies 02/16/22 16:29 CT angio chest PE protocol Stat Hospital Course (1) Pulmonary embolism: Patient is a subsegmental pulm embolism associate with metastatic malignancy. He is initiated on heparin drip. If he has good tolerance of this he may be converted to either Lovenox or a DOAC. Because this is a malignancy associated VTE the patient may need lifelong an ticoagulation however the family seems to be cooperating with whether he should enter palliative care as he stopped active treatment for his malignancy in the early fall of this year. They are also intermittently concerned about an upcoming urological procedure help his BPH. For now will continue heparin and transitioned him to Eliquis in AM. Will also consult palliative care. Had extensive talk with family. The patient has a medical condition that requires repositioning of the body in ways not feasibe with an ordinary bed in order to alleviate pain. The patient requirs the head of the bed to be elevated more than 30 degrees due to chronic pulmonary disease. Pillows and wedges have been considered and ruled out (2) Metastatic adenocarcinoma: Patient has a history of metastatic adenocarcinoma of the lung this is there is a destructive right ninth rib lesion (3) Atrial fibrillation: Patient history of atrial fibrillation currently in sinus rhythm we will continue metoprolol at this time (4) Hyperlipidemia: We will stop statin at this point in time (5) Empyema lung: Patient had empyema with pleural catheter drainage in July 2021 with mist 2 protocol. This appears similar to previous on today's CT angiogram Patient was placed on outpatient antibiotics and he does have an evidence of a leukocytosis subsequently blood cultures will be obtained and he will be transition to cefepime therapy. No signs of clinical progression. Will discharge on antibiotics to cover for pneumonia. (6) Mixed restrictive and obstructive lung disease: Patient follows with Dr. Ugalde is on tiotropium/olodaterol, has been on levofloxacin for possible outpatient pneumonia (transition to cefepime while inpatient) Plan A discussion with the patient self at the bedside he wishes to be a full code at this time Patient has mild protein calorie malnutrition likely based on his malignancy Total Time Total Time Spent Total Time Spent (In Minutes): 35 Discharge Plan Discharge Items Patient Disposition: Home - Home Health Services Reason For Visit: SUBSEG PE, MET ADENO CA, LEUOCYTOSIS Discharge Diagnosis: subsegmental Pulmonary emboli Activity: Resume your previous activity Non-emergency contact: Primary Care Provider Call non-emergency contact if: you have any medication questions Follow-up/Referrals: Yoan Nickerson MD [Primary Care Provider] - Diet: Regular Addtl Attending Provider Instructions: Recommend to keep follow-up with palliative care next week. Continue antibiotics for 5 more days. Continue Eliquis lifelong. Pending Studies at Discharge: No Stand-Alone Forms: My [facility] MYFX, Smoking Cessation Medications and DC Order Prescriptions: New Eliquis 5 mg Tablet 5 mg PO BID Qty: 60 0RF Rx Instructions: Please take 2 tablets twice a day for 7 days (last dose February 24 PM) then 1 tab twice a day until finished. will need refills cefuroxime axetil 500 mg tablet 500 mg PO BID Qty: 10 0RF azithromycin 500 mg tablet See Rx Instructions .ROUTE .COMPLEX Qty: 3 0RF Rx Instructions: For 500 mg dose pack: take 500 mg once daily for 3 days Continued tamsulosin 0.4 mg capsule 0.4 mg PO DAILY Qty: 90 3RF metoprolol succinate 25 mg tablet extended release 24 hr 25 mg PO HS Qty: 90 1RF diazepam 10 mg tablet 10 mg PO ONCE Qty: 1 0RF Rx Instructions: PROCEDURE ON HOLD, NEVER TOOK1 hour prior to procedure timolol 0.5 % drops 1 drp OPB BID Stiolto Respimat 2.5-2.5 mcg/actuation mist 2 puff inhalation DAILY Qty: 4 6RF megestrol 400 mg/10 mL (10 mL) suspension 400 mg PO DAILY Travatan Z 0.004 % drops 1 drops OPB QPM multivitamin Tablet 1 tab PO DAILY cyanocobalamin (vitamin B-12) [Vitamin B-12] 5,000 mcg Tablet, Sublingual 5,000 mcg SUBLINGUAL DAILY ergocalciferol (vitamin D2) 1,250 mcg (50,000 unit) capsule 1,250 mcg PO WK Rx Instructions: TAKES ON MONDAY EVENING Discontinued ciprofloxacin HCl [Cipro] 500 mg tablet 500 mg PO BID Qty: 10 0RF Rx Instructions: NEVER STARTED PROCEDURE ON HOLDStart 1.5 days prior to procedure levofloxacin 750 mg tablet 750 mg PO DAILY 7 Days Qty: 7 0RF Rx Instructions: STARTED 02/10/22 FOR 7 DAYS. pravastatin 20 mg tablet 20 mg PO HS Discharge Orders: Discharge Order (Routine); Ordered 02/18/22 Ordered By: Alex John Admission Data Admit Date/Time: 02/16/22 18:07 Attending Provider: Alex John Admit Provider: Christopher Gonzalez Primary Care Provider: Yoan Nickerson Other Providers: Christopher Gonzalez ; [facility]ope Rush ; [facility] ; [place] Other Interventions: Discharge Summary Assessment (RN) Last Done: 02/18/22 17:23 Coding Level of Care Code D/C DAY MANAGEMENT >30 MINS Diagnoses Pulmonary embolism I26.99 Metastatic adenocarcinoma C79.9 Atrial fibrillation I48.91 Hyperlipidemia E78.5 Empyema lung J86.9 Mixed restrictive and obstructive lung disease J43.9; J98.4
== END 2022-02-18 18:07 | disposition home health service (06) | DRG 176 ==
LOC: ED 14:14 → 4W 18:07 → SUATTDRO 18:07 → 4W 19:10